=== PATIENT | female | born 1935 | race African-American/Black ===

== ENCOUNTER → 2016-11-18 | Outpatient (CLI) | payer MEDICARE ==
[2016-11-18 13:19] LABS: ABSOLUTE BASOPHILS # (AUTO) 0.1 10^3/uL (0.0-0.2); ABSOLUTE EOSINOPHILS # (AUTO) 0.2 10^3/uL (0.0-0.6); ABSOLUTE LYMPHOCYTES (AUTO) 2.4 10^3/uL (0.5-4.7); ABSOLUTE MONOCYTES (AUTO) 0.8 10^3/uL (0.1-1.4); ABSOLUTE NEUT (AUTO) 6.1 10^3/uL (1.7-8.2); BASOPHILS % (AUTO) 0.7 % (0-2); EOSINOPHILS % (AUTO) 2.2 % (0-6); HEMATOCRIT 31.3 % (36.0-47.0); HEMOGLOBIN 10.1 g/dL (12.0-15.5); MEAN CORPUSCULAR HEMOGLOBIN 21.2 pg (27.0-33.4); MEAN CORPUSCULAR HGB CONC 32.3 g/dL (32.0-36.0); MEAN CORPUSCULAR VOLUME 66 fl (80-97); MONOCYTES % (AUTO) 8.7 % (3-13); RED BLOOD COUNT 4.77 10^6/uL (3.72-5.28); SEGMENTED NEUTROPHILS % (AUTO) 63.4 % (42-78); WHITE BLOOD COUNT 9.7 10^3/uL (4.0-10.5)
[2016-11-18 13:42] LABS: ALANINE AMINOTRANSFERASE 34 U/L (9-52); ALBUMIN 4.1 g/dL (3.5-5.0); ALKALINE PHOSPHATASE 76 U/L (38-126); ANION GAP 15 (5-19); ASPARTATE AMINO TRANSFERASE 30 U/L (14-36); BILIRUBIN,DIRECT 0.3 mg/dL (0.0-0.4); BILIRUBIN,TOTAL 0.5 mg/dL (0.2-1.3); BLOOD UREA NITROGEN 41 mg/dL (7-20); C-REACTIVE PROTEIN 15.6 mg/L (<10.0); CALCIUM 9.8 mg/dL (8.4-10.2); CARBON DIOXIDE 19 mmol/L (22-30); CHLORIDE 109 mmol/L (98-107); CREATININE RESULT 1.51 mg/dL (0.52-1.25); GLUCOSE 146 mg/dL (75-110); POTASSIUM 4.5 mmol/L (3.6-5.0); SODIUM 142.6 mmol/L (137-145); TOTAL PROTEIN 7.5 g/dL (6.3-8.2)
[2016-11-18 13:56] LABS: ERYTHROCYTE SEDIMENTATION RATE 45 mm/hr (0-30)
== END ==
LOC: WC 13:00
PROVIDERS: ATTEND Preventive Medicine Undersea and Hyperbaric Medicine
DX: E11.621 Type 2 diabetes mellitus with foot ulcer (principal); L97.412 Non-pressure chronic ulcer of right heel and midfoot with fat layer exposed
CPT/HCPCS: 36415; 80053; 83036; 85025; 85652; 86140

== ENCOUNTER → 2016-11-18 | Outpatient (CLI) | payer MEDICARE | LOC: RAD 12:32 | PROVIDERS: ATTEND Preventive Medicine Undersea and Hyperbaric Medicine | DX: L97.412 Non-pressure chronic ulcer of right heel and midfoot with fat layer exposed (principal) ==

== ENCOUNTER → 2016-12-30 | Outpatient (CLI) | payer MEDICARE ==
--- NOTE | 2016-12-30 15:56 | RADIOLOGY REPORT (SQ) ---
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 TECHNIQUE: AP, lateral and oblique radiographic images acquired of the right foot. LIMITATIONS: None. FINDINGS: MINERALIZATION: Normal. BONES: The previously described large plantar ulcer with radiopaque ileum and along the surface is ag ain identified. The previously described subtle bony demineralization along the plantar aspect of th e calcaneus at the level of the calcaneal plantar spur is again identified and appears unchanged. Ag ain the possibility of bony involvement by osteomyelitis cannot be excluded. Bony structures are oth erwise stable. JOINTS: No effusions. SOFT TISSUES: The previously described large plantar ulcer is again identified as noted above. OTHER: No other significant finding. IMPRESSION: The overall appearance is unchanged as compared to the previous study. The previously d escribed large plantar ulcer is again identified. The previously described subtle bony demineralizat ion along the plantar aspect of the calcaneus at the level of the calcaneal plantar spur is again bertram ntified and appears unchanged. Again the possibility of bony involvement by osteomyelitis cannot be excluded. Clinical correlation is recommended. Other findings as noted above TECHNICAL DOCUMENTATION: JOB ID: [id number]- All Rights Reserved
== END ==
LOC: RAD 14:21
PROVIDERS: ATTEND Preventive Medicine Undersea and Hyperbaric Medicine
DX: L97.412 Non-pressure chronic ulcer of right heel and midfoot with fat layer exposed (principal)

== ENCOUNTER → 2017-01-09 | Outpatient (CLI) | payer MEDICARE, OTHER ==
--- NOTE | 2017-01-10 08:09 | WOMENS IMAGING REPORT ---
EXAM DESCRIPTION: BILAT SCREENING MAMMO W/CAD COMPLETED DATE/TIME: 01/09/2017 1:29 pm REASON FOR STUDY: Z12.31, ROUTINE SCREENING MAMMO Z12.31 ENCNTR SCREEN MAMMOGRAM FOR MALIGNANT NEOP LASM OF YFN COMPARISON: Multiple since 2009 TECHNIQUE: Standard craniocaudal and mediolateral oblique views of each breast recorded using Opality[employer] l acquisition. LIMITATIONS: None. FINDINGS: Findings present which are benign by mammographic criteria. No suspicious masses, calcifi cations or architectural distortion. Pertinent benign findings: Bilateral benign calcifications Read with the assistance of CAD. .[place] - R2 Cenova Version 1.3 .[facility] - R2 Cenova Version 1.3 .[facility] - R2 Cenova Version 2.4 .[facility] - R2 Cenova Version 2.4 .[facility] - R2 Liquor Runner Version 9.2 Benign mammographic findings may include one or more of the following: Smooth masses, popcorn/rim/co arse calcifications, asymmetries, post-procedure changes, and lesions with long-standing stability. IMPRESSION: BENIGN MAMMOGRAPHIC FINDINGS. BIRADS 2 BREAST DENSITY: b. There are scattered areas of fibroglandular density. BIRAD: 2 BENIGN FINDING(S) RECOMMENDATION: ROUTINE SCREENING COMMENT: The patient has been notified of the results by letter per MQSA requirements. Additional no tification policies are in place for contacting patient with suspicious or incomplete findings. Quality ID #[id number]: The [employer] recommends an annual screening mammogram for women aged 40 years or over. This facility utilizes a reminder system to ensure that all patients receive reminder letters, and/or direct phone calls for appointments. This includes reminders for routine scr eening mammograms, diagnostic mammograms, or other Breast Imaging Interventions when appropriate. Th is patient will be placed in the appropriate reminder system. The [employer] (ACR) has developed recommendations for screening MRI of the breast s in certain patient populations, to be used in conjunction with mammography. Breast MRI surveillanc e may be appropriate for women with more than 20% lifetime risk of developing breast cancer as deter mined by genetic testing, significant family history of the disease, or history of mantle radiation f or Hodgkins Disease. ACR Practice Guidelines 2008. TECHNICAL DOCUMENTATION: FINDING NUMBER: (1) ASSESSMENT: (1) JOB ID: [id number] [email or web address]- All Rights Reserved
== END ==
LOC: WI 11:30
PROVIDERS: ATTEND Physician Assistant
DX: Z12.31 Encounter for screening mammogram for malignant neoplasm of breast (principal)
CPT/HCPCS: 77067; G0202

== ENCOUNTER → 2017-04-25 | Outpatient (CLI) | payer MEDICARE, OTHER ==
[2017-04-25 18:27] LABS: ABSOLUTE BASOPHILS # (AUTO) 0.1 10^3/uL (0.0-0.2); ABSOLUTE EOSINOPHILS # (AUTO) 0.2 10^3/uL (0.0-0.6); ABSOLUTE LYMPHOCYTES (AUTO) 2.4 10^3/uL (0.5-4.7); ABSOLUTE MONOCYTES (AUTO) 0.7 10^3/uL (0.1-1.4); ABSOLUTE NEUT (AUTO) 4.5 10^3/uL (1.7-8.2); BASOPHILS % (AUTO) 0.9 % (0-2); EOSINOPHILS % (AUTO) 2.3 % (0-6); HEMATOCRIT 30.8 % (36.0-47.0); HEMOGLOBIN 10.1 g/dL (12.0-15.5); HGB HCT DIFFERENCE -0.5; LYMPHOCYTES % (AUTO) 30.1 % (13-45); MEAN CORPUSCULAR HEMOGLOBIN 21.6 pg (27.0-33.4); MEAN CORPUSCULAR HGB CONC 32.9 g/dL (32.0-36.0); MEAN CORPUSCULAR VOLUME 66 fl (80-97); MONOCYTES % (AUTO) 9.5 % (3-13); RED BLOOD COUNT 4.68 10^6/uL (3.72-5.28); RED CELL DISTRIBUTION WIDTH 16.5 % (11.5-14.0); SEGMENTED NEUTROPHILS % (AUTO) 57.2 % (42-78); WHITE BLOOD COUNT 7.8 10^3/uL (4.0-10.5)
[2017-04-25 18:47] LABS: ALANINE AMINOTRANSFERASE 32 U/L (9-52); ALBUMIN 3.9 g/dL (3.5-5.0); ALKALINE PHOSPHATASE 69 U/L (38-126); ANION GAP 12 (5-19); ASPARTATE AMINO TRANSFERASE 28 U/L (14-36); BILIRUBIN,DIRECT 0.4 mg/dL (0.0-0.4); BILIRUBIN,TOTAL 0.4 mg/dL (0.2-1.3); BLOOD UREA NITROGEN 37 mg/dL (7-20); C-REACTIVE PROTEIN 9.4 mg/L (<10.0); CARBON DIOXIDE 25 mmol/L (22-30); CHLORIDE 106 mmol/L (98-107); CREATININE RESULT 1.47 mg/dL (0.52-1.25); GLUCOSE 106 mg/dL (75-110); POTASSIUM 4.7 mmol/L (3.6-5.0); SODIUM 142.5 mmol/L (137-145); TOTAL PROTEIN 7.5 g/dL (6.3-8.2)
[2017-04-25 19:13] LABS: ERYTHROCYTE SEDIMENTATION RATE 41 mm/hr (0-30)
== END ==
LOC: RAD 17:32
PROVIDERS: ATTEND Preventive Medicine Undersea and Hyperbaric Medicine
DX: E11.621 Type 2 diabetes mellitus with foot ulcer (principal); L97.512 Non-pressure chronic ulcer of other part of right foot with fat layer exposed
CPT/HCPCS: 36415; 80053; 83036; 85025; 85652; 86140

== ENCOUNTER 2019-03-23 19:55 | Emergency (ER) | payer MEDICARE ==
--- NOTE | 2019-03-23 20:27 | ER Document Report ---
ED Medical Screen (RME) - General Chief Complaint: Fall Stated Complaint: FALL Time Seen by Provider: 03/23/19 20:18 Primary Care Provider: SIN ACEVEDO PA-C [Primary Care Provider] - Follow up as needed Notes: HPI: 83-year-old female with a history of diabetes, chronic debilitation who only transfers minimally with assistance at baseline, history of chronic left- sided weakness, decubitus ulcers on bilat feet, here after she attempted to get up out of her chair without waiting for assistance to go to the restroom and subsequently tripped and lost her balance and fell onto her buttocks and hit her left shoulder on the chair. The patient's daughter who she lives with was in the adjacent room and heard her fall and immediately went to her side. she wasn't laying on the floor long. She states the patient was sitting down with her legs out in front of her and leaning on her left shoulder. she denies hitting her head. no loc. no vomiting. no ams,. no seizure like activity. no incontinence. She complains of neck pain, left shoulder/arm pain. Patient is a poor historian so history is limited. She denies any preceding fall symptoms. She denies any pain anywhere else. She does take aspirin but denies any other blood thinners. She has PT/OT at home which just started secondary to her chronic left-sided weakness which daughter and patient state is unchanged. She is not able to lift her left arm up or much at all without using her other arm to move it. This is her baseline however she usually does not have pain. Patient does not walk either at baseline. No numbness or tingling. No other complaints at this time. ROS neg to include 10 systems, unless mentioned in the hpi. PE:>>>> PHYSICAL_EXAM: GENERAL_APPEARANCE: well_nourished, alert, cooperative, no_acute_distress, no_obvious_discomfort. pleasant, obese chronically debilitated appearing but not toxic elderly black female, smiling, speaking in full sentences, in no sign of pain or resp distress, daughter andn grandson at bedside VITALS: reviewed, see vital signs table. HEAD: no_swelling\tenderness on the head. normocephalic. atraumatic. no christiansen signs. no raccoons eyes. EYES: PERRL, EOMI, conjunctiva_clear. NOSE: no_nasal_discharge. MOUTH: (-)decreased moisture. THROAT: no_tonsilar_inflammation, no_airway_obstruction. no_lymphadenopathy NECK: supple, no midline neck_tenderness, no step offs or deformities. pt sits in position of comfort with neck flexed. she has ttp of bilat paracervical musculature. spasm noted. palpation here reproduces pts pain. no overlying skin changes. slight decreased rom in pts neck which this appears could be her baseline. full strength. no meningeal signs. no sign of central cord syndrome. BACK: no_back_tenderness. CHEST_WALL: no_chest_tenderness other than over left upper anterior chest/clavicle region. no overlying skin changes LUNGS: no_wheezing, ctab (-)accessory muscle use, good air exchange bilateral. HEART: normal_rate, normal_rhythm, ABDOMEN: normal_BS, soft, no_abd_tenderness, (-)guarding, (-)rebound, no distension or peritoneal signs. no cva ttp EXTREMITIES: strength 5/5 in all_extremities except left arm which pt has no active strength or rom in the arm and only is able to do some passive rom in the left shoulder, elbow, and wrist limiting exam as it is hard to discern if this is her baseline or not, good pulses in all_extremities, no other tenderness in the extremities, chronic unchanged bilat lower extremity_edema. full rom. gait not assessed as pt is nonambulatory at baseline and a fall risk. snuff box ttp is questionable in the left wrist. good pulses. brisk cap refill. good hand piercer with the right being slightly stronger than the left which appears to be the pts baseline per pt and daughter also. chronic bilat leg edema in hosing and special orthotic shoes. these weren't removed. NEURO: motor and sensation intact, SKIN: warm, dry, good_color, no_rash. MENTAL_STATUS: speech_clear, oriented_X_3, normal_affect, responds_appropriately to questions. MDM: I have ordered labs and initial work-up and patient will be transferred to the main ER for further work-up. I have greeted and performed a rapid initial assessment of this patient. A comprehensive ED assessment and evaluation of the patient, analysis of test results and completion of medical decision making process will be conducted by an additional ED providers. Documentation achieved through voice recording which my lead to some occasional accidental typographical errors. Extensive efforts have been made to proof read documentation to make sure these are the least as possible Temp Pulse Resp BP Pulse Ox 03/23/19 20:08 98.4 F 90 20 190/77 H 97 Category Date Time Status EKG Documentation STAT Care 03/23/19 20:30 Ordered EKG Documentation STAT Care 03/23/19 20:30 Ordered CHEST 2 VIEWS [RAD] Stat Exams 03/23/19 20:[address] CERVICAL SPINE WITHOUT [CT] Stat Exams 03/23/19 20:28 Ordered Left Elbow [ELBOW LEFT AP/LATERAL] [RAD] Stat Exams 03/23/19 20:28 Ordered Left Shoulder [SHOULDER LEFT 2 OR MORE VIEWS] [RAD] Exams 03/23/19 20:28 Ordered Stat Left Wrist [WRIST LEFT 3 VIEWS] [RAD] Stat Exams 03/23/19 20:29 Ordered URINALYSIS [URIN] Stat Lab 03/23/19 20:12 Received Acetaminophen [Tylenol 325 mg Tablet] Med 03/23/19 20:42 Once 650 mg PO NOW ONE EKG ER ONLY [ER] Stat Oth 03/23/19 Ordered TRAVEL OUTSIDE OF THE [place] IN LAST 30 DAYS: No - Related Data Allergies/Adverse Reactions: No Known Allergies Allergy (Verified 03/23/19 19:59) Past Medical History - Past Medical History Cardiac Medical History: Reports: Hx Hypercholesterolemia, Hx Hypertension, Hx Peripheral Vascular Disease Denies: Hx Coronary Artery Disease, Hx Heart Attack Pulmonary Medical History: Denies: Hx Asthma, Hx Bronchitis, Hx COPD, Hx Pneumonia, Hx Tuberculosis Neurological Medical History: Denies: Hx Cerebrovascular Accident, Hx Seizures Endocrine Medical History: Reports: Hx Diabetes Mellitus Type 2 GI Medical History: Reports: Hx Gastroesophageal Reflux Disease Musculoskeltal Medical History: Reports Hx Arthritis, Reports Hx Musculoskeletal Deformity Skin Medical History: Reports Hx Cellulitis Past Surgical History: Reports: Hx Cardiac Catheterization - Stents, Hx Orthopedic Surgery - R foot surgery. Denies: Hx Pacemaker - Immunizations Hx Diphtheria, Pertussis, Tetanus Vaccination: Yes Physical Exam - Vital signs Vitals: Temp Pulse Resp BP Pulse Ox 98.4 F 90 20 190/77 H 97 03/23/19 20:08 03/23/19 20:08 03/23/19 20:08 03/23/19 20:08 03/23/19 20:08 Course - Vital Signs Vital signs: Temp Pulse Resp BP Pulse Ox 98.4 F 90 20 190/77 H 97 03/23/19 20:08 03/23/19 20:08 03/23/19 20:08 03/23/19 20:08 03/23/19 20:08 Doctor's Discharge - Discharge Referrals: SIN ACEVEDO PA-C [Primary Care Provider] - Follow up as needed
[2019-03-23 20:38] LABS: APPEARANCE,URINE SLIGHTLY-CLOUDY; BILIRUBIN,URINE NEGATIVE (NEGATIVE); COLOR,URINE YELLOW; GLUCOSE, URINE NEGATIVE (NEGATIVE); KETONES,URINE NEGATIVE (NEGATIVE); LEUKOCYTE ESTERASE,URINE SMALL (NEGATIVE); NITRITE,URINE NEGATIVE (NEGATIVE); PROTEIN,URINE NEGATIVE (NEGATIVE); URINE SPECIFIC GRAVITY 1.014; UROBILINOGEN,URINE NEGATIVE mg/dL (<2.0)
[2019-03-23] MEDS ORDERED: ACETAMINOPHEN 325 MG TABLET PO ONE (20:42)
--- NOTE | 2019-03-23 21:27 | RADIOLOGY REPORT (SQ) ---
CT CERVICAL SPINE WITHOUT IV CONTRAST EXAM DATE: 03/23/2019 8:28 PM CDT HISTORY: Neck pain. COMPARISON: None. TECHNIQUE: CT scan of the cervical spine without IV contrast. This exam was performed according to our departmental dose-optimization program, which includes automated exposure control, adjustment of the mA and/or kV according to patient size and/or use of iterative reconstruction technique. FINDINGS: No acute cervical fracture or prevertebral soft tissue swelling is seen. There is straightening of the normal cervical lordosis, which may be due to cervical collar, muscle spasm, or patient positioning. Multilevel degenerative disc disease along with facet arthropathy is present. There are multilevel disc bulges but without advanced canal stenosis identified. IMPRESSION: No acute fracture or subluxation of the cervical spine.
--- NOTE | 2019-03-23 21:30 | RADIOLOGY REPORT (SQ) ---
3 VIEWS OF LEFT SHOULDER AND WRIST 2 VIEWS OF LEFT ELBOW EXAM DATE: 03/23/2019 8:28 PM CDT HISTORY: Fall. COMPARISON: None. FINDINGS: No acute fracture or dislocation is seen. A subacromial spur is noted. Calcific tendinosis of the flexor tendon complex is noted. No elbow joint effusion. Generalized osteopenia is present. Mineralization of the TFCC. IMPRESSION: No acute fracture. Scattered degenerative changes.
--- NOTE | 2019-03-23 21:32 | RADIOLOGY REPORT (SQ) ---
XR CHEST 1 VIEW EXAM DATE: 03/23/2019 8:29 PM CDT HISTORY: Fall. COMPARISON: 03/08/2016 FINDINGS: The heart size is within normal limits. There is a mildly displaced fracture of the right sixth posterior rib with adjacent pulmonary contusion. No pleural effusions or pneumothorax is seen. IMPRESSION: Mildly displaced fracture of the right sixth posterior rib with adjacent pulmonary contusion in the right lung. Consider CT scan for complete evaluation.
[2019-03-24] MEDS ORDERED: CEPHALEXIN 500 MG CAPSULE PO ONE (00:32)
--- NOTE | 2019-03-24 00:40 | ER Document Report ---
ED General - General Chief Complaint: Fall Stated Complaint: FALL Time Seen by Provider: 03/23/19 20:18 Primary Care Provider: SIN ACEVEDO PA-C [Primary Care Provider] - Follow up as needed Mode of Arrival: Wheelchair Information source: Patient, Relative TRAVEL OUTSIDE OF THE [place] IN LAST 30 DAYS: No - HPI Notes: Patient is a 83-year-old female history of chronic weakness, who is minimally able to ambulate short distance with a walker with assistance chronically presents to the emergency department with reports she was trying to get out of her chair and slipped and fell injuring her left shoulder, left lateral chest, left elbow, left hand and neck. The patient denies any head injury or loss of consciousness or headache. No anterior chest pain or difficulty breathing or numbness or paresthesia. Patient states she has chronic weakness and has physical therapy coming to the house once to twice a week to assist her, although she is not doing any other exercises. She denies any constipation, diarrhea, dysuria, nausea, vomiting. - Related Data Allergies/Adverse Reactions: No Known Allergies Allergy (Verified 03/23/19 19:59) Past Medical History - General Information source: Patient, Relative - Social History Smoking Status: Never Smoker Frequency of alcohol use: None Drug Abuse: None Lives with: Family Family History: Reviewed & Not Pertinent, Hypertension Patient has suicidal ideation: No Patient has homicidal ideation: No - Past Medical History Cardiac Medical History: Reports: Hx Hypercholesterolemia, Hx Hypertension, Hx Peripheral Vascular Disease Denies: Hx Coronary Artery Disease, Hx Heart Attack Pulmonary Medical History: Denies: Hx Asthma, Hx Bronchitis, Hx COPD, Hx Pneumonia, Hx Tuberculosis Neurological Medical History: Denies: Hx Cerebrovascular Accident, Hx Seizures Endocrine Medical History: Reports: Hx Diabetes Mellitus Type 2 Renal/ Medical History: Denies: Hx Peritoneal Dialysis GI Medical History: Reports: Hx Gastroesophageal Reflux Disease Musculoskeletal Medical History: Reports Hx Arthritis, Reports Hx Musculoskeletal Deformity Skin Medical History: Reports Hx Cellulitis Past Surgical History: Reports: Hx Cardiac Catheterization - Stents, Hx Orthopedic Surgery - R foot surgery. Denies: Hx Pacemaker - Immunizations Hx Diphtheria, Pertussis, Tetanus Vaccination: Yes Hx Pneumococcal Vaccination: 07/11/12 Review of Systems - Review of Systems -: Yes All other systems reviewed and negative Physical Exam - Vital signs Vitals: Temp Pulse Resp BP Pulse Ox 98.4 F 90 20 190/77 H 97 03/23/19 20:08 03/23/19 20:08 03/23/19 20:08 03/23/19 20:08 03/23/19 20:08 - Notes Notes: PHYSICAL EXAMINATION: GENERAL: Well-appearing, well-nourished and in no acute distress. HEAD: Atraumatic, normocephalic. EYES: Pupils equal round and reactive to light, extraocular movements intact, conjunctiva are normal. ENT: Nares patent, oropharynx clear without exudates. Moist mucous membranes. NECK: Normal range of motion, supple without lymphadenopathy. Mild discomfort left paraspinal region cervical spine. No bony deformity. Trachea is midline. LUNGS: Breath sounds clear to auscultation bilaterally and equal. No wheezes rales or rhonchi. HEART: Regular rate and rhythm without murmurs. Patient does have some pain to the left lateral lower chest wall region. No bony deformity or crepitance. Patient denies any significant pain to the right posterior lateral rib cage corresponding to the sixth rib, but she does acknowledge a fall over a month ago and had pain for several weeks there. ABDOMEN: Soft, nontender, nondistended abdomen. No guarding, no rebound. No masses appreciated. Female : deferred Musculoskeletal: Normal range of motion, no pitting or edema. No cyanosis. Patient has mild pain through the left shoulder and elbow and wrist with a contusion to the dorsum of the hand. No specific hand pain. No crepitance or bony deformity. Distally, the patient has good sensation and capillary refill and pulses. Patient has 2+ edema both lower extremities. She does have chronic valgus deformity through the left lower extremity which is also unchanged. NEUROLOGICAL: Cranial nerves grossly intact. Normal speech. Normal sensory exams. Patient has a gross generalized weakness more pronounced in the lower extremities which is chronic. No acute abnormality noted on exam. Good motor strength both upper extremities. PSYCH: Normal mood, normal affect. SKIN: Warm, Dry, normal turgor, no rashes or lesions noted. Course - Re-evaluation Re-evalutation: 03/24/19 00:36 X-rays were negative on the shoulder elbow and wrist. Patient was able to hold this up against gravity without difficulty. 03/24/19 00:38 Patient shows no specific pain over the right posterior lateral rib cage, and this fracture is subacute by history. There is no evidence for significant pulmonary contusion or effusion or pneumothorax or pneumonia. No obvious left- sided rib fractures. No evidence for cardiac ischemia. Patient has had a recent CT scan of the head within the last 2 to 3 weeks according to family which showed no acute CVA or other abnormality, and her regular practitioner is following up with PT concerning the progressive weakness and difficulty ambulating. I discussed with the patient and family the possibility of assisted living versus a fci placement versus rehab if symptoms do not improve, and they will follow-up with her regular practitioner. - Vital Signs Vital signs: Temp Pulse Resp BP Pulse Ox 98.4 F 90 20 190/77 H 97 03/23/19 20:08 03/23/19 20:08 03/23/19 20:08 03/23/19 20:08 03/23/19 20:08 - Laboratory Laboratory results interpreted by me: 03/23/19 20:12 Ur Leukocyte Esterase SMALL H Urine Ascorbic Acid 40 H Discharge - Discharge Clinical Impression: Accidental fall Qualifiers: Encounter type: initial encounter Qualified Code(s): W19.XXXA - Unspecified fall, initial encounter Rib fracture Qualifiers: Encounter type: initial encounter Rib fracture type: single rib Fracture type: closed Laterality: right Qualified Code(s): S22.31XA - Fracture of one rib, right side, initial encounter for closed fracture Sprain of shoulder and upper arm Qualifiers: Encounter type: initial encounter Laterality: left Qualified Code(s): S43.402A - Unspecified sprain of left shoulder joint, initial encounter Contusion Qualifiers: Encounter type: initial encounter Contusion area: hand Laterality: left Qualified Code(s): S60.222A - Contusion of left hand, initial encounter Urinary tract infection Qualifiers: Urinary tract infection type: acute cystitis Hematuria presence: without hematuria Qualified Code(s): N30.00 - Acute cystitis without hematuria Condition: Stable Disposition: HOME, SELF-CARE Additional Instructions: Talk with your doctor about having physical therapy come by 3-5 times per week to assist with rehab. Exercise daily using weights and exercise bands. Prescriptions: Cephalexin Monohydrate [Keflex 500 mg Capsule] 500 mg PO TID 5 Days capsule Referrals: SIN ACEVEDO PA-C [Primary Care Provider] - Follow up as needed
[2019-03-24 00:58] VITALS: BP 148/74
--- NOTE | 2019-03-24 14:53 | EKG REPORT ---
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
== END 2019-03-24 00:56 | disposition home or self-care (01) ==
LOC: ER 19:55
DX: S43.402A Unspecified sprain of left shoulder joint, initial encounter (principal); S60.222A Contusion of left hand, initial encounter; M25.512 Pain in left shoulder; M25.522 Pain in left elbow; M25.532 Pain in left wrist; W07.XXXA Fall from chair, initial encounter; Y93.89 Activity, other specified; S22.31XA Fracture of one rib, right side, initial encounter for closed fracture; W19.XXXA Unspecified fall, initial encounter; R00.0 Tachycardia, unspecified; N30.00 Acute cystitis without hematuria; I45.2 Bifascicular block; R53.1 Weakness; I10 Essential (primary) hypertension; E11.51 Type 2 diabetes mellitus with diabetic peripheral angiopathy without gangrene; Z95.5 Presence of coronary angioplasty implant and graft; R60.0 Localized edema
CPT/HCPCS: 93005; 99284; 87086; 81001; 71045; 73070; 73030; 73110; 72125; 93010; A9270 ×2

== ENCOUNTER 2019-12-23 18:53 | Inpatient (IN) | payer MEDICARE ==
[2019-12-23] MEDS ORDERED: NORMAL SALINE 1000 ML 1,000 ML IV ONE (19:14)
[2019-12-23] MEDS ORDERED: MIDAZOLAM HCL 50 MG/100 ML RTUINJ IV PRN (19:15)
[2019-12-23] MEDS ORDERED: DEXTROSE 5%-WATER 250 ML with NOREPINEPHRINE BITARTRATE 4 MG IV PRN ×2 (19:15)
--- NOTE | 2019-12-23 19:33 | RADIOLOGY REPORT (SQ) ---
EXAM DESCRIPTION: CHEST SINGLE VIEW IMAGES COMPLETED DATE/TIME: 12/23/2019 7:20 pm REASON FOR STUDY: post arrest COMPARISON: 03/23/2019 EXAM PARAMETERS: NUMBER OF VIEWS: One view. TECHNIQUE: Single frontal radiographic view of the chest acquired. RADIATION DOSE: NA LIMITATIONS: None. FINDINGS: LUNGS AND PLEURA: Small bilateral pleural effusions suggested. No acute pulmonary consol idation. No pneumothorax. MEDIASTINUM AND HILAR STRUCTURES: No masses. Contour normal. HEART AND VASCULAR STRUCTURES: Stable appearance. Heart normal in size. Normal vasculature. BONES: The osseous structures are stable in appearance. Old healed right rib fracture. HARDWARE: Endotracheal tube is approximately 1.2 cm superior to the zora. OTHER: No other significant finding. IMPRESSION: 1. Status post endotracheal tube placement, with the tip approximately 1.2 cm superior to the zora. The tube needs to be repositioned. 2. Small bilateral pleural effusions suggested. COMMENT: 1. The results of this examination were discussed with emergency department provider on at 19:26 hours. TECHNICAL DOCUMENTATION: JOB ID: [id number] [employer]- All Rights Reserved Reading location - IP/workstation name: [email or web address]
--- NOTE | 2019-12-23 19:33 | ER Document Report ---
ED General - General Chief Complaint: Cardiac Arrest Stated Complaint: CARDIAC ARREST Time Seen by Provider: 12/23/19 19:02 TRAVEL OUTSIDE OF THE [place] IN LAST 30 DAYS: No - HPI Notes: Patient is an 84-year-old female brought into the emergency department by EMS for cardiac arrest. Initial history obtained entirely from EMS. Evidently the patient had a witnessed arrest. Family initiated CPR. There was a total of approximately 10 minutes from CPR initiation to ROSC. No epinephrine given, only high-quality CPR. Patient underwent RSI in the field, was started on Levophed when found to be hypotensive. She had responded well to this medicine, and is brought into the emergency department for further evaluation. Per EMS, patient has a history of high blood pressure, high cholesterol, and diabetes. Family also stated that she had a "bone infection" but they could not offer any further details in regards to this. - Related Data Allergies/Adverse Reactions: No Known Allergies Allergy (Verified 03/23/19 19:59) Past Medical History - General Information source: Emergency Med Personnel, [facility] Records - Social History Smoking Status: Never Smoker Family History: Reviewed & Not Pertinent, Hypertension Patient has homicidal ideation: No - Past Medical History Cardiac Medical History: Reports: Hx Hypercholesterolemia, Hx Hypertension, Hx Peripheral Vascular Disease Denies: Hx Coronary Artery Disease, Hx Heart Attack Pulmonary Medical History: Denies: Hx Asthma, Hx Bronchitis, Hx COPD, Hx Pneumonia, Hx Tuberculosis Neurological Medical History: Denies: Hx Cerebrovascular Accident, Hx Seizures Endocrine Medical History: Reports: Hx Diabetes Mellitus Type 2 Renal/ Medical History: Denies: Hx Peritoneal Dialysis GI Medical History: Reports: Hx Gastroesophageal Reflux Disease Musculoskeletal Medical History: Reports Hx Arthritis, Reports Hx Musculoskeletal Deformity Skin Medical History: Reports Hx Cellulitis Past Surgical History: Reports: Hx Cardiac Catheterization - Stents, Hx Orthopedic Surgery - R foot surgery. Denies: Hx Pacemaker - Immunizations Hx Diphtheria, Pertussis, Tetanus Vaccination: Yes Hx Pneumococcal Vaccination: 07/11/12 Review of Systems - Review of Systems -: Yes ROS unobtainable due to patient's medical condition - Patient sedated and intubated at this time Physical Exam - Vital signs Vitals: Temp 98.0 F 12/23/19 18:53 - Notes Notes: This is an 84-year-old female, lying supine in bed 5. She is intubated, sedated. Head is normocephalic and appears atraumatic, pupils are 2 mm and round bilaterally. Oral mucosa is moist. Heart is regular rate and rhythm, lungs show equal chest wall rise, breath sounds bilaterally. No gurgling over the epigastrium. Abdomen is soft, no palpable hernias. Extremities without cyanosis, clubbing. Skin is warm and dry. She does have a puckered callus noted over the left calcaneus, no significant surrounding edema or erythema. Patient is rolled, no clear cellulitis sores or ulcerations are noted. No spontaneous movements at this time, but patient did receive sedation in the field. Course - Re-evaluation Re-evalutation: 12/23/19 19:32 Patient presents to the emergency department for evaluation after cardiac arrest/PEA. The patient had return of circulation. She was maintained on a Levophed drip for hypotension. Laboratory investigations, Castro catheter were ordered. Chest x-ray was ordered, which revealed the ET tube to be low. Order given verbally to notify respiratory therapy to withdraw the ET tube 3 cm. Patient is currently stable. Awaiting laboratory investigations, we will continue to monitor. 12/23/19 20:23 Nursing was unable to obtain labs. Decision was made to perform a femoral stick. The area was thoroughly cleansed using chlorhexidine prep. Ultrasound was used to identify the left femoral artery and femoral vein. Using an 18- gauge, I did advance the needle into the femoral vein under direct visualization. Dark venous blood, without pulsation, was obtained. Lab work and cultures were obtained. The needle was withdrawn. Hemostasis was achieved within 30 seconds with direct pressure. No complications noted. 12/23/19 22:09 I was able to further clarify history with daughter. She was not present, but was the primary roving sizer for her mother for some time. Evidently she recently moved from [place]. She has right-sided weakness, does not walk, nevertheless several months has not been talking. She has had progressive dysphagia. According to family she "was not well." They thought it was because she had not had a bowel movement in several days. She was treated for that on Friday, had bowel movements, and they thought there was an improvement. He it was then reported that the patient was hallucinating, acting more strangely, then suffered cardiac arrest. It is unclear at this time as to whether or not this was witnessed. 12/23/19 22:[address] scan failed to reveal any signs of fracture or acute bleeding. I did go in to reevaluate the patient. She is opening her eyes, is able to follow some commands. Versed therapy was initiated, had been previously being held to evaluate neurological status. I spoke with RUBIO Burton and construction checker overnight. He will accept the patient for further care. 12/23/19 23:36 Patient is still in the department. Decision was made to perform rapid COVID-19 testing. This is pending at this time. Patient's urinalysis revealed signs consistent with a UTI. Urine culture ordered. Blood cultures are already pending. The patient was given IV Rocephin. - Vital Signs Vital signs: Temp Pulse Resp BP Pulse Ox 98.0 F 16 159/79 H 100 12/23/19 18:53 12/23/19 22:10 12/23/19 22:10 12/23/19 22:10 - Laboratory Result Diagrams: 12/23/19 20:20 12/23/19 20:20 Laboratory results interpreted by me: 12/23/19 12/23/19 12/23/19 19:45 20:20 20:20 RBC 5.54 H MCV 72 L MCH 22.3 L MCHC 31.0 L RDW 16.1 H Lymph % (Auto) 11.1 L Borden % (Auto) 2.7 L Absolute Neuts (auto) 8.5 H Seg Neutrophils % 86.2 H PT 20.4 H ABG pO2 273.4 H ABG HCO3 28.9 H ABG Total CO2 30.2 H ABG O2 Saturation 99.7 H Carbon Dioxide BUN Glucose Albumin Urine Protein Urine Glucose (UA) Urine Ketones Urine Blood Leukocyte Esterase Rfl 12/23/19 12/23/19 20:20 22:02 RBC MCV MCH MCHC RDW Lymph % (Auto) Borden % (Auto) Absolute Neuts (auto) Seg Neutrophils % PT ABG pO2 ABG HCO3 ABG Total CO2 ABG O2 Saturation Carbon Dioxide 32 H BUN 33 H Glucose 265 H Albumin 3.4 L Urine Protein 30 H Urine Glucose (UA) 150 H Urine Ketones TRACE H Urine Blood SMALL H Leukocyte Esterase Rfl LARGE H - Diagnostic Test Radiology reviewed: Image reviewed, Reports reviewed Radiology results interpreted by me: 12/23/19 22:33 Chest X-Ray 12/23/19 19:14 IMPRESSION: 1. Status post endotracheal tube placement, with the tip approximately 1.2 cm superior to the zora. The tube needs to be repositioned. 2. Small bilateral pleural effusions suggested. Head CT 12/23/19 20:22 IMPRESSION: No acute intracranial abnormality. Age-appropriate atrophy with minor small vessel ischemic change TECHNICAL DOCUMENTATION: Quality ID # 436: Final reports with documentation of one or more dose reduction techniques (e.g., Automated exposure control, adjustment of the mA and/or kV according to patient size, use of iterative reconstruction technique) copyright 2011 [employer]- All Rights Reserved Critical Care Note - Critical Care Note Total time excluding time spent on procedures (mins): 45 Discharge - Discharge Clinical Impression: Cardiac arrest Urinary tract infection Qualifiers: Urinary tract infection type: site unspecified Hematuria presence: without hematuria Qualified Code(s): N39.0 - Urinary tract infection, site not specified Condition: Stable Disposition: ADMITTED INPATIENT Admitting Provider: Lawanda (Road Roller Engineer) Unit Admitted: ICU
[2019-12-23 20:08] LABS: ARTERIAL BLOOD BASE EXCESS 4.4 mmol/L; ARTERIAL BLOOD FIO2 70%; ARTERIAL BLOOD H2CO3 1.28 mmol/L (1.05-1.35); ARTERIAL BLOOD HCO3 28.9 mmol/L (20-24); ARTERIAL BLOOD O2 SATURATION 99.7 % (94-98); ARTERIAL BLOOD PCO2 42.5 mmHg (35-45); ARTERIAL BLOOD PH 7.45 (7.35-7.45); ARTERIAL BLOOD PO2 273.4 mmHg (80-100); ARTERIAL BLOOD TOTAL CO2 30.2 mmol/L (21-25)
[2019-12-23 20:35] LABS: ABSOLUTE LYMPHOCYTES (AUTO) 1.1 10^3/uL (0.5-4.7); ABSOLUTE MONOCYTES (AUTO) 0.3 10^3/uL (0.1-1.4); ABSOLUTE NEUT (AUTO) 8.5 10^3/uL (1.7-8.2); HEMATOCRIT 39.9 % (36.0-47.0); HEMOGLOBIN 12.4 g/dL (12.0-15.5); LYMPHOCYTES % (AUTO) 11.1 % (13-45); MEAN CORPUSCULAR HEMOGLOBIN 22.3 pg (27.0-33.4); MEAN CORPUSCULAR VOLUME 72 fl (80-97); MONOCYTES % (AUTO) 2.7 % (3-13); PLATELET COUNT 226 10^3/uL (150-450); RED BLOOD COUNT 5.54 10^6/uL (3.72-5.28); RED CELL DISTRIBUTION WIDTH 16.1 % (11.5-14.0); SEGMENTED NEUTROPHILS % (AUTO) 86.2 % (42-78); TOTAL CELLS COUNTED % (AUTO) 100 %; WHITE BLOOD COUNT 9.9 10^3/uL (4.0-10.5)
[2019-12-23 20:45] LABS: INTERNATIONAL RATION (INR) 1.72; PROTHROMBIN TIME 20.4 SEC (11.4-15.4)
[2019-12-23 20:54] LABS: ALBUMIN 3.4 g/dL (3.5-5.0); ALKALINE PHOSPHATASE 57 U/L (38-126); ANION GAP 6 (5-19); ASPARTATE AMINO TRANSFERASE 23 U/L (14-36); BILIRUBIN,TOTAL 0.7 mg/dL (0.2-1.3); BLOOD UREA NITROGEN 33 mg/dL (7-20); CALCIUM 9.6 mg/dL (8.4-10.2); CARBON DIOXIDE 32 mmol/L (22-30); CHLORIDE 103 mmol/L (98-107); GLUCOSE 265 mg/dL (75-110); POTASSIUM 4.5 mmol/L (3.6-5.0); TOTAL PROTEIN 6.5 g/dL (6.3-8.2)
--- NOTE | 2019-12-23 22:21 | RADIOLOGY REPORT (SQ) ---
EXAM DESCRIPTION: CT HEAD WITHOUT IV CONTRAST COMPLETED DATE/TME: 12/23/2019 20:22 CLINICAL HISTORY: 84 years, Female, cardiac arrest, unresponsive COMPARISON: None. TECHNIQUE: 205 Images stored on PACS. All CT scanners at this facility use dose modulation, iterative reconstruction, and/or weight based dosing when appropriate to reduce radiation dose to as low as reasonably achievable (ALARA). [facility]: Dose Right [facility]: CareDose [facility]: Dose Right [facility]: Teradose 4D [facility]: Quill LIMITATIONS: None. FINDINGS: The globes are intact. Paranasal sinuses are well aerated. Endotracheal tube partially visualized. No displaced or depressed skull fracture. Increased secretions in the nasal cavities. No acute intracranial hemorrhage. CT is limited for evaluation of acute infarct. No CT evidence for large or territorial acute infarct. Diffuse age-appropriate atrophy. No mass or midline shift. Hypodensities in the periventricular and subcortical white matter, consistent with sequelae of small vessel ischemic change. IMPRESSION: No acute intracranial abnormality. Age-appropriate atrophy with minor small vessel ischemic change TECHNICAL DOCUMENTATION: Quality ID # 436: Final reports with documentation of one or more dose reduction techniques (e.g., Automated exposure control, adjustment of the mA and/or kV according to patient size, use of iterative reconstruction technique) copyright 2011 [employer]- All Rights Reserved
[2019-12-23 23:09] LABS: APPEARANCE,URINE TURBID; BILIRUBIN,URINE NEGATIVE (NEGATIVE); COLOR,URINE YELLOW; GLUCOSE, URINE 150 mg/dL (NEGATIVE); KETONES,URINE TRACE mg/dL (NEGATIVE); PROTEIN,URINE 30 mg/dL (NEGATIVE); UROBILINOGEN,URINE NEGATIVE mg/dL (<2.0)
[2019-12-23] MEDS ORDERED: CEFTRIAXONE 1 GM/D5W RTU 1 GM/50 ML RTUPB IV ONE (23:59)
[2019-12-24] MEDS ORDERED: RINGERS SOLUTION,LACTATED 1,000 ML IV PRN (03:43)
[2019-12-24] MEDS ORDERED: RINGERS SOLUTION,LACTATED 1,000 ML IV ONE ×2 (04:00→06:45)
[2019-12-24 04:09] LABS: HEMATOCRIT 41.5 % (36.0-47.0); HEMOGLOBIN 12.9 g/dL (12.0-15.5); MEAN CORPUSCULAR HEMOGLOBIN 22.7 pg (27.0-33.4); MEAN CORPUSCULAR VOLUME 73 fl (80-97); PLATELET COUNT 166 10^3/uL (150-450); RED BLOOD COUNT 5.68 10^6/uL (3.72-5.28); RED CELL DISTRIBUTION WIDTH 16.4 % (11.5-14.0); WHITE BLOOD COUNT 18.7 10^3/uL (4.0-10.5)
[2019-12-24 04:31] LABS: ALBUMIN 2.9 g/dL (3.5-5.0); ALKALINE PHOSPHATASE 45 U/L (38-126); AMYLASE 115 U/L (30-110); ANION GAP 8 (5-19); ASPARTATE AMINO TRANSFERASE 26 U/L (14-36); BILIRUBIN,DIRECT 0.1 mg/dL (0.0-0.4); BILIRUBIN,TOTAL 0.7 mg/dL (0.2-1.3); BLOOD UREA NITROGEN 35 mg/dL (7-20); CALCIUM 9.3 mg/dL (8.4-10.2); CARBON DIOXIDE 26 mmol/L (22-30); CHLORIDE 107 mmol/L (98-107); CHOLESTEROL 109.28 mg/dL (0-200); GLUCOSE 221 mg/dL (75-110); POTASSIUM 4.4 mmol/L (3.6-5.0); TOTAL PROTEIN 5.9 g/dL (6.3-8.2); TRIGLYCERIDES 78 mg/dL (<150)
[2019-12-24 04:42] LABS: DIRECT LDL 74 mg/dL (<100)
--- NOTE | 2019-12-24 05:42 | RADIOLOGY REPORT (SQ) ---
EXAM DESCRIPTION: XR CHEST 1 VIEW COMPLETED DATE/TME: 12/24/2019 00:00 CLINICAL HISTORY: 84 years, Female, ETT adjustment, OG tube placement COMPARISON: 12/23/2019 chest NUMBER OF VIEWS: 1 TECHNIQUE: Portable chest LIMITATIONS: None. FINDINGS: Heart size is stable. Interval placement of an enteric tube with the tip in the left upper quadrant/stomach. The tip of the endotracheal tube appears minimally retracted, with the tip 1.5 cm above the zora. Airspace opacities bilaterally with diffuse interstitial prominence, worsened from the prior. No pneumothorax. Atheromatous change thoracic aorta. IMPRESSION: Worsening interstitial and airspace opacities bilaterally. Enteric tube tip extends into the stomach. Slight retraction of the endotracheal tube as above copyright 2010 [employer]- All Rights Reserved
[2019-12-24] MEDS: HEPARIN SOD (PORCINE) 5,000 UNIT/ML 1 ML VIAL SUBCUT SCH ×3 (06:47→22:33)
[2019-12-24] MEDS ORDERED: DEXMEDETOMIDINE IN 0.9 % NACL 400 MCG/100 ML RTUPB IV PRN (06:53)
--- NOTE | 2019-12-24 09:28 | PDOC CRITICAL CARE PROG REPORT ---
General Date:: 12/24/19 ICU Day:: 1 Ventilator Day:: 1 Hospital Day:: 1 Resuscitation Status: Full Code Events in the past 12 to 24 Hours:: Recovered hemodynamically. Review of systems relevant to events:: CV, Pulmonary, neurological. Reason for ICU Addmission:: Status post cardiac arrest, respiratory failure. Intubated - Medications: Medications reviewed and adjusted accordingly: Yes Vasopressors:: None Sedation:: Precedex Physical Exam Vital Signs: Temp Pulse Resp BP Pulse Ox 98.6 F 88 16 106/57 L 99 12/24/19 08:00 12/24/19 08:00 12/24/19 08:00 12/24/19 08:00 12/24/19 08:00 Intake & Output 12/23/19 12/24/19 12/25/19 06:59 06:59 06:59 Intake Total 1072 25 Output Total 77 50 Balance 995 -25 Weight 70.4 kg Weight/Height Weight 70.4 kg Height 5 ft 6 in General appearance: PRESENT: no acute distress Head exam: PRESENT: atraumatic, normocephalic Eye exam: PRESENT: conjunctiva pink, EOMI, PERRLA. ABSENT: scleral icterus Ear exam: PRESENT: normal external ear exam Mouth exam: PRESENT: moist, tongue midline Respiratory exam: PRESENT: clear to auscultation pato. ABSENT: rales, rhonchi, wheezes Cardiovascular exam: PRESENT: RRR. ABSENT: diastolic murmur, rubs, systolic murmur GI/Abdominal exam: PRESENT: normal bowel sounds, soft. ABSENT: distended, guarding, mass, organolmegaly, rebound, tenderness Rectal exam: PRESENT: deferred Gentrourinary exam: PRESENT: indwelling catheter Extremities exam: PRESENT: full ROM. ABSENT: calf tenderness, clubbing, pedal edema Musculoskeletal exam: PRESENT: normal inspection Neurological exam: PRESENT: altered Skin exam: PRESENT: dry, intact, warm. ABSENT: cyanosis, rash Tubes/Lines: PRESENT: Endotracheal Tube, Nasogastic Tube Laboratory/Radiographs Laboratory Results: 12/24/19 03:55 12/24/19 03:55 12/23/19 12/23/19 12/23/19 19:45 19:45 20:20 WBC 9.9 RBC 5.54 H Hgb 12.4 Hct 39.9 MCV 72 L MCH 22.3 L MCHC 31.0 L RDW 16.1 H Plt Count 226 Seg Neutrophils % 86.2 H Carbonic Acid 1.28 HCO3/H2CO3 Ratio 22:1 ABG pH 7.45 ABG pCO2 42.5 ABG pO2 273.4 H ABG HCO3 28.9 H ABG O2 Saturation 99.7 H ABG Base Excess 4.4 VBG pH Cancelled VBG pCO2 Cancelled VBG HCO3 Cancelled VBG Base Excess Cancelled FiO2 70% Sodium Potassium Chloride Carbon Dioxide Anion Gap BUN Creatinine Est GFR ( Amer) Glucose Lactic Acid Calcium Total Bilirubin AST Alkaline Phosphatase Total Protein Albumin Triglycerides Cholesterol LDL Cholesterol Direct VLDL Cholesterol HDL Cholesterol Amylase Lipase Urine Color Urine Appearance Urine pH Ur Specific [place] Urine Protein Urine Glucose (UA) Urine Ketones Urine Blood Urine RBC (Auto) 12/23/19 12/23/19 12/23/19 20:20 20:20 22:02 WBC RBC Hgb Hct MCV MCH MCHC RDW Plt Count Seg Neutrophils % Carbonic Acid HCO3/H2CO3 Ratio ABG pH ABG pCO2 ABG pO2 ABG HCO3 ABG O2 Saturation ABG Base Excess VBG pH VBG pCO2 VBG HCO3 VBG Base Excess FiO2 Sodium 141.2 Potassium 4.5 Chloride 103 Carbon Dioxide 32 H Anion Gap 6 BUN 33 H Creatinine 0.78 Est GFR ( Amer) > 60 Glucose 265 H Lactic Acid 1.5 Calcium 9.6 Total Bilirubin 0.7 AST 23 Alkaline Phosphatase 57 Total Protein 6.5 Albumin 3.4 L Triglycerides Cholesterol LDL Cholesterol Direct VLDL Cholesterol HDL Cholesterol Amylase Lipase Urine Color YELLOW Urine Appearance TURBID Urine pH 5.0 Ur Specific [place] 1.020 Urine Protein 30 H Urine Glucose (UA) 150 H Urine Ketones TRACE H Urine Blood SMALL H Urine RBC (Auto) 86 12/23/19 12/24/19 12/24/19 22:58 03:55 03:55 WBC 18.7 H RBC 5.68 H Hgb 12.9 Hct 41.5 MCV 73 L MCH 22.7 L MCHC 31.0 L RDW 16.4 H Plt Count 166 Seg Neutrophils % Carbonic Acid HCO3/H2CO3 Ratio ABG pH ABG pCO2 ABG pO2 ABG HCO3 ABG O2 Saturation ABG Base Excess VBG pH VBG pCO2 VBG HCO3 VBG Base Excess FiO2 Sodium Potassium Chloride Carbon Dioxide Anion Gap BUN Creatinine Est GFR ( Amer) Glucose Lactic Acid 2.1 2.7 H Calcium Total Bilirubin AST Alkaline Phosphatase Total Protein Albumin Triglycerides Cholesterol LDL Cholesterol Direct VLDL Cholesterol HDL Cholesterol Amylase Lipase Urine Color Urine Appearance Urine pH Ur Specific [place] Urine Protein Urine Glucose (UA) Urine Ketones Urine Blood Urine RBC (Auto) 12/24/19 03:55 WBC RBC Hgb Hct MCV MCH MCHC RDW Plt Count Seg Neutrophils % Carbonic Acid HCO3/H2CO3 Ratio ABG pH ABG pCO2 ABG pO2 ABG HCO3 ABG O2 Saturation ABG Base Excess VBG pH VBG pCO2 VBG HCO3 VBG Base Excess FiO2 Sodium 140.9 Potassium 4.4 Chloride 107 Carbon Dioxide 26 Anion Gap 8 BUN 35 H Creatinine 0.68 Est GFR ( Amer) > 60 Glucose 221 H Lactic Acid Calcium 9.3 Total Bilirubin 0.7 AST 26 Alkaline Phosphatase 45 Total Protein 5.9 L Albumin 2.9 L Triglycerides 78 Cholesterol 109.28 LDL Cholesterol Direct 74 VLDL Cholesterol 16.0 HDL Cholesterol 27 L Amylase 115 H Lipase 32.2 Urine Color Urine Appearance Urine pH Ur Specific [place] Urine Protein Urine Glucose (UA) Urine Ketones Urine Blood Urine RBC (Auto) 12/23/19 12/24/19 20:20 03:55 Troponin I 0.087 NT-Pro-B Natriuret Pep 976 H Impressions: Head CT 12/23/19 20:22 IMPRESSION: No acute intracranial abnormality. Age-appropriate atrophy with minor small vessel ischemic change TECHNICAL DOCUMENTATION: Quality ID # 436: Final reports with documentation of one or more dose reduction techniques (e.g., Automated exposure control, adjustment of the mA and/or kV according to patient size, use of iterative reconstruction technique) copyright 2010 [employer]- All Rights Reserved Chest X-Ray 12/24/19 00:00 IMPRESSION: Worsening interstitial and airspace opacities bilaterally. Enteric tube tip extends into the stomach. Slight retraction of the endotracheal tube as above copyright 2010 [employer]- All Rights Reserved EKG: NSR R axis All labs, radiographs, diagnostic studies and EKGs were personally reviewed: Yes In addition, reports of radiographic and diagnostic studies were read: Yes Assessment and Plan - Diagnosis (1) Cardiac arrest Is this a current diagnosis for this admission?: Yes Plan: It is doubtful she actually had an arrest. She has recovered too soon. POCUS showed a very collapsed internal jugular. She needs volume. (2) Encephalopathy acute Is this a current diagnosis for this admission?: Yes Plan: She has been on versed which may last some time. Now on precedex and hope to wean when more awake. (3) Dehydration Is this a current diagnosis for this admission?: Yes Plan: Continue volume (4) Aspiration into lower respiratory tract Qualifiers: Encounter type: initial encounter Qualified Code(s): T17.800A - Unspecified foreign body in other parts of respiratory tract causing asphyxiation, initial encounter Is this a current diagnosis for this admission?: Yes Plan: This is presumed depending on her presentation. No antibiotics unless there is a positive culture. Plan Summary: Allow to wake up and work towards extubation. Critical Time Critical Time (minutes): 35 Level of Care: ICU Anticipated discharge: Home Within: Other -: 1. The care of a critical patient is a dynamic process. This note is a chemical sales representative synopsis but static in nature. The timeframe for treatments given in order is not necessarily the actual time these treatments may have been done. 2. This patient requires critical care secondary to ongoing requirements for therapy not offered or safe outside the critical care environment. Transfer to a lower level of care will result in altered life or limb morbidity and mortality. 3. Multidisciplinary rounds completed. 4. ABCDE bundle addressed.
[2019-12-24] MEDS ORDERED: NORMAL SALINE 1000 ML 1,000 ML IV PRN ×2 (11:44→11:45)
[2019-12-24] MEDS: RINGERS SOLUTION,LACTATED 1,000 ML IV PRN ×3 (11:55→22:33)
--- NOTE | 2019-12-24 12:56 | CDI QUERY ---
CDI Query CDI Review: Dear Provider Please specify and document in progress notes and D/C summary if you agree with the following clinical findings: ACUTE RESPIRATORY FAILURE? POSSIBLE ASPIRATION PNEUMONITIS? OTHER? vent, respiratory failure noted in headline, aspiration / asphyxiation
--- NOTE | 2019-12-24 14:26 | Progress Note ---
Provider Note Provider Note: CDI query: While this can only be assumed, her CXR has the appearance of aspiration due to the CPR and unresponsivenes on presentation. She has not had any documented hypoxia or hypercarbia.
[2019-12-24 16:29] LABS: ANION GAP 7 (5-19); BLOOD UREA NITROGEN 35 mg/dL (7-20); CALCIUM 8.6 mg/dL (8.4-10.2); CARBON DIOXIDE 22 mmol/L (22-30); CHLORIDE 111 mmol/L (98-107); GLUCOSE 153 mg/dL (75-110); POTASSIUM 3.9 mmol/L (3.6-5.0)
[2019-12-24] MEDS ORDERED: DEXTROSE 50%-WATER 25 GM/50 ML DISP.SYRIN IV PRN (18:28)
[2019-12-24] MEDS ORDERED: GLUCAGON,HUMAN RECOMB 1 MG INJ IM PRN (18:28)
[2019-12-24] MEDS ORDERED: DEXTROSE 40% GEL 15 GM TUBE PO PRN ×2 (18:28)
[2019-12-24] MEDS: INSULIN REG, HUMAN 100 UNIT/ML 3 ML VIAL (PYX) SUBCUT SCH (18:56)
[2019-12-24] MEDS ORDERED: PIPERACILLIN/TAZOBACTAM 3.375 GM VIAL IV ONE (21:04)
[2019-12-24] MEDS ORDERED: VANCOMYCIN HCL 0 MG in DEXTROSE 5%-WATER 250 ML IV NR (21:15)
[2019-12-24] MEDS ORDERED: VANCOMYCIN HCL 1,250 MG in DEXTROSE 5%-WATER 250 ML IV ONE (22:30)
[2019-12-24] MEDS: PIPERACILLIN SODIUM/TAZOBACTAM 3.375 GM in NORMAL SALINE 100 ML IV SCH (22:34)
--- NOTE | 2019-12-24 23:58 | RADIOLOGY REPORT (SQ) ---
AP Portable chest: 12/24/2019 10:56 PM CDT History: 84-year old patient with respiratory failure. Comparison: Chest radiograph performed 12/24/2019. Findings: The cardiomediastinal silhouette is normal in size. No pneumothorax is seen. There are increasing bibasilar airspace opacities with small bilateral effusions, right greater than left. There is evidence of remote left-sided rib fractures. The nasogastric tube traverses below the left hemidiaphragm. The side port projects at the stomach. The tip is not seen. An endotracheal tube tip projects approximately 2.0 cm above the zora. Atherosclerotic calcifications are seen at the aortic arch. Impression: There are increasing bibasilar space opacities with small bilateral effusions, right greater than left.
[2019-12-25] MEDS: INSULIN REG, HUMAN 100 UNIT/ML 3 ML VIAL (PYX) SUBCUT SCH ×4 (00:24→17:29)
[2019-12-25] MEDS: PIPERACILLIN SODIUM/TAZOBACTAM 3.375 GM in NORMAL SALINE 100 ML IV SCH ×4 (03:25→21:40)
[2019-12-25] MEDS: RINGERS SOLUTION,LACTATED 1,000 ML IV PRN ×3 (03:25→13:30)
[2019-12-25 04:59] LABS: ABSOLUTE EOSINOPHILS # (AUTO) 0.1 10^3/uL (0.0-0.6); ABSOLUTE LYMPHOCYTES (AUTO) 0.9 10^3/uL (0.5-4.7); ABSOLUTE MONOCYTES (AUTO) 0.8 10^3/uL (0.1-1.4); ABSOLUTE NEUT (AUTO) 12.5 10^3/uL (1.7-8.2); BASOPHILS % (AUTO) 0.2 % (0-2); EOSINOPHILS % (AUTO) 0.8 % (0-6); HEMATOCRIT 36.3 % (36.0-47.0); HEMOGLOBIN 11.5 g/dL (12.0-15.5); LYMPHOCYTES % (AUTO) 6.1 % (13-45); MEAN CORPUSCULAR HEMOGLOBIN 22.5 pg (27.0-33.4); MEAN CORPUSCULAR HGB CONC 31.6 g/dL (32.0-36.0); MEAN CORPUSCULAR VOLUME 71 fl (80-97); MONOCYTES % (AUTO) 5.5 % (3-13); PLATELET COUNT 162 10^3/uL (150-450); SEGMENTED NEUTROPHILS % (AUTO) 87.4 % (42-78); TOTAL CELLS COUNTED % (AUTO) 100 %; WHITE BLOOD COUNT 14.3 10^3/uL (4.0-10.5)
[2019-12-25 05:15] LABS: ANION GAP 7 (5-19); BLOOD UREA NITROGEN 37 mg/dL (7-20); CALCIUM 8.4 mg/dL (8.4-10.2); CARBON DIOXIDE 22 mmol/L (22-30); CHLORIDE 109 mmol/L (98-107); GLUCOSE 135 mg/dL (75-110); POTASSIUM 3.7 mmol/L (3.6-5.0)
[2019-12-25] MEDS: HEPARIN SOD (PORCINE) 5,000 UNIT/ML 1 ML VIAL SUBCUT SCH ×3 (05:40→21:55)
[2019-12-25] MEDS ORDERED: MORPHINE SULFATE 10 MG/ML INJ IV PRN (08:12)
[2019-12-25] MEDS ORDERED: MORPHINE SULFATE 10 MG/ML INJ ONE (08:15)
--- NOTE | 2019-12-25 08:20 | PDOC CRITICAL CARE PROG REPORT ---
General Date:: 12/25/19 ICU Day:: 2 Ventilator Day:: 2 Hospital Day:: 2 Resuscitation Status: Full Code Events in the past 12 to 24 Hours:: Awakened, beginning to make urine. Review of systems relevant to events:: Neurological. Renal. Reason for ICU Addmission:: Status post cardiac arrest, respiratory failure. Intubated - Medications: Medications reviewed and adjusted accordingly: Yes Vasopressors:: None Sedation:: Precedex. Physical Exam Vital Signs: Temp Pulse Resp BP Pulse Ox 98.4 F 95 16 111/68 99 12/24/19 16:00 12/24/19 20:00 12/25/19 06:00 12/25/19 05:42 12/25/19 06:00 Intake & Output 12/24/19 12/25/19 12/26/19 06:59 06:59 06:59 Intake Total 1072 5174 Output Total 77 184 20 Balance 995 4990 -20 Weight 70.4 kg 75.1 kg Weight/Height Weight 75.1 kg Height 5 ft 6 in General appearance: PRESENT: no acute distress, cooperative, thin Head exam: PRESENT: atraumatic, normocephalic Eye exam: PRESENT: conjunctiva pink, EOMI, PERRLA. ABSENT: scleral icterus Ear exam: PRESENT: normal external ear exam Mouth exam: PRESENT: moist, tongue midline Respiratory exam: PRESENT: clear to auscultation pato. ABSENT: rales, rhonchi, wheezes Cardiovascular exam: PRESENT: RRR. ABSENT: diastolic murmur, rubs, systolic murmur GI/Abdominal exam: PRESENT: normal bowel sounds, soft. ABSENT: distended, guarding, mass, organolmegaly, rebound, tenderness Rectal exam: PRESENT: deferred Gentrourinary exam: PRESENT: indwelling catheter Extremities exam: PRESENT: full ROM. ABSENT: calf tenderness, clubbing, pedal edema Musculoskeletal exam: PRESENT: normal inspection Neurological exam: PRESENT: awake, CN II-XII grossly intact Skin exam: PRESENT: dry, intact, warm. ABSENT: cyanosis, rash Tubes/Lines: PRESENT: Endotracheal Tube, Nasogastic Tube Laboratory/Radiographs Laboratory Results: 12/25/19 04:07 12/25/19 04:07 12/24/19 12/24/19 12/25/19 15:59 19:14 04:07 WBC 14.3 H RBC 5.10 Hgb 11.5 L Hct 36.3 MCV 71 L MCH 22.5 L MCHC 31.6 L RDW 16.0 H Plt Count 162 Seg Neutrophils % 87.4 H Sodium 140.3 Potassium 3.9 Chloride 111 H Carbon Dioxide 22 Anion Gap 7 BUN 35 H Creatinine 0.77 Est GFR ( Amer) > 60 Glucose 153 H Lactic Acid 2.2 H Calcium 8.6 Albumin 12/25/19 12/25/19 04:07 04:07 WBC RBC Hgb Hct MCV MCH MCHC RDW Plt Count Seg Neutrophils % Sodium 138.4 Potassium 3.7 Chloride 109 H Carbon Dioxide 22 Anion Gap 7 BUN 37 H Creatinine 0.85 Est GFR ( Amer) > 60 Glucose 135 H Lactic Acid Calcium 8.4 Albumin 2.3 L 12/23/19 12/24/19 20:20 03:55 Troponin I 0.087 NT-Pro-B Natriuret Pep 976 H Impressions: Head CT 12/23/19 20:22 IMPRESSION: No acute intracranial abnormality. Age-appropriate atrophy with minor small vessel ischemic change TECHNICAL DOCUMENTATION: Quality ID # [id number]: Final reports with documentation of one or more dose reduction techniques (e.g., Automated exposure control, adjustment of the mA and/or kV according to patient size, use of iterative reconstruction technique) copyright 2011 [employer]- All Rights Reserved All labs, radiographs, diagnostic studies and EKGs were personally reviewed: Yes In addition, reports of radiographic and diagnostic studies were read: Yes Assessment and Plan - Diagnosis (1) Cardiac arrest Is this a current diagnosis for this admission?: Yes Plan: Again I do not believe this was a full arrest. Likely low BP and weak pulse secondary to dehydration given her fast recovery at her age. (2) Encephalopathy acute Is this a current diagnosis for this admission?: Yes Plan: Seems to benearly resolved. (3) Dehydration Is this a current diagnosis for this admission?: Yes Plan: Improving. Continue IVF. Kidney function preserved. (4) Aspiration into lower respiratory tract Qualifiers: Encounter type: initial encounter Qualified Code(s): T17.800A - Unspecified foreign body in other parts of respiratory tract causing asphyxiation, initial encounter Is this a current diagnosis for this admission?: Yes Plan: There does not seem to be much sequelae. Calista like to get her extubated today. Plan Summary: Proceed towrd extubation today. If not able, start tube feeds. Critical Time Critical Time (minutes): 35 Level of Care: ICU Anticipated discharge: Home with Homehealth Within: Other -: 1. The care of a critical patient is a dynamic process. This note is a payable representative synopsis but static in nature. The timeframe for treatments given in order is not necessarily the actual time these treatments may have been done. 2. This patient requires critical care secondary to ongoing requirements for therapy not offered or safe outside the critical care environment. Transfer to a lower level of care will result in altered life or limb morbidity and mortality. 3. Multidisciplinary rounds completed. 4. ABCDE bundle addressed.
[2019-12-25] MEDS ORDERED: VANCOMYCIN HCL 750 MG in DEXTROSE 5%-WATER 250 ML IV SCH (10:00)
[2019-12-25] MEDS: LINEZOLID 600 MG/300 ML RTUPB IV SCH ×2 (10:13→22:47)
[2019-12-25] MEDS: FAMOTIDINE INJ/PF 20 MG/2 ML SDV IV SCH ×2 (10:17→21:55)
[2019-12-25] MEDS ORDERED: FUROSEMIDE INJ/PF 40 MG/4 ML SDV IV ONE (14:30)
[2019-12-25] MEDS ORDERED: ALBUMIN HUMAN 500 ML IV ONE ×2 (21:30→21:38)
[2019-12-26] MEDS: INSULIN REG, HUMAN 100 UNIT/ML 3 ML VIAL (PYX) SUBCUT SCH ×4 (00:33→19:01)
[2019-12-26] MEDS: PIPERACILLIN SODIUM/TAZOBACTAM 3.375 GM in NORMAL SALINE 100 ML IV SCH ×4 (02:45→21:28)
[2019-12-26] MEDS ORDERED: RINGERS SOLUTION,LACTATED 1,000 ML IV ONE (03:00)
[2019-12-26] MEDS ORDERED: NOREPINEPHRINE BITARTRATE INJ/PF 4 MG/4 ML SDV IV ONE (03:49)
[2019-12-26 05:58] LABS: HEMATOCRIT 33.4 % (36.0-47.0); HEMOGLOBIN 10.5 g/dL (12.0-15.5); MEAN CORPUSCULAR HEMOGLOBIN 22.9 pg (27.0-33.4); MEAN CORPUSCULAR HGB CONC 31.5 g/dL (32.0-36.0); MEAN CORPUSCULAR VOLUME 73 fl (80-97); PLATELET COUNT 157 10^3/uL (150-450); RED BLOOD COUNT 4.59 10^6/uL (3.72-5.28); RED CELL DISTRIBUTION WIDTH 16.7 % (11.5-14.0); WHITE BLOOD COUNT 15.4 10^3/uL (4.0-10.5)
[2019-12-26 06:07] LABS: INTERNATIONAL RATION (INR) 1.54; PROTHROMBIN TIME 18.6 SEC (11.4-15.4)
[2019-12-26 06:08] LABS: PARTIAL THROMBOPLASTIN TIME 44.5 SEC (23.5-35.8)
[2019-12-26 06:10] LABS: D-DIMER 2.71 ug/mL (0.00-0.50)
--- NOTE | 2019-12-26 06:10 | RADIOLOGY REPORT (SQ) ---
EXAM DESCRIPTION: XR CHEST 1 VIEW COMPLETED DATE/TME: 12/26/2019 00:00 CLINICAL HISTORY: 84 years, Female, line placement and ETT placement COMPARISON: 12/24/2019 chest NUMBER OF VIEWS: 1 TECHNIQUE: Portable chest LIMITATIONS: None. FINDINGS: Heart size is normal. Endotracheal and enteric tubes are in place. Central venous catheter with the tip in the SVC. No pneumothorax. Bibasilar airspace opacities. IMPRESSION: Tip of the central line in the SVC. No pneumothorax. Other findings stable copyright 2010 [employer]- All Rights Reserved
--- NOTE | 2019-12-26 06:23 | Progress Note ---
Provider Note Provider Note: Patient had become increasingly hypotensive requiring vasoactive medications. After obtaining consent, a right IJ triple-lumen catheter was inserted. (Please see procedure note). During procedure, patient seems to have aspirated and became acutely hypoxemic. This event was immediately followed by a cardiac arrest. Chest compressions were started immediately and patient received 3 rounds of CPR including epinephrine. She had return of spontaneous circulation and has had a strong pulse and rhythm since. Her blood pressure continues to be supported by Levophed. During cardiac arrest, ET tube was placed (please see procedure note). Family was notified and an extensive discussion was held regarding her condition and the events that led up to her cardiac arrest.
[2019-12-26 06:31] LABS: CREATINE KINASE MB 5.98 ng/mL (<4.55); TROPONIN I 0.065 ng/mL
[2019-12-26 06:34] LABS: ABSOLUTE LYMPHOCYTES# (MANUAL) 1.2 10^3/uL (0.5-4.7); ABSOLUTE MONOCYTES # (MANUAL) 0.2 10^3/uL (0.1-1.4); BAND NEUTROPHILS % (MANUAL) 5 % (3-5); BASOPHILS % (MANUAL) 0 % (0-2); EOSINOPHILS % (MANUAL) 1 % (0-6); LYMPHOCYTES % (MANUAL) 8 % (13-45); MONOCYTES % (MANUAL) 1 % (3-13); SEGMENTED NEUTROPHILS % (MAN) 85 % (42-78); TOTAL CELLS COUNTED 100
--- NOTE | 2019-12-26 06:34 | Operative Report ---
Bedside Procedure - History of Present Illness History of Present Illness: Procedure: Central line placement Indication: Vasoactive medications, IV fluids, blood draws. Procedure suction drum drier operator: RUBIO Burton Attending physician: Dr. Webber Consent: Consent was obtained from patient's daughter prior to the procedure. Indications, risks, and benefits were explained and all questions were addressed. Procedure summary: The [facility] central line insertion practice form was completed by RN. A timeout was performed. My hands were washed immediately prior to the procedure. I wore surgical cap, mask with protective eyewear, full gown and sterile gloves throughout the procedure. The patient was placed in supine, flat position. Right chest region and neck were prepped using chlorhexidine scrub and draped in sterile fashion using a full drape. Sterile probe cover was placed on ultrasound probe. The medial and lateral heads of the sternocleidomastoid muscle were identified as was the carotid pulse. The internal jugular vein was identified using ultrasound. Anesthesia was achieved over the vein using 5 cc of 1% lidocaine. Using real-time out of plane guidance, the introducer needle was inserted into the internal jugular vein under direct ultrasound visualization. Venous blood was withdrawn. The syringe was removed and a guidewire was advanced into the introducer needle. The guidewire was visualized in the internal jugular vein by ultrasound. A small incision was made at the skin surface with a scalpel and the introducer needle was exchanged for a dilator over the guidewire. After appropriate dilation was obtained, the dilator was exchanged over a wire for a 7 Mongolian, 20 cm central venous catheter. The wire was removed and the catheter was sutured in place at 15 cm. All ports flushed easily. Immediately following placement, prior to suturing, patient seemed to have aspirated which immediately preceded a cardiac arrest. Patient received 3 rounds of CPR before returning to spontaneous circulation. Total time of cardiac arrest was 30 minutes. Following cardiac arrest, patient was placed on a Levophed drip. Line placement was confirmed by chest x-ray. Indication for Procedure: Severe hypotension Provider: MARIAJOSE LAM - Central Line Right Internal jugular Consent obtained: Yes Central line pre-insertion: Sterile PPE donned, Chloraprep applied, Sterile drapes applied Central line lumen type: Triple Anesthetic type: 1% Lidocaine mL's of anesthesia: 4 Ultrasound guided: Yes CM at insertion site: 15 Line secured with sutures: Yes Central line post-insertion: Blood return from lumens, Biopatch applied, Sutured, Sterile dressing applied, Position confirmed w/ CXR Number of attempts: 1 Complications: Yes - Please see note section Notes: 12/26/19 06:25 Directly following placement of central line, patient seems to have aspirated which immediately preceded a cardiac arrest. Immediate CPR was performed and after 3 rounds of chest compressions and intubation, there was return of spontaneous circulation. Central line was sutured in place post code
[2019-12-26 06:35] LABS: ANISOCYTOSIS 1+; HYPOCHROMASIA SLIGHT; POIKILOCYTOSIS SLIGHT; TOXIC GRANULATION SLIGHT
[2019-12-26 06:36] LABS: BURR CELLS 3+; OVALOCYTES SLIGHT; PLATELET COMMENT ADEQUATE; SCHISTOCYTES SLIGHT; TEAR DROP CELLS SLIGHT
--- NOTE | 2019-12-26 06:37 | Operative Report ---
Bedside Procedure - History of Present Illness History of Present Illness: Indication: Respiratory Failure Procedure shirt folding machine operator: RUBIO Burton Attending physician: Dr. Webber Consent: The procedure was performed emergently and the permission was implied because of the emergent nature. Procedure summary: A timeout was performed. My hands were washed immediately prior to the procedure. I were surgical cap, mask with protective eyewear, gown and gloves throughout the procedure. The patient was placed on a equipment monitor phototypesetting including continuous pulse oximetry. Rapid sequence intubation was conducted. Using a MAC 4 glide scope blade and a size 7.5 endotracheal tube with stylette, the patient was intubated on the third attempt. The stylette was removed and the cuff balloon was inflated. Appropriate endotracheal tube position was confirmed by direct visualization of vocal cord passage, CO2 colorimetric indicator and symmetric breath sounds. The tube was secured at 25 centimeters at the lips. Post intubation chest x-ray showed ET tube at 1 centimeter above the zora. ET tube was then withdrawn 2 cm and is now at 23 cm at the lip. Indication for Procedure: Respiratory arrest Provider: MARIAJOSE LAM
[2019-12-26] MEDS: HEPARIN SOD (PORCINE) 5,000 UNIT/ML 1 ML VIAL SUBCUT SCH ×3 (07:03→21:30)
--- NOTE | 2019-12-26 07:03 | Operative Report ---
Bedside Procedure - History of Present Illness History of Present Illness: Indication: Blood pressure monitoring Procedure dress operator: Amor Allen Attending physician: Dr. Webber Consent: Sent was obtained from patient's daughter prior to the procedure. Indications, risks, and benefits were explained at length. Procedure summary: A timeout was performed. My hands were washed immediately prior to the procedure. I were surgical cap, mask with protective eyewear, sterile gown and sterile gloves throughout the procedure. After an Justin test was performed to ensure adequate perfusion and collateral circulation, the left wrist was prepped using chlorhexidine scrub and draped in sterile fashion. A radial pulse was identified and the wrist was positioned in the optimal position for radial cannulation. Anesthesia was achieved using 1% lidocaine. Using the radial arterial line kit, a needle was inserted into the radial artery. Arterial blood was seen to pulsate in the flash chamber. The internal guidewire was advanced easily into the radial artery. The catheter was then advanced over the wire and the needle and wire were withdrawn. The catheter was sutured in place. A sterile OpSite was placed over the catheter at the insertion site. The patient tolerated the procedure without any hemodynamic compromise. At the time of procedure completion, the catheter was connected to the equipment monitor phototypesetting and calibrated. Appropriate waveform and blood pressure tracing was observed. Estimated blood loss is 5 cc. Indication for Procedure: Pressure monitoring, blood draws Date: 12/26/19 Provider: AMOR ALLEN
[2019-12-26 07:18] LABS: ANION GAP 14 (5-19); BLOOD UREA NITROGEN 37 mg/dL (7-20); CALCIUM 8.4 mg/dL (8.4-10.2); CARBON DIOXIDE 18 mmol/L (22-30); CHLORIDE 106 mmol/L (98-107); GLUCOSE 203 mg/dL (75-110); POTASSIUM 3.7 mmol/L (3.6-5.0)
[2019-12-26] MEDS ORDERED: CALCIUM GLUCONATE 1000 MG/10 ML INJ IV ONE ×3 (07:19→09:54)
[2019-12-26] MEDS ORDERED: DEXTROSE 5%-WATER 250 ML with NOREPINEPHRINE BITARTRATE 4 MG IV PRN ×2 (07:31)
[2019-12-26 07:44] LABS: ARTERIAL BLOOD BASE EXCESS -6.8 mmol/L; ARTERIAL BLOOD H2CO3 1.05 mmol/L (1.05-1.35); ARTERIAL BLOOD HCO3 18.3 mmol/L (20-24); ARTERIAL BLOOD O2 SATURATION 99.6 % (94-98); ARTERIAL BLOOD PH 7.34 (7.35-7.45); ARTERIAL BLOOD TOTAL CO2 19.4 mmol/L (21-25)
[2019-12-26 07:45] LABS: ARTERIAL BLOOD FIO2 70%
--- NOTE | 2019-12-26 08:04 | PDOC CRITICAL CARE PROG REPORT ---
General Date:: 12/26/19 ICU Day:: 2 Ventilator Day:: 2 Hospital Day:: 2 Resuscitation Status: Full Code Events in the past 12 to 24 Hours:: Aspiration and cardiac arrest last night. Review of systems relevant to events:: CV and neurological. Reason for ICU Addmission:: Status post cardiac arrest, respiratory failure. Intubated - Medications: Medications reviewed and adjusted accordingly: Yes Vasopressors:: Levophed. Sedation:: None. Physical Exam Vital Signs: Temp Pulse Resp BP Pulse Ox 95.2 F L 95 16 141/68 H 100 12/26/19 00:00 12/25/19 20:00 12/26/19 07:00 12/26/19 05:37 12/26/19 07:00 Intake & Output 12/25/19 12/26/19 12/27/19 06:59 06:59 06:59 Intake Total 5174 4030 Output Total 184 366 Balance 4990 3664 Weight 75.1 kg 79.9 kg Weight/Height Weight 79.9 kg Height 5 ft 6 in General appearance: PRESENT: no acute distress, thin Head exam: PRESENT: atraumatic, normocephalic Eye exam: PRESENT: conjunctiva pink, EOMI, PERRLA. ABSENT: scleral icterus Ear exam: PRESENT: normal external ear exam Mouth exam: PRESENT: moist, tongue midline Respiratory exam: PRESENT: chest wall tenderness, clear to auscultation pato, decreased breath sounds, symmetrical, unlabored Cardiovascular exam: PRESENT: RRR. ABSENT: diastolic murmur, rubs, systolic murmur GI/Abdominal exam: PRESENT: normal bowel sounds, soft. ABSENT: distended, guarding, mass, organolmegaly, rebound, tenderness Rectal exam: PRESENT: deferred Gentrourinary exam: PRESENT: indwelling catheter Extremities exam: PRESENT: full ROM. ABSENT: calf tenderness, clubbing, pedal edema Psychiatric exam: PRESENT: other - She is able to respond to pain especially chest wall palpation from CPR. She is not awake enough to exhibit purposeful movements. Skin exam: PRESENT: dry, intact, warm. ABSENT: cyanosis, rash Tubes/Lines: PRESENT: Endotracheal Tube, Central Line, Arterial Catheter, Nasogastic Tube Laboratory/Radiographs Laboratory Results: 12/26/19 05:00 12/26/19 05:00 12/26/19 12/26/1912/25/20 05:00 05:00 05:00 WBC 15.4 H RBC 4.59 Hgb 10.5 L Hct 33.4 L MCV 73 L MCH 22.9 L MCHC 31.5 L RDW 16.7 H Plt Count 157 Seg Neutrophils % Not Reportable Carbonic Acid HCO3/H2CO3 Ratio ABG pH ABG pCO2 ABG pO2 ABG HCO3 ABG O2 Saturation ABG Base Excess FiO2 Sodium 137.8 Potassium 3.7 Chloride 106 Carbon Dioxide 18 L Anion Gap 14 BUN 37 H Creatinine 1.04 Est GFR ( Amer) > 60 Glucose 203 H Calcium 8.4 Ionized Calcium Rizwan 1.13 L 12/26/19 07:30 WBC RBC Hgb Hct MCV MCH MCHC RDW Plt Count Seg Neutrophils % Carbonic Acid 1.05 HCO3/H2CO3 Ratio 17:1 ABG pH 7.34 L ABG pCO2 35.0 ABG pO2 273.0 H ABG HCO3 18.3 L ABG O2 Saturation 99.6 H ABG Base Excess -6.8 FiO2 70% Sodium Potassium Chloride Carbon Dioxide Anion Gap BUN Creatinine Est GFR ( Amer) Glucose Calcium Ionized Calcium Rizwan 12/23/19 12/24/19 12/26/19 20:20 03:55 05:00 Creatine Kinase 97 CK-MB (CK-2) Troponin I 0.087 NT-Pro-B Natriuret Pep 976 H 12/26/19 05:00 Creatine Kinase CK-MB (CK-2) 5.98 H Troponin I 0.065 NT-Pro-B Natriuret Pep 734 H Impressions: Head CT 12/23/19 20:22 IMPRESSION: No acute intracranial abnormality. Age-appropriate atrophy with minor small vessel ischemic change TECHNICAL DOCUMENTATION: Quality ID # 436: Final reports with documentation of one or more dose reduction techniques (e.g., Automated exposure control, adjustment of the mA and/or kV according to patient size, use of iterative reconstruction technique) copyright 2010 [employer]- All Rights Reserved Chest X-Ray 12/26/19 00:00 IMPRESSION: Tip of the central line in the SVC. No pneumothorax. Other findings stable copyright 2010 [employer]- All Rights Reserved EKG: NSR All labs, radiographs, diagnostic studies and EKGs were personally reviewed: Yes In addition, reports of radiographic and diagnostic studies were read: Yes Assessment and Plan - Diagnosis (1) Cardiac arrest Is this a current diagnosis for this admission?: Yes Plan: She has had a full cardiac arrest after an episode of aspiration. She is on levophed which we will try to wean. (2) Encephalopathy acute Is this a current diagnosis for this admission?: Yes Plan: This seems to be pronounced after her 2nd arrest. No sedation. (3) Dehydration Is this a current diagnosis for this admission?: Yes Plan: We have begun IVF after her arrest. (4) Aspiration into lower respiratory tract Qualifiers: Encounter type: initial encounter Qualified Code(s): T17.800A - Unspecified foreign body in other parts of respiratory tract causing asphyxiation, initial encounter Is this a current diagnosis for this admission?: Yes Plan: This was witnessed and apparently has happened at home on occasion. Keep on pepcid. (5) Nutrition deficiency due to insufficient food Is this a current diagnosis for this admission?: Yes Plan: We should initiate tube feeds but not on 8mcg of levophed. When we have weaned this we can begin. Plan Summary: Support CV and respiratory status and allow her to wake up. Critical Time Critical Time (minutes): 35 Level of Care: ICU Anticipated discharge: Acute Rehab Within: Other -: 1. The care of a critical patient is a dynamic process. This note is a public health representative synopsis but static in nature. The timeframe for treatments given in order is not necessarily the actual time these treatments may have been done. 2. This patient requires critical care secondary to ongoing requirements for therapy not offered or safe outside the critical care environment. Transfer to a lower level of care will result in altered life or limb morbidity and mortality. 3. Multidisciplinary rounds completed. 4. ABCDE bundle addressed.
[2019-12-26] MEDS ORDERED: HYDROMORPHONE HCL INJ/PF 2 MG/ML AMPULE ONE (09:28)
[2019-12-26] MEDS: HYDROMORPHONE HCL INJ/PF 2 MG/ML AMPULE IV PRN ×2 (09:30→12:53)
[2019-12-26] MEDS: FAMOTIDINE INJ/PF 20 MG/2 ML SDV IV SCH ×2 (09:34→21:30)
[2019-12-26] MEDS ORDERED: EPINEPHRINE INJ 1 MG/10 ML DISP.SYRIN ONE (09:37)
[2019-12-26] MEDS: LINEZOLID 600 MG/300 ML RTUPB IV SCH ×2 (09:39→21:30)
[2019-12-26] MEDS: ALBUMIN HUMAN 12.5 GM/50 ML RTUINJ IV SCH ×4 (09:57→12:53)
--- NOTE | 2019-12-26 10:51 | EKG REPORT ---
SEVERITY:- ABNORMAL ECG - SINUS RHYTHM RIGHT BUNDLE BRANCH BLOCK : Confirmed by: Jaleesa Dowell 26-Dec-2019 10:50:52
[2019-12-26] MEDS: RINGERS SOLUTION,LACTATED 1,000 ML IV PRN ×2 (13:45→21:26)
[2019-12-27] MEDS: INSULIN REG, HUMAN 100 UNIT/ML 3 ML VIAL (PYX) SUBCUT SCH ×5 (00:15→23:31)
[2019-12-27] MEDS: PIPERACILLIN SODIUM/TAZOBACTAM 3.375 GM in NORMAL SALINE 100 ML IV SCH ×4 (03:35→20:33)
[2019-12-27] MEDS: HEPARIN SOD (PORCINE) 5,000 UNIT/ML 1 ML VIAL SUBCUT SCH ×2 (05:39→20:10)
[2019-12-27 06:06] LABS: HEMATOCRIT 26.1 % (36.0-47.0); HEMOGLOBIN 8.6 g/dL (12.0-15.5); MEAN CORPUSCULAR VOLUME 70 fl (80-97); PLATELET COUNT 133 10^3/uL (150-450); RED BLOOD COUNT 3.74 10^6/uL (3.72-5.28); RED CELL DISTRIBUTION WIDTH 15.8 % (11.5-14.0); WHITE BLOOD COUNT 10.2 10^3/uL (4.0-10.5)
[2019-12-27 06:35] LABS: ANION GAP 13 (5-19); BLOOD UREA NITROGEN 38 mg/dL (7-20); CALCIUM 8.5 mg/dL (8.4-10.2); CARBON DIOXIDE 17 mmol/L (22-30); CHLORIDE 106 mmol/L (98-107); GLUCOSE 128 mg/dL (75-110); POTASSIUM 3.4 mmol/L (3.6-5.0)
[2019-12-27] MEDS: RINGERS SOLUTION,LACTATED 1,000 ML IV PRN ×2 (08:47→10:17)
[2019-12-27] MEDS: LINEZOLID 600 MG/300 ML RTUPB IV SCH ×2 (10:08→21:23)
[2019-12-27] MEDS: FAMOTIDINE INJ/PF 20 MG/2 ML SDV IV SCH ×2 (10:09→21:23)
[2019-12-27] MEDS ORDERED: POTASSIUM CHLORIDE 20 MEQ PACKET NG ONE (10:15)
[2019-12-27 10:22] LABS: ABSOLUTE RETICS # 0.039 10^6/uL (0.028-0.122); RETICULOCYTE COUNT (AUTO) 1.04 % (0.66-2.85)
[2019-12-27 10:29] LABS: IRON(TIBC) 15.2 ug/dL (37-170)
[2019-12-27] MEDS: LABETALOL HCL INJ 20 MG/4 ML DISP.SYRIN IV PRN ×2 (13:03→18:17)
--- NOTE | 2019-12-27 14:06 | PDOC CRITICAL CARE PROG REPORT ---
General Date:: 12/27/19 ICU Day:: 4 Ventilator Day:: 4 Hospital Day:: 4 Resuscitation Status: Full Code Events in the past 12 to 24 Hours:: Aspiration and cardiac arrest (12/23). Based on review of ER documentation, this 84 year old female nonsmoker was admitted after a witnessed cardiac arrest in the field. Family initiated CPR. ROSC estimated to have occurred after 10 min of CPR. Intubated in the field. Family reported HTN, DM, hypercholesterolemia and "bone infection". "R sided" weakness and "does not speak" at baseline, per family report. Progressive dysphagia. 12/26: remains intubated. edger tailer shows atrial fibrillation, rate controlled. Takes Xarelto at home for stroke prophylaxis. Currently on heparin for DVT prophylaxis. Trach aspirate (12/23) isolated C albicans and respiratory vivian, despite 4+ PMNs and GPC in chains on smear. Urine (12/22) isolated viridans strep and P mirabilis. Blood (12/22) isolated CONS. Currently on Zosyn/Zyvox. DVT PROPHYLAXIS: Heparin. GI PROPHYLAXIS: Famotidine. Review of systems relevant to events:: CVardiovascular, neurologic Reason for ICU Addmission:: Status post cardiac arrest, respiratory failure. Intubated - Medications: Medications reviewed and adjusted accordingly: Yes Vasopressors:: None. Sedation:: None. Physical Exam Vital Signs: Temp Pulse Resp BP Pulse Ox 99.5 F 84 16 156/55 H 100 12/27/19 08:00 12/27/19 08:00 12/27/19 08:00 12/27/19 08:00 12/27/19 08:00 Intake & Output 12/26/19 12/27/19 12/28/19 06:59 06:59 06:59 Intake Total 4034 2267 1000 Output Total 366 599 100 Balance 3668 1668 900 Weight 79.9 kg 84 kg Weight/Height Weight 84 kg Height 1.68 m General appearance: PRESENT: no acute distress, other Head exam: PRESENT: atraumatic, normocephalic Eye exam: PRESENT: conjunctiva pink, EOMI, PERRLA. ABSENT: scleral icterus Mouth exam: PRESENT: moist, tongue midline Neck exam: ABSENT: carotid bruit, JVD, lymphadenopathy, thyromegaly Respiratory exam: PRESENT: decreased breath sounds - Right base, rales - Right base, rhonchi - Right base. ABSENT: wheezes Cardiovascular exam: PRESENT: RRR - With frequent extrasystoles, +S2 - Fixed split S2. ABSENT: diastolic murmur, rubs, systolic murmur GI/Abdominal exam: PRESENT: normal bowel sounds, soft. ABSENT: distended, guarding, mass, organolmegaly, rebound, tenderness Extremities exam: PRESENT: pedal edema, +1 edema. ABSENT: calf tenderness, clubbing Musculoskeletal exam: PRESENT: normal inspection. ABSENT: deformity Neurological exam: PRESENT: altered, CN II-XII grossly intact, other - DTRs: 2+ right biceps; 1+ left biceps; 1+ right patellar; 1+ left patellar. Left Marlen nski. No response to noxious stimuli on the left. Winces/withdraws to noxious stimuli on the right. Skin exam: PRESENT: dry, intact, warm. ABSENT: cyanosis, rash Tubes/Lines: PRESENT: Endotracheal Tube, Central Line - Right IJ, Arterial Catheter, Other - Orogastric Laboratory/Radiographs Laboratory Results: 12/27/19 05:35 12/27/19 05:35 12/27/19 12/27/19 05:35 05:35 WBC 10.2 RBC 3.74 Hgb 8.6 L Hct 26.1 L MCV 70 L MCH 23.0 L MCHC 33.0 RDW 15.8 H Plt Count 133 L Sodium 136.3 L Potassium 3.4 L Chloride 106 Carbon Dioxide 17 L Anion Gap 13 BUN 38 H Creatinine 1.18 Est GFR ( Amer) 53 L Glucose 128 H Calcium 8.5 12/23/19 22:02 Castro Catheter Urine Culture - Final Viridans Streptococcus Proteus Mirabilis 12/24/19 09:25 Tracheal Aspirate Gram Stain - Final 12/24/19 09:25 Tracheal Aspirate Sputum Culture - Final C.albicans/C.dubliniensis Normal Vivian 12/23/19 20:35 Blood Blood Culture - Final Staphylococcus Epidermidis 12/23/19 12/24/19 12/26/19 20:20 03:55 05:00 Creatine Kinase 97 CK-MB (CK-2) Troponin I 0.087 NT-Pro-B Natriuret Pep 976 H 12/26/19 05:00 Creatine Kinase CK-MB (CK-2) 5.98 H Troponin I 0.065 NT-Pro-B Natriuret Pep 734 H Impressions: Head CT 12/23/19 20:22 IMPRESSION: No acute intracranial abnormality. Age-appropriate atrophy with minor small vessel ischemic change TECHNICAL DOCUMENTATION: Quality ID # 436: Final reports with documentation of one or more dose reduction techniques (e.g., Automated exposure control, adjustment of the mA and/or kV according to patient size, use of iterative reconstruction technique) copyright 2010 [employer]- All Rights Reserved Chest X-Ray 12/26/19 00:00 IMPRESSION: Tip of the central line in the SVC. No pneumothorax. Other findings stable copyright 2010 [employer]- All Rights Reserved All labs, radiographs, diagnostic studies and EKGs were personally reviewed: Yes In addition, reports of radiographic and diagnostic studies were read: Yes Assessment and Plan - Diagnosis (1) Aspiration pneumonia Qualifiers: Laterality: right Lung location: lower lobe of lung Is this a current diagnosis for this admission?: Yes Plan: On Zosyn/Zyvox. WBC 10.2. (2) Aspiration into lower respiratory tract Qualifiers: Encounter type: subsequent encounter Qualified Code(s): T17.800D - Unspecified foreign body in other parts of respiratory tract causing asphyxiation, subsequent encounter Is this a current diagnosis for this admission?: Yes Plan: This was witnessed and apparently has happened at home on occasion. Continue Zosyn/Zyvox. Continue Pepcid for GI prophylaxis. (3) Cardiac arrest Is this a current diagnosis for this admission?: Yes Plan: Hemodynamically stable. Off Levophed. She has had a full cardiac arrest after an episode of aspiration. (4) Anoxic-ischemic encephalopathy Is this a current diagnosis for this admission?: Yes Plan: No sedation. Frequent neuro checks. (5) Urinary tract infection Qualifiers: Urinary tract infection type: site unspecified Hematuria presence: without hematuria Qualified Code(s): N39.0 - Urinary tract infection, site not specified Is this a current diagnosis for this admission?: Yes Plan: Continue Zosyn/Zyvox. (6) Hypokalemia Is this a current diagnosis for this admission?: Yes Plan: Replete (7) Nutrition deficiency due to insufficient food Is this a current diagnosis for this admission?: Yes Plan: Start TF. (8) Microcytic anemia Is this a current diagnosis for this admission?: Yes Plan: Iron studies (9) Hypertension Is this a current diagnosis for this admission?: Yes Plan: Home antihypertensive regimen: Carvedilol 12.5 mg p.o. twice daily; hydralazine 25 mg p.o. every 8 hours; benazepril 40 mg p.o. daily. Start labetalol 20 mg IV every 4 hours PRN for SBP greater than 160. (10) Atrial fibrillation Qualifiers: Atrial fibrillation type: permanent Qualified Code(s): I48.21 - Permanent atrial fibrillation Is this a current diagnosis for this admission?: Yes Plan: Restart Xarelto. She will no longer need heparin for DVT prophylaxis. Critical Time Critical Time (minutes): 60 Level of Care: ICU -: 1. The care of a critical patient is a dynamic process. This note is a printing supplies sales representative synopsis but static in nature. The timeframe for treatments given in order is not necessarily the actual time these treatments may have been done. 2. This patient requires critical care secondary to ongoing requirements for therapy not offered or safe outside the critical care environment. Transfer to a lower level of care will result in altered life or limb morbidity and mortality. 3. Multidisciplinary rounds completed. 4. ABCDE bundle addressed.
--- NOTE | 2019-12-27 15:19 | RADIOLOGY REPORT (SQ) ---
EXAM DESCRIPTION: CT HEAD WITHOUT IMAGES COMPLETED DATE/TIME: 12/27/2019 3:02 pm REASON FOR STUDY: L sided weakness, new COMPARISON: 12/23/2019 TECHNIQUE: Axial images acquired through the brain without intravenous contrast. Images reviewed wi th bone, brain and subdural windows. Additional sagittal and coronal reconstructions were generated. Images stored on PACS. All CT scanners at this facility use dose modulation, iterative reconstruction, and/or weight based d osing when appropriate to reduce radiation dose to as low as reasonably achievable (ALARA). [facility]: Dose Right [facility]: CareDose [facility]: Dose Right [facility]: Teradose 4D [facility]: Smart CloudVelocity RADIATION DOSE: CT Rad equipment meets quality standard of care and radiation dose reduction techniq ues were employed. CTDIvol: 21.5 mGy. DLP: 433 mGy-cm. mGy. LIMITATIONS: None. FINDINGS: VENTRICLES: Slightly prominent. CEREBRUM: No masses. No hemorrhage. No midline shift. No evidence for acute infarction. Few scatte red areas of low density in the white matter most likely chronic small vessel ischemic changes. CEREBELLUM: No masses. No hemorrhage. No alteration of density. No evidence for acute infarction. EXTRAAXIAL SPACES: No fluid collections. No masses. ORBITS AND GLOBE: No intra- or extraconal masses. Normal contour of globe without masses. CALVARIUM: No fracture. PARANASAL SINUSES: No fluid or mucosal thickening. SOFT TISSUES: No mass or hematoma. OTHER: No other significant finding. IMPRESSION: Mild involutional changes with mild chronic microvascular ischemia. No acute intracrani al imaging findings. EVIDENCE OF ACUTE STROKE: NO. COMMENT: Quality ID # 436: Final reports with documentation of one or more dose reduction techniques (e.g., Automated exposure control, adjustment of the mA and/or kV according to patient size, use of iterative reconstruction technique) TECHNICAL DOCUMENTATION: JOB ID: [id number] 2010 [employer]- All Rights Reserved Reading location - IP/workstation name: [email or web address]
[2019-12-27] MEDS: RIVAROXABAN 10 MG TABLET NG SCH (17:20)
[2019-12-27] MEDS: BENAZEPRIL HCL 20 MG TABLET NG SCH (20:33)
[2019-12-27] MEDS ORDERED: BENAZEPRIL HCL 20 MG TABLET PO SCH (21:00)
[2019-12-27] MEDS: HYDRALAZINE HCL 25 MG TABLET NG SCH (21:23)
[2019-12-28] MEDS: LABETALOL HCL INJ 20 MG/4 ML DISP.SYRIN IV PRN (01:58)
[2019-12-28] MEDS: RINGERS SOLUTION,LACTATED 1,000 ML IV PRN ×2 (01:59→20:44)
[2019-12-28] MEDS: PIPERACILLIN SODIUM/TAZOBACTAM 3.375 GM in NORMAL SALINE 100 ML IV SCH ×4 (02:00→20:45)
[2019-12-28 04:28] LABS: ARTERIAL BLOOD BASE EXCESS -2.3 mmol/L; ARTERIAL BLOOD FIO2 21%; ARTERIAL BLOOD H2CO3 0.89 mmol/L (1.05-1.35); ARTERIAL BLOOD HCO3 20.7 mmol/L (20-24); ARTERIAL BLOOD O2 SATURATION 93.2 % (94-98); ARTERIAL BLOOD PCO2 29.5 mmHg (35-45); ARTERIAL BLOOD PH 7.47 (7.35-7.45); ARTERIAL BLOOD PO2 61.4 mmHg (80-100); ARTERIAL BLOOD TOTAL CO2 21.7 mmol/L (21-25)
[2019-12-28 04:41] LABS: ALBUMIN 2.4 g/dL (3.5-5.0); ALKALINE PHOSPHATASE 34 U/L (38-126); ANION GAP 8 (5-19); ASPARTATE AMINO TRANSFERASE 24 U/L (14-36); BILIRUBIN,DIRECT 0.2 mg/dL (0.0-0.4); BLOOD UREA NITROGEN 33 mg/dL (7-20); CALCIUM 8.3 mg/dL (8.4-10.2); CARBON DIOXIDE 22 mmol/L (22-30); CHLORIDE 106 mmol/L (98-107); GLUCOSE 135 mg/dL (75-110); PHOSPHORUS 2.6 mg/dL (2.5-4.5); POTASSIUM 3.4 mmol/L (3.6-5.0); TOTAL PROTEIN 4.8 g/dL (6.3-8.2)
[2019-12-28 04:48] LABS: PREALBUMIN 6.6 mg/dL (17.6-36.0)
[2019-12-28] MEDS: MAGNESIUM SULFATE/D5W 1 GM/100 ML RTUPB IV SCH ×4 (05:19→14:40)
[2019-12-28] MEDS: POTASSI CL 20 MEQ/50 ML RIDER 20 MEQ/50 ML RTUPB IV SCH ×2 (05:25→06:42)
[2019-12-28] MEDS: HYDRALAZINE HCL 25 MG TABLET NG SCH ×3 (05:28→21:31)
[2019-12-28] MEDS: INSULIN REG, HUMAN 100 UNIT/ML 3 ML VIAL (PYX) SUBCUT SCH ×3 (05:36→17:19)
--- NOTE | 2019-12-28 07:12 | RADIOLOGY REPORT (SQ) ---
CHEST 1 VIEW on 12/28/2019 at 6:33 AM CLINICAL INDICATION: Pneumonia COMPARISON: 12/26/2019 FINDINGS: ET tube tip is in the mid to lower thoracic trachea. Right IJ catheter tip is in the SVC. NG tube extends into the stomach and below the level of this film. Patient is slightly rotated on this exam. There is worsening left lower lung opacity consistent with worsening left pleural effusion and adjacent basilar atelectasis and/or pneumonia. There is a stable right pleural effusion and right basilar atelectasis and/or pneumonia. Vascular calcification is noted in the aorta. IMPRESSION: Worsening left pleural effusion and adjacent left basilar atelectasis and/or pneumonia. Otherwise no significant change.
[2019-12-28] MEDS ORDERED: SUCCINYLCHOLINE CHLORIDE INJ 200 MG/10 ML VIAL ONE (09:01)
[2019-12-28 09:07] LABS: ABSOLUTE EOSINOPHILS # (AUTO) 0.2 10^3/uL (0.0-0.6); ABSOLUTE MONOCYTES (AUTO) 0.8 10^3/uL (0.1-1.4); ABSOLUTE NEUT (AUTO) 7.3 10^3/uL (1.7-8.2); BASOPHILS % (AUTO) 0.1 % (0-2); EOSINOPHILS % (AUTO) 1.9 % (0-6); HEMATOCRIT 27.6 % (36.0-47.0); HEMOGLOBIN 9.1 g/dL (12.0-15.5); LYMPHOCYTES % (AUTO) 10.9 % (13-45); MEAN CORPUSCULAR HEMOGLOBIN 22.9 pg (27.0-33.4); MEAN CORPUSCULAR VOLUME 69 fl (80-97); MONOCYTES % (AUTO) 8.4 % (3-13); PLATELET COUNT 149 10^3/uL (150-450); RED BLOOD COUNT 3.98 10^6/uL (3.72-5.28); RED CELL DISTRIBUTION WIDTH 15.6 % (11.5-14.0); SEGMENTED NEUTROPHILS % (AUTO) 78.7 % (42-78); TOTAL CELLS COUNTED % (AUTO) 100 %; WHITE BLOOD COUNT 9.3 10^3/uL (4.0-10.5)
[2019-12-28] MEDS ORDERED: FUROSEMIDE INJ/PF 40 MG/4 ML SDV ONE (10:17)
[2019-12-28] MEDS: LINEZOLID 600 MG/300 ML RTUPB IV SCH ×2 (10:27→21:24)
[2019-12-28] MEDS: CARVEDILOL 6.25 MG TABLET NG SCH ×2 (10:28→21:31)
[2019-12-28] MEDS: FAMOTIDINE INJ/PF 20 MG/2 ML SDV IV SCH ×2 (10:28→21:31)
[2019-12-28] MEDS: BENAZEPRIL HCL 20 MG TABLET NG SCH (10:28)
[2019-12-28] MEDS ORDERED: FUROSEMIDE INJ/PF 40 MG/4 ML SDV IV ONE (11:00)
[2019-12-28 11:14] LABS: ANION GAP 11 (5-19); BLOOD UREA NITROGEN 31 mg/dL (7-20); CALCIUM 8.3 mg/dL (8.4-10.2); CARBON DIOXIDE 18 mmol/L (22-30); CHLORIDE 106 mmol/L (98-107); GLUCOSE 159 mg/dL (75-110); POTASSIUM 3.7 mmol/L (3.6-5.0)
[2019-12-28 12:38] LABS: ARTERIAL BLOOD BASE EXCESS -4.4 mmol/L; ARTERIAL BLOOD H2CO3 0.78 mmol/L (1.05-1.35); ARTERIAL BLOOD HCO3 18.2 mmol/L (20-24); ARTERIAL BLOOD O2 SATURATION 95.6 % (94-98); ARTERIAL BLOOD PH 7.46 (7.35-7.45); ARTERIAL BLOOD PO2 72.2 mmHg (80-100)
[2019-12-28 12:40] LABS: ARTERIAL BLOOD FIO2 21%
--- NOTE | 2019-12-28 12:41 | RADIOLOGY REPORT (SQ) ---
EXAM DESCRIPTION: VENOUS UNILATERAL UPPER IMAGES COMPLETED DATE/TIME: 12/28/2019 12:21 pm REASON FOR STUDY: Left upper extremity swelling COMPARISON: None. TECHNIQUE: Dynamic and static duke scale and color images acquired of the left arm venous system. Se lected spectral images acquired with additional compression and augmentation maneuvers. The contralat eral subclavian vein and internal jugular vein were also imaged. Images stored on PACS. LIMITATIONS: Limited exam secondary to patient inability to move arm FINDINGS: INTERNAL JUGULAR VEIN: Normal phasicity, compression, augmentation. No visualized echogeni c material on duke scale. No defects on color images. Comparison opposite side normal. SUBCLAVIAN VEIN: Normal compression, augmentation. No visualized echogenic material on duke scale. No defects on color images. AXILLARY VEIN: Normal compression, augmentation. No visualized echogenic material on duke scale. No d efects on color images. BRACHIAL VEIN: Normal compression, augmentation. No visualized echogenic material on duke scale. No d efects on color images. BASILIC VEIN: Normal compression, augmentation. No visualized echogenic material on duke scale. No de fects on color images. CEPHALIC VEIN: Normal compression, augmentation. No visualized echogenic material on duke scale. No d efects on color images. OTHER: None. CONTRALATERAL SUBCLAVIAN VEIN AND INTERNAL JUGULAR VEIN: Partially visualized central line within the right IJ. IMPRESSION: No evidence of DVT or SVT within the left arm. TECHNICAL DOCUMENTATION: JOB ID: [id number] 2010 [employer]- All Rights Reserved Reading location - IP/workstation name: [email or web address]
--- NOTE | 2019-12-28 13:14 | PDOC CRITICAL CARE PROG REPORT ---
General Date:: 12/28/19 ICU Day:: 5 Ventilator Day:: 5 Hospital Day:: 5 Resuscitation Status: Full Code Events in the past 12 to 24 Hours:: Aspiration and cardiac arrest (12/23). Based on review of ER documentation, this 84 year old female nonsmoker was admitted after a witnessed cardiac arrest in the field. Family initiated CPR. ROSC estimated to have occurred after 10 min of CPR. Intubated in the field. Family reported HTN, DM, hypercholesterolemia and "bone infection". "R sided" weakness and "does not speak" at baseline, per family report. Progressive dysphagia. 12/26: remains intubated. heel attacher wood shows atrial fibrillation, rate controlled. Takes Xarelto at home for stroke prophylaxis. Currently on heparin for DVT prophylaxis. Trach aspirate (12/23) isolated C albicans and respiratory vivian, despite 4+ PMNs and GPC in chains on smear. Urine (12/22) isolated viridans strep and P mirabilis. Blood (12/22) isolated CONS. Currently on Zosyn/Zyvox. DVT PROPHYLAXIS: Heparin. GI PROPHYLAXIS: Famotidine. 12/27: Remains intubated. FiO2 down to 21%. EEG was attempted yesterday to further evaluate for evidence of seizure/postictal state. Unable to complete study due to technical malfunction of EEG. Today, spontaneously opens eyes and looks around the room. Does not follow commands. But, no evidence of pathologic reflexes or seizure activity. Moves all 4 extremities to noxious stimuli. Restarted Xarelto. Monitor shows atrial fibrillation, rate controlled. Still hypertensive, but SBP better, now 150s. Still on Zosyn/Zyvox. DVT PROPHYLAXIS: Xarelto. GI PROPHYLAXIS: Famotidine. Review of systems relevant to events:: CVardiovascular, neurologic Reason for ICU Addmission:: Status post cardiac arrest, respiratory failure. Intubated - Medications: Medications reviewed and adjusted accordingly: Yes Vasopressors:: None Sedation:: None Physical Exam Vital Signs: Temp Pulse Resp BP Pulse Ox 98.8 F 69 7 L 160/64 H 97 12/28/19 06:00 12/27/19 20:00 12/28/19 06:00 12/27/19 18:00 12/28/19 08:04 Intake & Output 05/18/20 05/19/20 05/20/20 06:59 06:59 06:59 Intake Total 4289 5219 Output Total 591 895 Balance 1664 2069 Weight 84 kg 86.8 kg Weight/Height Weight 86.8 kg Height 1.68 m General appearance: PRESENT: no acute distress, well-developed, well-nourished Head exam: PRESENT: atraumatic, normocephalic Eye exam: PRESENT: conjunctiva pink, EOMI, PERRLA. ABSENT: scleral icterus Mouth exam: PRESENT: moist, tongue midline Neck exam: ABSENT: carotid bruit, JVD, lymphadenopathy, thyromegaly Respiratory exam: PRESENT: crackles, decreased breath sounds - Bilateral bases, rales. ABSENT: rhonchi, wheezes Cardiovascular exam: PRESENT: irregular rhythm, +S2 - Fixed split S2. ABSENT: diastolic murmur, rubs, systolic murmur Pulses: PRESENT: normal dorsalis pedis pul GI/Abdominal exam: PRESENT: normal bowel sounds, soft. ABSENT: distended, guarding, mass, organolmegaly, rebound, tenderness Extremities exam: PRESENT: full ROM, +1 edema - Left upper extremity. ABSENT: calf tenderness, clubbing, pedal edema Musculoskeletal exam: ABSENT: deformity, normal inspection - Left upper extremity swelling Neurological exam: PRESENT: alert, CN II-XII grossly intact, aphasic - Per family report. ABSENT: reflexes normal - DTRs: 2+ right biceps; 1+ left biceps; 2+ right patellar; 1+ left patellar, motor sensory deficit Psychiatric exam: ABSENT: agitated, anxious Skin exam: PRESENT: dry, intact, warm. ABSENT: cyanosis, rash Laboratory/Radiographs Laboratory Results: 12/27/19 05:35 12/28/19 04:05 12/27/19 12/27/19 12/27/19 05:35 05:35 05:35 Retic Count (auto) 1.04 Carbonic Acid HCO3/H2CO3 Ratio ABG pH ABG pCO2 ABG pO2 ABG HCO3 ABG O2 Saturation ABG Base Excess FiO2 Sodium Potassium Chloride Carbon Dioxide Anion Gap BUN Creatinine Est GFR ( Amer) Glucose Calcium Phosphorus Magnesium Iron 15.2 L TIBC 133 L % Saturation 11 Transferrin < 80.00 L Ferritin 287.00 H Total Bilirubin AST Alkaline Phosphatase Total Protein Albumin Prealbumin Vitamin B12 > 1000.0 H Folate 19.90 12/28/19 12/28/19 04:05 04:05 Retic Count (auto) Carbonic Acid 0.89 L HCO3/H2CO3 Ratio 23:1 ABG pH 7.47 H ABG pCO2 29.5 L ABG pO2 61.4 L ABG HCO3 20.7 ABG O2 Saturation 93.2 L ABG Base Excess -2.3 FiO2 21% Sodium 136.1 L Potassium 3.4 L Chloride 106 Carbon Dioxide 22 Anion Gap 8 BUN 33 H Creatinine 1.03 Est GFR ( Amer) > 60 Glucose 135 H Calcium 8.3 L Phosphorus 2.6 Magnesium 1.1 L* Iron TIBC % Saturation Transferrin Ferritin Total Bilirubin 1.0 AST 24 Alkaline Phosphatase 34 L Total Protein 4.8 L Albumin 2.4 L Prealbumin 6.6 L Vitamin B12 Folate 12/23/19 20:19 Blood Blood Culture - Final Veillonella Species No Aerobic Organisms 12/23/19 22:02 Castro Catheter Urine Culture - Final Viridans Streptococcus Proteus Mirabilis 12/23/19 12/24/19 12/26/19 20:20 03:55 05:00 Creatine Kinase 97 CK-MB (CK-2) Troponin I 0.087 NT-Pro-B Natriuret Pep 976 H 12/26/19 05:00 Creatine Kinase CK-MB (CK-2) 5.98 H Troponin I 0.065 NT-Pro-B Natriuret Pep 734 H Impressions: Head CT 12/27/19 00:00 IMPRESSION: Mild involutional changes with mild chronic microvascular ischemia. No acute intracranial imaging findings. EVIDENCE OF ACUTE STROKE: NO. Chest X-Ray 12/28/19 06:00 IMPRESSION: Worsening left pleural effusion and adjacent left basilar atelectasis and/or pneumonia. Otherwise no significant change. All labs, radiographs, diagnostic studies and EKGs were personally reviewed: Yes In addition, reports of radiographic and diagnostic studies were read: Yes Assessment and Plan - Diagnosis (1) Endotracheally intubated Is this a current diagnosis for this admission?: Yes Plan: With improvement in neurological status, anticipate liberation from mechanical ventilatory support within the next 24 hours. However, the patient is noted to be +14 kg during this hospitalization. Will check proBNP due to concerns for volume overload. May benefit from diuretic. Needs to start nutrition. (2) Hypomagnesemia Is this a current diagnosis for this admission?: Yes Plan: Replete (3) Hypokalemia Is this a current diagnosis for this admission?: Yes Plan: Replete (4) Aspiration pneumonia Qualifiers: Laterality: right Lung location: lower lobe of lung Is this a current diagnosis for this admission?: Yes Plan: On Zosyn/Zyvox. Recheck CBC. Suspect that the patient's worsening x-ray is likely reflecting volume overload. (5) Aspiration into lower respiratory tract Qualifiers: Encounter type: subsequent encounter Qualified Code(s): T17.800D - Unsp ecified foreign body in other parts of respiratory tract causing asphyxiation, subsequent encounter Is this a current diagnosis for this admission?: Yes Plan: This was witnessed and apparently has happened at home on occasion. Continue Zosyn/Zyvox. Continue Pepcid for GI prophylaxis. (6) Cardiac arrest Is this a current diagnosis for this admission?: Yes (7) Anoxic-ischemic encephalopathy Is this a current diagnosis for this admission?: Yes Plan: Improving. Frequent neuro checks. (8) Urinary tract infection Qualifiers: Urinary tract infection type: site unspecified Hematuria presence: without hematuria Qualified Code(s): N39.0 - Urinary tract infection, site not specified Is this a current diagnosis for this admission?: Yes Plan: Continue Zosyn/Zyvox. (9) Nutrition deficiency due to insufficient food Is this a current diagnosis for this admission?: Yes Plan: Start TF. (10) Microcytic anemia Is this a current diagnosis for this admission?: Yes (11) Hypertension Is this a current diagnosis for this admission?: Yes Plan: Home antihypertensive regimen: Carvedilol 12.5 mg p.o. twice daily; hydralazine 25 mg p.o. every 8 hours; benazepril 40 mg p.o. daily. Benazepril and hydralazine has been restarted in the interim. Start carvedilol 6.25 mg p.o. twice daily. (12) Atrial fibrillation Qualifiers: Atrial fibrillation type: permanent Qualified Code(s): I48.21 - Permanent atrial fibrillation Is this a current diagnosis for this admission?: Yes Plan: Continue Xarelto. Critical Time Critical Time (minutes): 90 Level of Care: ICU -: 1. The care of a critical patient is a dynamic process. This note is a district representative synopsis but static in nature. The timeframe for treatments given in order is not necessarily the actual time these treatments may have been done. 2. This patient requires critical care secondary to ongoing requirements for therapy not offered or safe outside the critical care environment. Transfer to a lower level of care will result in altered life or limb morbidity and mortality. 3. Multidisciplinary rounds completed. 4. ABCDE bundle addressed.
[2019-12-28] MEDS ORDERED: POTASSIUM CHLORIDE 20 MEQ PACKET PO ONE (13:30)
[2019-12-28] MEDS: DEXMEDETOMIDINE IN 0.9 % NACL 400 MCG/100 ML RTUPB IV PRN (14:41)
[2019-12-28] MEDS ORDERED: SUCCINYLCHOLINE CHLORIDE INJ 200 MG/10 ML VIAL IV ONE (14:45)
--- NOTE | 2019-12-28 17:16 | NEURO WORKBENCH EEG REPORT ---
EEG Report Patient: Janae Yu [facility] ID: [id number] Referring Doctor: Saskia Le DOS: 12/28/2019 Medications: Lotensin, Carvedilol, Famotidine, Apresoline, Linezolid, Piperacillin, Rivaroxaban History This is an 84 year old female with a history of peripheral vascular disease, stents, hypercholesterolemia, hypertension, cellulitis, GERD, scoliosis, type 2 diabetes, anxiety, right lower limb surgery, admitted with respiratory failure. The patient is intubated and given precedex, succinylcholine, body temperature 36.1. This EEG was requested for post-ictal state. EEG Interpretation This EEG was recorded in the comatose state. The EEG is characterized by a monotonous, disorganized background with generalized periodic discharges (GPDs) of ~2Hz frequency that have a triphasic morphology throughout the recording. There was significant myogenic artifact typically associated with active eye opening that impaired interpretation; the myogenic artifact resolved when relaxant was administered. Photic stimulation was impaired by diffuse myogenic artifact associated with active eye opening. These triphasic waves at times were sharply contoured but there were no definitive epileptiform discharges nor electrographic seizures, and the frequency of the triphasic discharges did not significantly change during the recording. The EKG showed an irregularly irregular rhythm. EEG Classification * GPDs, triphasic * EKG irregular rhythm * Myogenic artifact impaired interpretation EEG Impression This EEG is severely abnormal. GPDs may be seen in various encephalopathies including, but not limited to, anoxic, toxic/metabolic, infectious, hypothermic, and nonconvulsive status epilepticus. Consideration should be given for treatment with anti-epileptic medication. The arrhythmia on the EKG may require further investigation. INTERPRETING NEUROLOGIST: Suzette Dobson MD, FRCPC Board Certified in Neurology, with special qualification in Child Neurology, and in Clinical Neurophysiology [facility]
[2019-12-28] MEDS: RIVAROXABAN 10 MG TABLET NG SCH (17:18)
[2019-12-29] MEDS: INSULIN REG, HUMAN 100 UNIT/ML 3 ML VIAL (PYX) SUBCUT SCH ×5 (00:30→23:53)
[2019-12-29] MEDS: PIPERACILLIN SODIUM/TAZOBACTAM 3.375 GM in NORMAL SALINE 100 ML IV SCH ×4 (02:35→20:34)
[2019-12-29 05:48] LABS: ABSOLUTE EOSINOPHILS # (AUTO) 0.1 10^3/uL (0.0-0.6); ABSOLUTE MONOCYTES (AUTO) 0.7 10^3/uL (0.1-1.4); ABSOLUTE NEUT (AUTO) 6.4 10^3/uL (1.7-8.2); ARTERIAL BLOOD BASE EXCESS 0.1 mmol/L; ARTERIAL BLOOD H2CO3 0.93 mmol/L (1.05-1.35); ARTERIAL BLOOD HCO3 22.9 mmol/L (20-24); ARTERIAL BLOOD O2 SATURATION 92.8 % (94-98); ARTERIAL BLOOD PCO2 30.8 mmHg (35-45); ARTERIAL BLOOD PH 7.49 (7.35-7.45); ARTERIAL BLOOD PO2 58.8 mmHg (80-100); ARTERIAL BLOOD TOTAL CO2 23.9 mmol/L (21-25); BASOPHILS % (AUTO) 0.1 % (0-2); EOSINOPHILS % (AUTO) 0.8 % (0-6); HEMATOCRIT 26.5 % (36.0-47.0); HEMOGLOBIN 8.8 g/dL (12.0-15.5); LYMPHOCYTES % (AUTO) 12.5 % (13-45); MEAN CORPUSCULAR HEMOGLOBIN 22.9 pg (27.0-33.4); MEAN CORPUSCULAR HGB CONC 33.1 g/dL (32.0-36.0); MEAN CORPUSCULAR VOLUME 69 fl (80-97); MONOCYTES % (AUTO) 8.7 % (3-13); PLATELET COUNT 142 10^3/uL (150-450); RED BLOOD COUNT 3.84 10^6/uL (3.72-5.28); RED CELL DISTRIBUTION WIDTH 15.8 % (11.5-14.0); SEGMENTED NEUTROPHILS % (AUTO) 77.9 % (42-78); TOTAL CELLS COUNTED % (AUTO) 100 %; WHITE BLOOD COUNT 8.2 10^3/uL (4.0-10.5)
[2019-12-29 05:50] LABS: ARTERIAL BLOOD FIO2 21%
[2019-12-29 06:02] LABS: ALBUMIN 2.2 g/dL (3.5-5.0); ALKALINE PHOSPHATASE 39 U/L (38-126); ANION GAP 6 (5-19); ASPARTATE AMINO TRANSFERASE 21 U/L (14-36); BILIRUBIN,DIRECT 0.1 mg/dL (0.0-0.4); BILIRUBIN,TOTAL 0.9 mg/dL (0.2-1.3); BLOOD UREA NITROGEN 26 mg/dL (7-20); CALCIUM 8.2 mg/dL (8.4-10.2); CARBON DIOXIDE 26 mmol/L (22-30); CHLORIDE 103 mmol/L (98-107); GLUCOSE 240 mg/dL (75-110); POTASSIUM 3.3 mmol/L (3.6-5.0); TOTAL PROTEIN 4.5 g/dL (6.3-8.2)
[2019-12-29] MEDS: HYDRALAZINE HCL 25 MG TABLET NG SCH ×3 (06:15→21:17)
--- NOTE | 2019-12-29 07:12 | RADIOLOGY REPORT (SQ) ---
CHEST 1 VIEW on 12/29/2019 at 5:58 AM CLINICAL INDICATION: Intubated COMPARISON: 12/28/2019 FINDINGS: ET tube tip is in the mid thoracic trachea. NG tube extends into the stomach and below the level of this film. Right IJ catheter tip is in the SVC. Borderline cardiomegaly is noted. There are left greater than right pleural effusions. There are adjacent left greater than right lower lung opacities consistent with atelectasis and/or pneumonia. Vascular calcification is noted in the aorta. IMPRESSION: No significant change in the appearance of the chest.
[2019-12-29] MEDS: CARVEDILOL 6.25 MG TABLET NG SCH ×2 (09:18→21:18)
[2019-12-29] MEDS: FAMOTIDINE INJ/PF 20 MG/2 ML SDV IV SCH ×2 (09:18→21:21)
[2019-12-29] MEDS: BENAZEPRIL HCL 20 MG TABLET NG SCH (09:18)
[2019-12-29] MEDS: LINEZOLID 600 MG/300 ML RTUPB IV SCH ×2 (09:19→21:24)
[2019-12-29] MEDS: MAGNESIUM SULFATE/D5W 1 GM/100 ML RTUPB IV SCH ×2 (10:48→12:47)
[2019-12-29] MEDS ORDERED: POTASSIUM CHLORIDE 20 MEQ PACKET PO ONE (11:00)
[2019-12-29] MEDS: LEVETIRACETAM 500 MG/NACL-ISO 500 MG/100 ML RTUPB IV SCH ×2 (11:14→21:26)
--- NOTE | 2019-12-29 12:37 | RADIOLOGY REPORT (SQ) ---
EXAM DESCRIPTION: CHEST SINGLE VIEW IMAGES COMPLETED DATE/TIME: 12/29/2019 12:16 pm REASON FOR STUDY: pleural effusion COMPARISON: Earlier the same day. NUMBER OF VIEWS: One view. TECHNIQUE: Single frontal radiographic image of the chest acquired. LIMITATIONS: None. FINDINGS: LUNGS AND PLEURA: Stable appearance. MEDIASTINUM AND HILAR STRUCTURES: Stable heart size and mediastinal structures. HEART AND VASCULAR STRUCTURES: Stable appearance. SUPPORT DEVICES: Appropriate location without change. BONES: No acute findings. OTHER: No other significant finding. IMPRESSION: Grossly stable appearance of the chest allowing for slight differences in technique. Lai pport lines and tubes remain in satisfactory position. TECHNICAL DOCUMENTATION: JOB ID: [id number] 2010 [[employer]- All Rights Reserved Reading location - IP/workstation name: [email or web address]
[2019-12-29] MEDS ORDERED: FUROSEMIDE INJ/PF 40 MG/4 ML SDV IV ONE (16:00)
[2019-12-29] MEDS: RIVAROXABAN 10 MG TABLET NG SCH (17:40)
[2019-12-29] MEDS: RINGERS SOLUTION,LACTATED 1,000 ML IV PRN (17:40)
[2019-12-30] MEDS: DEXMEDETOMIDINE IN 0.9 % NACL 400 MCG/100 ML RTUPB IV PRN (02:02)
[2019-12-30] MEDS: PIPERACILLIN SODIUM/TAZOBACTAM 3.375 GM in NORMAL SALINE 100 ML IV SCH ×2 (02:06→09:55)
[2019-12-30 05:41] LABS: ABSOLUTE EOSINOPHILS # (AUTO) 0.1 10^3/uL (0.0-0.6); ABSOLUTE MONOCYTES (AUTO) 0.8 10^3/uL (0.1-1.4); ABSOLUTE NEUT (AUTO) 5.5 10^3/uL (1.7-8.2); BASOPHILS % (AUTO) 0.1 % (0-2); EOSINOPHILS % (AUTO) 1.3 % (0-6); HEMATOCRIT 27.3 % (36.0-47.0); HEMOGLOBIN 9.2 g/dL (12.0-15.5); MEAN CORPUSCULAR HGB CONC 33.5 g/dL (32.0-36.0); MEAN CORPUSCULAR VOLUME 68 fl (80-97); MONOCYTES % (AUTO) 10.2 % (3-13); PLATELET COUNT 153 10^3/uL (150-450); RED BLOOD COUNT 3.99 10^6/uL (3.72-5.28); RED CELL DISTRIBUTION WIDTH 15.7 % (11.5-14.0); SEGMENTED NEUTROPHILS % (AUTO) 75.4 % (42-78); TOTAL CELLS COUNTED % (AUTO) 100 %; WHITE BLOOD COUNT 7.3 10^3/uL (4.0-10.5)
[2019-12-30 06:00] LABS: ARTERIAL BLOOD BASE EXCESS 1.4 mmol/L; ARTERIAL BLOOD FIO2 21%; ARTERIAL BLOOD H2CO3 0.98 mmol/L (1.05-1.35); ARTERIAL BLOOD HCO3 24.3 mmol/L (20-24); ARTERIAL BLOOD O2 SATURATION 95.3 % (94-98); ARTERIAL BLOOD PCO2 32.5 mmHg (35-45); ARTERIAL BLOOD PH 7.49 (7.35-7.45); ARTERIAL BLOOD PO2 69.4 mmHg (80-100); ARTERIAL BLOOD TOTAL CO2 25.3 mmol/L (21-25)
[2019-12-30] MEDS: INSULIN REG, HUMAN 100 UNIT/ML 3 ML VIAL (PYX) SUBCUT SCH ×3 (06:16→17:47)
[2019-12-30] MEDS: HYDRALAZINE HCL 25 MG TABLET NG SCH ×3 (06:21→21:20)
[2019-12-30 06:25] LABS: ANION GAP 7 (5-19); BLOOD UREA NITROGEN 22 mg/dL (7-20); CARBON DIOXIDE 26 mmol/L (22-30); CHLORIDE 102 mmol/L (98-107); GLUCOSE 330 mg/dL (75-110); POTASSIUM 3.5 mmol/L (3.6-5.0)
[2019-12-30 06:32] LABS: PREALBUMIN 9.1 mg/dL (17.6-36.0)
--- NOTE | 2019-12-30 08:14 | RADIOLOGY REPORT (SQ) ---
EXAM DESCRIPTION: CHEST SINGLE VIEW IMAGES COMPLETED DATE/TIME: 12/30/2019 5:54 am REASON FOR STUDY: pulmonary edema, pneumonia COMPARISON: 12/29/2019. EXAM PARAMETERS: NUMBER OF VIEWS: One view. TECHNIQUE: Single frontal radiographic view of the chest acquired. RADIATION DOSE: NA LIMITATIONS: None. FINDINGS: LUNGS AND PLEURA: Diffuse bilateral airspace disease and pleural effusions, left greater t tejeda right. No change. MEDIASTINUM AND HILAR STRUCTURES: No masses. Contour normal. HEART AND VASCULAR STRUCTURES: Cardiomegaly. BONES: No acute findings. HARDWARE: Stable endotracheal tube, nasogastric tube, and central line. OTHER: No other significant finding. IMPRESSION: NO CHANGE IN APPEARANCE OF THE CHEST. TECHNICAL DOCUMENTATION: JOB ID: [id number] 2010 [employer]- All Rights Reserved Reading location - IP/workstation name: [email or web address]
[2019-12-30] MEDS ORDERED: NORMAL SALINE INJ/PF 0.9% 10 ML SDV IV PRN (09:43)
[2019-12-30] MEDS: LEVETIRACETAM 500 MG/NACL-ISO 500 MG/100 ML RTUPB IV SCH ×2 (09:56→21:21)
[2019-12-30] MEDS: CARVEDILOL 6.25 MG TABLET NG SCH ×2 (10:08→21:21)
[2019-12-30] MEDS: BENAZEPRIL HCL 20 MG TABLET NG SCH (10:08)
[2019-12-30] MEDS: FAMOTIDINE INJ/PF 20 MG/2 ML SDV IV SCH ×2 (10:09→21:20)
[2019-12-30] MEDS: LINEZOLID 600 MG/300 ML RTUPB IV SCH (10:12)
--- NOTE | 2019-12-30 10:51 | PDOC CRITICAL CARE PROG REPORT ---
General Date:: 12/29/19 ICU Day:: 6 Ventilator Day:: 6 Hospital Day:: 6 Resuscitation Status: Full Code Events in the past 12 to 24 Hours:: Aspiration and cardiac arrest (12/23). Based on review of ER documentation, this 84 year old female nonsmoker was admitted after a witnessed cardiac arrest in the field. Family initiated CPR. ROSC estimated to have occurred after 10 min of CPR. Intubated in the field. Family reported HTN, DM, hypercholesterolemia and "bone infection". "R sided" weakness and "does not speak" at baseline, per family report. Progressive dysphagia. 12/26: remains intubated. media monitor shows atrial fibrillation, rate controlled. Takes Xarelto at home for stroke prophylaxis. Currently on heparin for DVT prophylaxis. Trach aspirate (12/23) isolated C albicans and respiratory vivian, despite 4+ PMNs and GPC in chains on smear. Urine (12/22) isolated viridans strep and P mirabilis. Blood (12/22) isolated CONS. Currently on Zosyn/Zyvox. DVT PROPHYLAXIS: Heparin. GI PROPHYLAXIS: Famotidine. 12/27: Remains intubated. FiO2 down to 21%. EEG was attempted yesterday to further evaluate for evidence of seizure/postictal state. Unable to complete study due to technical malfunction of EEG. Today, spontaneously opens eyes and looks around the room. Does not follow commands. But, no evidence of pathologic reflexes or seizure activity. Moves all 4 extremities to noxious stimuli. Restarted Xarelto. Monitor shows atrial fibrillation, rate controlled. Still hypertensive, but SBP better, now 150s. Still on Zosyn/Zyvox. DVT PROPHYLAXIS: Xarelto. GI PROPHYLAXIS: Famotidine. 12/28: Remains intubated. FiO2 still 21%. EEG report raises the issue of a potential role for antiepileptic therapy. She is currently on Precedex for sedation. Moves all 4 extremities to noxious stimuli (right better than left). Atrial fibrillation, rate controlled. On Xarelto. She continues on Zosyn/Zyvox. Started tube feeds yesterday. Currently on Jevity 1.5 (goal 50 mL/h). DVT PROPHYLAXIS: Xarelto. GI PROPHYLAXIS: Famotidine. Review of systems relevant to events:: Cardiovascular, neurologic Reason for ICU Addmission:: Status post cardiac arrest, respiratory failure. Intubated - Medications: Medications reviewed and adjusted accordingly: Yes Sedation:: Precedex Physical Exam Vital Signs: Temp Pulse Resp BP Pulse Ox 98.4 F 78 19 133/64 H 98 12/29/19 10:00 12/29/19 10:00 12/29/19 10:12 12/29/19 10:12 12/29/19 10:12 Intake & Output 12/28/19 12/29/19 12/30/19 06:59 06:59 06:59 Intake Total 3216 2477 Output Total 895 3835 275 Balance 2321 -9418 -275 Weight 86.8 kg 87.2 kg Weight/Height Weight 87.2 kg Height 1.68 m General appearance: PRESENT: no acute distress, well-developed, well-nourished Head exam: PRESENT: atraumatic, normocephalic Eye exam: PRESENT: conjunctiva pink, EOMI, PERRLA. ABSENT: scleral icterus Neck exam: ABSENT: carotid bruit, JVD, lymphadenopathy, thyromegaly Respiratory exam: PRESENT: crackles, decreased breath sounds, rales. ABSENT: rhonchi, wheezes Cardiovascular exam: PRESENT: irregular rhythm, +S2 - Split S2. ABSENT: gallop, rubs, systolic murmur GI/Abdominal exam: PRESENT: normal bowel sounds, soft. ABSENT: distended, guarding, mass, organolmegaly, rebound, tenderness Extremities exam: PRESENT: full ROM, +1 edema. ABSENT: calf tenderness, clubbing Neurological exam: PRESENT: awake, CN II-XII grossly intact - A phasic per family report, motor sensory deficit - Moves right side better than left side. But does move all 4 extremities to noxious stimuli., other - DTRs: 2+ right biceps; 1+ left biceps; 2+ right patellar; 1+ left patellar Skin exam: PRESENT: dry, intact, warm. ABSENT: cyanosis, rash Tubes/Lines: PRESENT: Endotracheal Tube, Central Line - Right IJ, Other - Orogastric Laboratory/Radiographs Laboratory Results: 12/29/19 05:35 12/29/19 05:35 12/28/19 12/28/19 12/29/19 08:49 12:20 05:35 WBC 8.2 RBC 3.84 Hgb 8.8 L Hct 26.5 L MCV 69 L MCH 22.9 L MCHC 33.1 RDW 15.8 H Plt Count 142 L Seg Neutrophils % 77.9 Carbonic Acid 0.78 L HCO3/H2CO3 Ratio 23:1 ABG pH 7.46 H ABG pCO2 26.0 L ABG pO2 72.2 L ABG HCO3 18.2 L ABG O2 Saturation 95.6 ABG Base Excess -4.4 FiO2 21% Sodium 135.4 L Potassium 3.7 Chloride 106 Carbon Dioxide 18 L Anion Gap 11 BUN 31 H Creatinine 1.11 Est GFR ( Amer) 57 L Glucose 159 H Calcium 8.3 L Magnesium Total Bilirubin AST Alkaline Phosphatase Total Protein Albumin 12/29/19 12/29/19 05:35 05:35 WBC RBC Hgb Hct MCV MCH MCHC RDW Plt Count Seg Neutrophils % Carbonic Acid 0.93 L HCO3/H2CO3 Ratio 24:1 ABG pH 7.49 H ABG pCO2 30.8 L ABG pO2 58.8 L ABG HCO3 22.9 ABG O2 Saturation 92.8 L ABG Base Excess 0.1 FiO2 21% Sodium 134.8 L Potassium 3.3 L Chloride 103 Carbon Dioxide 26 Anion Gap 6 BUN 26 H Creatinine 0.88 Est GFR ( Amer) > 60 Glucose 240 H Calcium 8.2 L Magnesium 1.6 Total Bilirubin 0.9 AST 21 Alkaline Phosphatase 39 Total Protein 4.5 L Albumin 2.2 L 12/27/19 10:58 Tracheal Aspirate Gram Stain - Final 12/23/19 20:35 Blood Blood Culture - Final Staphylococcus Epidermidis 12/23/19 12/24/19 12/26/19 20:20 03:55 05:00 Creatine Kinase 97 CK-MB (CK-2) Troponin I 0.087 NT-Pro-B Natriuret Pep 976 H 12/26/19 12/28/19 05:00 08:49 Creatine Kinase CK-MB (CK-2) 5.98 H Troponin I 0.065 NT-Pro-B Natriuret Pep 734 H 4720 H Impressions: Head CT 12/27/19 00:00 IMPRESSION: Mild involutional changes with mild chronic microvascular ischemia. No acute intracranial imaging findings. EVIDENCE OF ACUTE STROKE: NO. Venous Doppler Study 12/28/19 00:00 IMPRESSION: No evidence of DVT or SVT within the left arm. Chest X-Ray 12/29/19 05:00 IMPRESSION: No significant change in the appearance of the chest. All labs, radiographs, diagnostic studies and EKGs were personally reviewed: Yes In addition, reports of radiographic and diagnostic studies were read: Yes Assessment and Plan - Diagnosis (1) Endotracheally intubated Is this a current diagnosis for this admission?: Yes Plan: With improvement in neurological status, anticipate liberation from mechanical ventilatory support within the next 24 hours. Repeat proBNP due to concerns for volume overload. May benefit from diuretic. On Jevity 1.5 (goal 50 mL/h). (2) Hypomagnesemia Is this a current diagnosis for this admission?: Yes Plan: Replete (3) Hypokalemia Is this a current diagnosis for this admission?: Yes Plan: Replete (4) Aspiration pneumonia Qualifiers: Laterality: right Lung location: lower lobe of lung Is this a current diagnosis for this admission?: Yes Plan: On Zosyn/Zyvox. 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 Continue Zosyn/Zyvox. Continue Pepcid for GI prophylaxis. (6) Cardiac arrest Is this a current diagnosis for this admission?: Yes (7) Anoxic-ischemic encephalopathy Is this a current diagnosis for this admission?: Yes Plan: Improving. Frequent neuro checks. Based on her abnormal EEG report, I will start the patient on Keppra. (8) Urinary tract infection Qualifiers: Urinary tract infection type: site unspecified Hematuria presence: without hematuria Qualified Code(s): N39.0 - Urinary tract infection, site not specified Is this a current diagnosis for this admission?: Yes (9) Nutrition deficiency due to insufficient food Is this a current diagnosis for this admission?: Yes Plan: On tube feeds. Currently on vital 1.5 at 20 mL/h. Advance as tolerated. Okay to change to Jevity 1.5 when the current bottle of vital 1.5 has completed. (10) Microcytic anemia Is this a current diagnosis for this admission?: Yes (11) Hypertension Is this a current diagnosis for this admission?: Yes (12) Atrial fibrillation Qualifiers: Atrial fibrillation type: permanent Qualified Code(s): I48.21 - Permanent atrial fibrillation Is this a current diagnosis for this admission?: Yes Plan: Continue Xarelto. (13) Abnormal EEG Is this a current diagnosis for this admission?: Yes Plan: Start Keppra. Critical Time Critical Time (minutes): 60 Level of Care: ICU -: 1. The care of a critical patient is a dynamic process. This note is a home office representative synopsis but static in nature. The timeframe for treatments given in order is not necessarily the actual time these treatments may have been done. 2. This patient requires critical care secondary to ongoing requirements for therapy not offered or safe outside the critical care environment. Transfer to a lower level of care will result in altered life or limb morbidity and mortal ity. 3. Multidisciplinary rounds completed. 4. ABCDE bundle addressed.
[2019-12-30] MEDS ORDERED: PIPERACILLIN SODIUM/TAZOBACTAM 4.5 GM in NORMAL SALINE 100 ML IV SCH (12:00)
[2019-12-30] MEDS: MAGNESIUM SULFATE/D5W 1 GM/100 ML RTUPB IV SCH ×2 (12:55→14:00)
[2019-12-30] MEDS: PIPERACILLIN SODIUM/TAZOBACTAM 4.5 GM in NORMAL SALINE 100 ML IV SCH ×2 (15:09→20:03)
--- NOTE | 2019-12-30 16:59 | PDOC CRITICAL CARE PROG REPORT ---
General Date:: 12/30/19 ICU Day:: 7 Ventilator Day:: 7 Hospital Day:: 7 Resuscitation Status: Full Code Events in the past 12 to 24 Hours:: Aspiration and cardiac arrest (12/23). Based on review of ER documentation, this 84 year old female nonsmoker was admitted after a witnessed cardiac arrest in the field. Family initiated CPR. ROSC estimated to have occurred after 10 min of CPR. Intubated in the field. Family reported HTN, DM, hypercholesterolemia and "bone infection". "R sided" weakness and "does not speak" at baseline, per family report. Progressive dysphagia. 12/26: remains intubated. monitoring tech shows atrial fibrillation, rate controlled. Takes Xarelto at home for stroke prophylaxis. Currently on heparin for DVT prophylaxis. Trach aspirate (12/23) isolated C albicans and respiratory vivian, despite 4+ PMNs and GPC in chains on smear. Urine (12/22) isolated viridans strep and P mirabilis. Blood (12/22) isolated CONS. Currently on Zosyn/Zyvox. DVT PROPHYLAXIS: Heparin. GI PROPHYLAXIS: Famotidine. 12/27: Remains intubated. FiO2 down to 21%. EEG was attempted yesterday to further evaluate for evidence of seizure/postictal state. Unable to complete study due to technical malfunction of EEG. Today, spontaneously opens eyes and looks around the room. Does not follow commands. But, no evidence of pathologic reflexes or seizure activity. Moves all 4 extremities to noxious stimuli. Restarted Xarelto. Monitor shows atrial fibrillation, rate controlled. Still hypertensive, but SBP better, now 150s. Still on Zosyn/Zyvox. DVT PROPHYLAXIS: Xarelto. GI PROPHYLAXIS: Famotidine. 12/28: Remains intubated. FiO2 still 21%. EEG report raises the issue of a potential role for antiepileptic therapy. She is currently on Precedex for sedation. Moves all 4 extremities to noxious stimuli (right better than left). Atrial fibrillation, rate controlled. On Xarelto. She continues on Zosyn/Zyvox. Started tube feeds yesterday. Currently on Jevity 1.5 (goal 50 mL/h). DVT PROPHYLAXIS: Xarelto. GI PROPHYLAXIS: Famotidine. 12/29: Remains intubated. FiO2 still 21%. Chest x-ray is much worse today with interval increase in left lung atelectasis, secondary to pooling of secretions. Started on Keppra yesterday. On Precedex for sedation. Easily arousable. Does not clearly follow commands but does visually track around the room. On Zosyn/Zyvox. Trach aspirate isolated Enterobacter cloacae and Karon albicans. Currently on Jevity 1.5. Blood sugars > 300. DVT PROPHYLAXIS: Xarelto. GI PROPHYLAXIS: Famotidine. Review of systems relevant to events:: Cardiovascular, neurologic, respiratory Reason for ICU Addmission:: Status post cardiac arrest, respiratory failure. Intubated - Medications: Medications reviewed and adjusted accordingly: Yes Physical Exam Vital Signs: Temp Pulse Resp BP Pulse Ox 97.9 F 78 19 137/87 H 98 12/30/19 08:00 12/30/19 10:00 12/30/19 10:00 12/30/19 10:00 12/30/19 10:00 Intake & Output 12/29/19 12/30/19 12/31/19 06:59 06:59 06:59 Intake Total 2477 2930 Output Total 3835 2520 750 Balance -1358 410 -750 Weight 87.2 kg 89.5 kg Weight/Height Weight 89.5 kg Height 1.68 m General appearance: PRESENT: no acute distress, well-developed, well-nourished Head exam: PRESENT: atraumatic, normocephalic Eye exam: PRESENT: conjunctiva pink, EOMI, PERRLA. ABSENT: scleral icterus Neck exam: ABSENT: carotid bruit, JVD, lymphadenopathy, thyromegaly Respiratory exam: PRESENT: crackles, decreased breath sounds - No breath sounds in the left base., rales. ABSENT: rhonchi, wheezes Cardiovascular exam: PRESENT: irregular rhythm. ABSENT: diastolic murmur, rubs, systolic murmur Pulses: PRESENT: normal dorsalis pedis pul GI/Abdominal exam: PRESENT: normal bowel sounds, soft. ABSENT: distended, guarding, mass, organolmegaly, rebound, tenderness Extremities exam: PRESENT: full ROM. ABSENT: calf tenderness, clubbing, pedal edema Neurological exam: PRESENT: awake, CN II-XII grossly intact, motor sensory deficit, other - Does not follow commands. Aphasic at baseline. Psychiatric exam: ABSENT: agitated, anxious Skin exam: PRESENT: dry, intact, warm. ABSENT: cyanosis, rash Tubes/Lines: PRESENT: Endotracheal Tube, Central Line - Right IJ, Other - Or ogastric Laboratory/Radiographs Laboratory Results: 12/30/19 05:20 12/30/19 05:20 12/30/19 12/30/19 12/30/19 05:20 05:20 05:20 WBC 7.3 RBC 3.99 Hgb 9.2 L Hct 27.3 L MCV 68 L MCH 23.0 L MCHC 33.5 RDW 15.7 H Plt Count 153 Seg Neutrophils % 75.4 Carbonic Acid 0.98 L HCO3/H2CO3 Ratio 24:1 ABG pH 7.49 H ABG pCO2 32.5 L ABG pO2 69.4 L ABG HCO3 24.3 H ABG O2 Saturation 95.3 ABG Base Excess 1.4 FiO2 21% Sodium 134.9 L Potassium 3.5 L Chloride 102 Carbon Dioxide 26 Anion Gap 7 BUN 22 H Creatinine 0.83 Est GFR ( Amer) > 60 Glucose 330 H Calcium 8.0 L Magnesium 1.8 Prealbumin 9.1 L 12/27/19 10:58 Tracheal Aspirate Gram Stain - Final 12/27/19 10:58 Tracheal Aspirate Sputum Culture - Final Enterobacter Cloacae C.albicans/C.dubliniensis Normal Vivian Absent 12/23/19 12/24/19 12/26/19 20:20 03:55 05:00 Creatine Kinase 97 CK-MB (CK-2) Troponin I 0.087 NT-Pro-B Natriuret Pep 976 H 12/26/19 12/28/19 12/29/19 05:00 08:49 05:35 Creatine Kinase CK-MB (CK-2) 5.98 H Troponin I 0.065 NT-Pro-B Natriuret Pep 734 H 4720 H 4460 H 12/30/19 05:20 Creatine Kinase CK-MB (CK-2) Troponin I NT-Pro-B Natriuret Pep 3450 H Impressions: Head CT 12/27/19 00:00 IMPRESSION: Mild involutional changes with mild chronic microvascular ischemia. No acute intracranial imaging findings. EVIDENCE OF ACUTE STROKE: NO. Venous Doppler Study 12/28/19 00:00 IMPRESSION: No evidence of DVT or SVT within the left arm. Chest X-Ray 12/30/19 05:00 IMPRESSION: NO CHANGE IN APPEARANCE OF THE CHEST. All labs, radiographs, diagnostic studies and EKGs were personally reviewed: Yes In addition, reports of radiographic and diagnostic studies were read: Yes Assessment and Plan - Diagnosis (1) Endotracheally intubated Is this a current diagnosis for this admission?: Yes Plan: Plans to extubate have been delayed by interval worsening of left lung atelectasis, suspected to be due to pooling of secretions. Position patient [id number]. Pulmonary toilet. Repeat x-ray in a.m. (2) Hypomagnesemia Is this a current diagnosis for this admission?: Yes Plan: Replete (3) Hypokalemia Is this a current diagnosis for this admission?: Yes Plan: Replete (4) Aspiration pneumonia Qualifiers: Laterality: right Lung location: lower lobe of lung Is this a current diagnosis for this admission?: Yes Plan: Trach aspirate isolated Enterobacter cloacae, MDR but sensitive to Zosyn according to data. Continue Zosyn but will need dosage increase (14-day course). Stop vancomycin. (5) Aspiration into lower respiratory tract Qualifiers: Encounter type: subsequent encounter Qualified Code(s): T17.800D - Unspecified foreign body in other parts of respiratory tract causing asphyxiation, subsequent encounter Is this a current diagnosis for this admission?: Yes Plan: The most recent chest x-ray suggested that she is pooling secretions in the left lung. (6) Cardiac arrest Is this a current diagnosis for this admission?: Yes (7) Anoxic-ischemic encephalopathy Is this a current diagnosis for this admission?: Yes Plan: Improving. Frequent neuro checks. Continue Keppra. (8) Urinary tract infection Qualifiers: Urinary tract infection type: site unspecified Hematuria presence: without hematuria Qualified Code(s): N39.0 - Urinary tract infection, site not specified Is this a current diagnosis for this admission?: Yes (9) Nutrition deficiency due to insufficient food Is this a current diagnosis for this admission?: Yes Plan: On tube feeds. Change Jevity 1.5 to Glucerna 1.5. (10) Microcytic anemia Is this a current diagnosis for this admission?: Yes (11) Hypertension Qualifiers: Hypertension type: essential hypertension Qualified Code(s): I10 - Essential (primary) hypertension Is this a current diagnosis for this admission?: Yes (12) Atrial fibrillation Qualifiers: Atrial fibrillation type: permanent Qualified Code(s): I48.21 - Permanent atrial fibrillation Is this a current diagnosis for this admission?: Yes Plan: Continue Xarelto. (13) Abnormal EEG Is this a current diagnosis for this admission?: Yes Plan: Continue Keppra. Critical Time Critical Time (minutes): 60 Level of Care: ICU -: 1. The care of a critical patient is a dynamic process. This note is a associate sales representative synopsis but static in nature. The timeframe for treatments given in order is not necessarily the actual time these treatments may have been done. 2. This patient requires critical care secondary to ongoing requirements for therapy not offered or safe outside the critical care environment. Transfer to a lower level of care will result in altered life or limb morbidity and mortality. 3. Multidisciplinary rounds completed. 4. ABCDE bundle addressed.
[2019-12-30] MEDS: LABETALOL HCL INJ 20 MG/4 ML DISP.SYRIN IV PRN (17:47)
[2019-12-30] MEDS: RIVAROXABAN 10 MG TABLET NG SCH (17:47)
[2019-12-31] MEDS: INSULIN REG, HUMAN 100 UNIT/ML 3 ML VIAL (PYX) SUBCUT SCH ×5 (03:18→23:44)
[2019-12-31] MEDS: PIPERACILLIN SODIUM/TAZOBACTAM 4.5 GM in NORMAL SALINE 100 ML IV SCH ×4 (03:19→20:41)
[2019-12-31] MEDS: HYDRALAZINE HCL 25 MG TABLET NG SCH ×3 (05:38→21:37)
[2019-12-31 06:04] LABS: ARTERIAL BLOOD BASE EXCESS 1.6 mmol/L; ARTERIAL BLOOD H2CO3 0.99 mmol/L (1.05-1.35); ARTERIAL BLOOD HCO3 24.6 mmol/L (20-24); ARTERIAL BLOOD O2 SATURATION 94.6 % (94-98); ARTERIAL BLOOD PCO2 32.9 mmHg (35-45); ARTERIAL BLOOD PH 7.49 (7.35-7.45); ARTERIAL BLOOD PO2 65.9 mmHg (80-100); ARTERIAL BLOOD TOTAL CO2 25.6 mmol/L (21-25)
[2019-12-31 06:06] LABS: ARTERIAL BLOOD FIO2 21%
[2019-12-31 06:07] LABS: ABSOLUTE EOSINOPHILS # (AUTO) 0.1 10^3/uL (0.0-0.6); ABSOLUTE LYMPHOCYTES (AUTO) 0.8 10^3/uL (0.5-4.7); ABSOLUTE MONOCYTES (AUTO) 0.7 10^3/uL (0.1-1.4); ABSOLUTE NEUT (AUTO) 7.6 10^3/uL (1.7-8.2); BASOPHILS % (AUTO) 0.2 % (0-2); HEMATOCRIT 30.2 % (36.0-47.0); LYMPHOCYTES % (AUTO) 9.1 % (13-45); MEAN CORPUSCULAR HEMOGLOBIN 22.7 pg (27.0-33.4); MEAN CORPUSCULAR VOLUME 69 fl (80-97); MONOCYTES % (AUTO) 8.1 % (3-13); PLATELET COUNT 177 10^3/uL (150-450); RED BLOOD COUNT 4.38 10^6/uL (3.72-5.28); RED CELL DISTRIBUTION WIDTH 15.7 % (11.5-14.0); SEGMENTED NEUTROPHILS % (AUTO) 81.6 % (42-78); TOTAL CELLS COUNTED % (AUTO) 100 %; WHITE BLOOD COUNT 9.3 10^3/uL (4.0-10.5)
[2019-12-31 06:24] LABS: ANION GAP 8 (5-19); BLOOD UREA NITROGEN 20 mg/dL (7-20); CALCIUM 8.4 mg/dL (8.4-10.2); CARBON DIOXIDE 28 mmol/L (22-30); CHLORIDE 100 mmol/L (98-107); GLUCOSE 249 mg/dL (75-110); PHOSPHORUS 2.5 mg/dL (2.5-4.5); POTASSIUM 3.6 mmol/L (3.6-5.0)
--- NOTE | 2019-12-31 06:29 | RADIOLOGY REPORT (SQ) ---
EXAM DESCRIPTION: XR CHEST 1 VIEW COMPLETED DATE/TME: 12/31/2019 05:00 CLINICAL HISTORY: 84 years Female, left lung atelectasis COMPARISON: One day prior. NUMBER OF VIEWS/TECHNIQUE: 1/AP FINDINGS: Complete obscuration", "white out"of the left hemithorax. Interval worsening. Differential diagnosis includes effusion, hemorrhage/contusion, collapse, and infectious/neoplastic processes. Moderate mixed airspace and interstitial opacities moderate hazy opacity-effusion of the right lower and mid hemithorax. Atherosclerosis. Obscured diaphragm. Adequate appearing endotracheal tube. Adequate appearing enteric tube. Adequate appearing right jugular central line. Limitation: Leads/hardware/artifact. Obscured cardiac silhouette. Leftward cardiac shift-rotation. No pneumothorax. Stable bony thorax. IMPRESSION: 1. Complete obscuration", "white out"of the left hemithorax. Interval worsening. Differential diagnosis includes effusion, hemorrhage/contusion, collapse, and infectious/neoplastic processes. 2. Moderate mixed airspace and interstitial opacities moderate hazy opacity-effusion of the right lower and mid hemithorax.
[2019-12-31] MEDS: LABETALOL HCL INJ 20 MG/4 ML DISP.SYRIN IV PRN (06:47)
[2019-12-31] MEDS ORDERED: LIDOCAINE 1% INJ-PF (10 MG/ML) 30 ML SDV ONE (07:55)
[2019-12-31] MEDS ORDERED: PROPOFOL INJ 200 MG/20 ML VIAL IV ONE ×2 (07:56→09:21)
[2019-12-31] MEDS ORDERED: FENTANYL CITRATE INJ/PF 100 MCG/2 ML AMPUL ONE (07:56)
[2019-12-31] MEDS: RINGERS SOLUTION,LACTATED 1,000 ML IV PRN (08:16)
--- NOTE | 2019-12-31 09:02 | Operative Report ---
Bedside Procedure - History of Present Illness Indication for Procedure: Left lung atelectasis Date: 12/26/19 Provider: KASH LARSEN - Conscious Sedation Conscious sedation Time started: 08:20 Time completed: 08:54 Consent obtained: Yes Indication: Left lung atelectasis Emergent conditions applies.: E. - ASA Classification Airway Evaluation: Normal anatomy Used during procedure: Suction available, IV access obtained, Pulse ox on pt., equipment monitor phototypesetting on pt. Medications administered: Fentanyl, Diprivan Reversal agents: None I personally performed/intraservice time: Sedation, Procedure, 30 min or less Complications: No Notes: PROCEDURE TECHNIQUE: Flexible bronchoscopy: Informed consent was obtained from the patient's daughter (Maritza) after explaining the risks, (pneumothorax, life threatening bleeding, infection and adverse effects due to medications) benefits and alternatives to the procedure. Procedure was performed in the ICU, where the patient is already endotracheally intubated and on mechanical ventilatory support and connected to monitoring devices. IV medicine administered through right IJ central venous catheter. Lidocaine 1% (total 10 mL), propofol 10 mL total, fentanyl 50 mcg total were used for local anesthesia and conscious sedation. The bronchoscope was inserted and the airway examined. FINDINGS: Airway anatomy was completely normal throughout the right and left tracheobronchial trees. Airway mucosa was normal. Copious copious inspissated mucus secretions were noted in the left mainstem bronchus with spillover into the right mainstem bronchus. The secretions in the right side were easily removed with suctioning. However, the left sided secretions proved difficult to remove. With suctioning, a mucous plug was successfully removed from the left tracheobronchial tree. SOUND CONTROLLER DIAGNOSIS: Left lung atelectasis secondary to mucous plugging.
[2019-12-31] MEDS: BENAZEPRIL HCL 20 MG TABLET NG SCH (09:18)
[2019-12-31] MEDS: CARVEDILOL 6.25 MG TABLET NG SCH (09:19)
[2019-12-31] MEDS: LEVETIRACETAM 500 MG/NACL-ISO 500 MG/100 ML RTUPB IV SCH ×2 (09:20→21:23)
[2019-12-31] MEDS: FAMOTIDINE INJ/PF 20 MG/2 ML SDV IV SCH ×2 (09:20→21:24)
[2019-12-31] MEDS ORDERED: FENTANYL CITRATE INJ/PF 100 MCG/2 ML AMPUL IV ONE (09:30)
[2019-12-31] MEDS: CETIRIZINE 10 MG TABLET NG SCH (09:43)
--- NOTE | 2019-12-31 09:57 | RADIOLOGY REPORT (SQ) ---
EXAM DESCRIPTION: CHEST SINGLE VIEW IMAGES COMPLETED DATE/TIME: 12/31/2019 9:38 am REASON FOR STUDY: postprocedure (bronchoscopy), L lung atelectasis COMPARISON: Earlier the same day. EXAM PARAMETERS: NUMBER OF VIEWS: One view. TECHNIQUE: Single frontal radiographic view of the chest acquired. RADIATION DOSE: NA LIMITATIONS: None. FINDINGS: LUNGS AND PLEURA: Persistent opacification throughout the majority of the left hemithorax. Aeration is slightly improved in the left upper lobe. Persistent right basilar infiltrate. Suppor t lines and tubes remain in satisfactory position. MEDIASTINUM AND HILAR STRUCTURES: No masses. Contour normal. HEART AND VASCULAR STRUCTURES: Unchanged. BONES: No acute findings. HARDWARE: Unchanged. OTHER: No other significant finding. IMPRESSION: Mild improvement in aeration in the left upper lobe when compared to the earlier film. TECHNICAL DOCUMENTATION: JOB ID: [id number] 2010 [employer]- All Rights Reserved Reading location - IP/workstation name: [email or web address]
[2019-12-31] MEDS ORDERED: LIDOCAINE 1% INJ-PF (10 MG/ML) 30 ML SDV INJ ONE (12:00)
[2019-12-31] MEDS: DEXMEDETOMIDINE IN 0.9 % NACL 400 MCG/100 ML RTUPB IV PRN (15:02)
[2019-12-31] MEDS: METOPROLOL TARTRATE PF/INJ 5 MG/5 ML SDV IV PRN (15:22)
--- NOTE | 2019-12-31 15:36 | PDOC CRITICAL CARE PROG REPORT ---
General Date:: 12/31/19 ICU Day:: 8 Ventilator Day:: 8 Hospital Day:: 8 Resuscitation Status: Full Code Events in the past 12 to 24 Hours:: Aspiration and cardiac arrest (12/23). Based on review of ER documentation, this 84 year old female nonsmoker was admitted after a witnessed cardiac arrest in the field. Family initiated CPR. ROSC estimated to have occurred after 10 min of CPR. Intubated in the field. Family reported HTN, DM, hypercholesterolemia and "bone infection". "R sided" weakness and "does not speak" at baseline, per family report. Progressive dysphagia. 12/26: remains intubated. 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 Takes Xarelto at home for stroke prophylaxis. Currently on heparin for DVT prophylaxis. Trach aspirate (12/23) isolated C albicans and respiratory vivian, despite 4+ PMNs and GPC in chains on smear. Urine (12/22) isolated viridans strep and P mirabilis. Blood (12/22) isolated CONS. Currently on Zosyn/Zyvox. DVT PROPHYLAXIS: Heparin. GI PROPHYLAXIS: Famotidine. 12/27: Remains intubated. FiO2 down to 21%. EEG was attempted yesterday to further evaluate for evidence of seizure/postictal state. Unable to complete study due to technical malfunction of EEG. Today, spontaneously opens eyes and looks around the room. Does not follow commands. But, no evidence of pathologic reflexes or seizure activity. Moves all 4 extremities to noxious stimuli. Restarted Xarelto. Monitor shows atrial fibrillation, rate controlled. Still hypertensive, but SBP better, now 150s. Still on Zosyn/Zyvox. DVT PROPHYLAXIS: Xarelto. GI PROPHYLAXIS: Famotidine. 12/28: Remains intubated. FiO2 still 21%. EEG report raises the issue of a potential role for antiepileptic therapy. She is currently on Precedex for sedation. Moves all 4 extremities to noxious stimuli (right better than left). Atrial fibrillation, rate controlled. On Xarelto. She continues on Zosyn/Zyvox. Started tube feeds yesterday. Currently on Jevity 1.5 (goal 50 mL/h). DVT PROPHYLAXIS: Xarelto. GI PROPHYLAXIS: Famotidine. 12/29: Remains intubated. FiO2 still 21%. Chest x-ray is much worse today with interval increase in left lung atelectasis, secondary to pooling of secretions. Started on Keppra yesterday. On Precedex for sedation. Easily arousable. Does not clearly follow commands but does visually track around the room. On Zosyn/Zyvox. Trach aspirate isolated Enterobacter cloacae and Karon albicans. Currently on Jevity 1.5. Blood sugars > 300. DVT PROPHYLAXIS: Xarelto. GI PROPHYLAXIS: Famotidine. 12/30: Chest x-ray this morning showed pleat left lung atelectasis. Imaging findings were discussed with the patient's daughter along with the potential role for prior fiberoptic bronchoscopic evaluation. The patient's daughter agreed to proceed. Mucous plugging was identified in the left mainstem bronchus. Subsequent airways appeared to be patent with only modest watery secretions visualized. Follow-up x-ray does reveal improved aeration, particularly in the left upper lobe. More importantly, the patient is demonstrating improved mentation. She does follow some commands. On Zosyn for Enterobacter cloacae pneumonia. On Glucerna 1.5. Still with elevated blood sug ars. DVT PROPHYLAXIS: Xarelto. GI PROPHYLAXIS: Famotidine. Review of systems relevant to events:: Cardiovascular, neurologic, respiratory Reason for ICU Addmission:: Status post cardiac arrest, respiratory failure. Intubated - Medications: Medications reviewed and adjusted accordingly: Yes Physical Exam Vital Signs: Temp Pulse Resp BP Pulse Ox 97.7 F 88 20 142/88 H 100 12/31/19 10:00 12/31/19 10:00 12/31/19 10:30 12/31/19 10:30 12/31/19 11:46 Intake & Output 12/30/19 12/31/19 01/01/20 06:59 06:59 06:59 Intake Total 2930 3390 70 Output Total 2520 2280 500 Balance 410 1110 -430 Weight 89.5 kg 90.1 kg Weight/Height Weight 90.1 kg Height 1.68 m General appearance: PRESENT: no acute distress, well-developed, well-nourished Head exam: PRESENT: atraumatic, normocephalic Mouth exam: PRESENT: moist, tongue midline, other - Copious ear, mucous oral secretions Neck exam: ABSENT: carotid bruit, JVD, lymphadenopathy, thyromegaly Respiratory exam: PRESENT: decreased breath sounds, rales. ABSENT: rhonchi, wheezes Cardiovascular exam: PRESENT: irregular rhythm. ABSENT: diastolic murmur, rubs, systolic murmur Pulses: PRESENT: normal dorsalis pedis pul GI/Abdominal exam: PRESENT: normal bowel sounds, soft. ABSENT: distended, guarding, mass, organolmegaly, rebound, tenderness Extremities exam: ABSENT: calf tenderness, clubbing, pedal edema Neurological exam: PRESENT: alert, CN II-XII grossly intact Skin exam: PRESENT: dry, intact, warm. ABSENT: cyanosis, rash Tubes/Lines: PRESENT: Endotracheal Tube, Central Line - Right IJ, Other - Orogastric Laboratory/Radiographs Laboratory Results: 12/31/19 05:50 12/31/19 05:50 12/31/19 12/31/19 12/31/19 05:50 05:50 05:50 WBC 9.3 RBC 4.38 Hgb 10.0 L Hct 30.2 L MCV 69 L MCH 22.7 L MCHC 33.0 RDW 15.7 H Plt Count 177 Seg Neutrophils % 81.6 H Carbonic Acid 0.99 L HCO3/H2CO3 Ratio 24:1 ABG pH 7.49 H ABG pCO2 32.9 L ABG pO2 65.9 L ABG HCO3 24.6 H ABG O2 Saturation 94.6 ABG Base Excess 1.6 FiO2 21% Sodium 135.9 L Potassium 3.6 Chloride 100 Carbon Dioxide 28 Anion Gap 8 BUN 20 Creatinine 0.75 Est GFR ( Amer) > 60 Glucose 249 H Calcium 8.4 Phosphorus 2.5 Magnesium 2.0 12/27/19 10:58 Tracheal Aspirate Gram Stain - Final 12/27/19 10:58 Tracheal Aspirate Sputum Culture - Final Enterobacter Cloacae C.albicans/C.dubliniensis Normal Vivian Absent 12/23/19 12/24/19 12/26/19 20:20 03:55 05:00 Creatine Kinase 97 CK-MB (CK-2) Troponin I 0.087 NT-Pro-B Natriuret Pep 976 H 12/26/19 12/28/19 12/29/19 05:00 08:49 05:35 Creatine Kinase CK-MB (CK-2) 5.98 H Troponin I 0.065 NT-Pro-B Natriuret Pep 734 H 4720 H 4460 H 12/30/19 05:20 Creatine Kinase CK-MB (CK-2) Troponin I NT-Pro-B Natriuret Pep 3450 H Impressions: Head CT 12/27/19 00:00 IMPRESSION: Mild involutional changes with mild chronic microvascular ischemia. No acute intracranial imaging findings. EVIDENCE OF ACUTE STROKE: NO. Venous Doppler Study 12/28/19 00:00 IMPRESSION: No evidence of DVT or SVT within the left arm. Chest X-Ray 12/31/19 08:53 IMPRESSION: Mild improvement in aeration in the left upper lobe when compared to the earlier film. All labs, radiographs, diagnostic studies and EKGs were personally reviewed: Yes In addition, reports of radiographic and diagnostic studies were read: Yes Assessment and Plan - Diagnosis (1) Endotracheally intubated Is this a current diagnosis for this admission?: Yes Plan: Awaiting neurologic recovery post procedure. I anticipate liberation from mechanical ventilatory support later today. Repeat x-ray in a.m. (2) Aspiration pneumonia Qualifiers: Laterality: right Lung location: lower lobe of lung Is this a current diagnosis for this admission?: Yes Plan: Trach aspirate isolated Enterobacter cloacae, MDR but sensitive to Zosyn according to data. Continue Zosyn (14-day course). (3) Hypomagnesemia Is this a current diagnosis for this admission?: Yes (4) Hypokalemia Is this a current diagnosis for this admission?: Yes Plan: Replete (5) Cardiac arrest Is this a current diagnosis for this admission?: Yes (6) Aspiration into lower respiratory tract Qualifiers: Encounter type: subsequent encounter Qualified Code(s): T17.800D - Unspecified foreign body in other parts of respiratory tract causing asphyxiation, subsequent encounter Is this a current diagnosis for this admission?: Yes Plan: The most recent chest x-ray suggested that she is pooling secretions in the left lung. During bronchoscopy, the patient was noted to have copious clear mucus secretions emanating from the nasal mucosa and pulling in the posterior oropharynx. Start antihistamine (cetirizine). (7) Anoxic-ischemic encephalopathy Is this a current diagnosis for this admission?: Yes Plan: Improving. Frequent neuro checks. Continue Keppra. (8) Urinary tract infection due to Proteus Is this a current diagnosis for this admission?: Yes Plan: Covered with Zosyn. (9) Hypertension Qualifiers: Hypertension type: essential hypertension Qualified Code(s): I10 - Essential (primary) hypertension Is this a current diagnosis for this admission?: Yes Plan: Home antihypertensive regimen: Carvedilol 12.5 mg p.o. twice daily; hydralazine 25 mg p.o. every 8 hours; benazepril 40 mg p.o. daily. Benazepril and hydralazine has been restarted in the interim. On carvedilol 6.25 mg p.o. twice daily. Will increase dose to 12.5 mg p.o. twice daily today. (10) Nutrition deficiency due to insufficient food Is this a current diagnosis for this admission?: Yes Plan: On Glucerna 1.5. (11) Microcytic anemia Is this a current diagnosis for this admission?: Yes (12) Atrial fibrillation Qualifiers: Atrial fibrillation type: permanent Qualified Code(s): I48.21 - Permanent atrial fibrillation Is this a current diagnosis for this admission?: Yes Plan: Continue Xarelto. (13) Abnormal EEG Is this a current diagnosis for this admission?: Yes Plan: Continue Keppra. Critical Time Critical Time (minutes): 60 Level of Care: ICU -: 1. The care of a critical patient is a dynamic process. This note is a client relations representative synopsis but static in nature. The timeframe for treatments given in order is not necessarily the actual time these treatments may have been done. 2. This patient requires critical care secondary to ongoing requirements for therapy not offered or safe outside the critical care environment. Transfer to a lower level of care will result in altered life or limb morbidity and mortality. 3. Multidisciplinary rounds completed. 4. ABCDE bundle addressed.
[2019-12-31] MEDS: RIVAROXABAN 10 MG TABLET NG SCH (17:47)
[2019-12-31] MEDS: CARVEDILOL 12.5 MG TABLET NG SCH (21:24)
[2019-12-31] MEDS ORDERED: CARVEDILOL 6.25 MG TABLET NG SCH (22:00)
[2019-12-31] MEDS ORDERED: CARVEDILOL 12.5 MG TABLET NG SCH (22:00)
[2019-12-31] MEDS: INSULIN GLARGINE,HUM.REC.ANLOG 1,000 UNIT/10 ML VIAL SUBCUT SCH (22:34)
[2020-01-01] MEDS ORDERED: RINGERS SOLUTION,LACTATED 500 ML IV ONE (01:52)
[2020-01-01] MEDS: PIPERACILLIN SODIUM/TAZOBACTAM 4.5 GM in NORMAL SALINE 100 ML IV SCH ×4 (02:18→21:50)
[2020-01-01] MEDS: RINGERS SOLUTION,LACTATED 1,000 ML IV PRN (03:32)
[2020-01-01] MEDS: METOPROLOL TARTRATE PF/INJ 5 MG/5 ML SDV IV PRN (03:32)
[2020-01-01] MEDS: HYDRALAZINE HCL 25 MG TABLET NG SCH ×3 (05:19→22:17)
[2020-01-01 05:39] LABS: ARTERIAL BLOOD BASE EXCESS 3.7 mmol/L; ARTERIAL BLOOD FIO2 21%; ARTERIAL BLOOD H2CO3 1.22 mmol/L (1.05-1.35); ARTERIAL BLOOD HCO3 27.9 mmol/L (20-24); ARTERIAL BLOOD O2 SATURATION 91.7 % (94-98); ARTERIAL BLOOD PCO2 40.5 mmHg (35-45); ARTERIAL BLOOD PH 7.46 (7.35-7.45); ARTERIAL BLOOD PO2 58.7 mmHg (80-100); ARTERIAL BLOOD TOTAL CO2 29.1 mmol/L (21-25)
[2020-01-01 05:39] LABS: ABSOLUTE EOSINOPHILS # (AUTO) 0.1 10^3/uL (0.0-0.6); ABSOLUTE LYMPHOCYTES (AUTO) 0.8 10^3/uL (0.5-4.7); ABSOLUTE MONOCYTES (AUTO) 0.6 10^3/uL (0.1-1.4); ABSOLUTE NEUT (AUTO) 7.4 10^3/uL (1.7-8.2); BASOPHILS % (AUTO) 0.1 % (0-2); EOSINOPHILS % (AUTO) 0.6 % (0-6); HEMATOCRIT 26.6 % (36.0-47.0); HEMOGLOBIN 8.8 g/dL (12.0-15.5); LYMPHOCYTES % (AUTO) 9.2 % (13-45); MEAN CORPUSCULAR HEMOGLOBIN 22.9 pg (27.0-33.4); MEAN CORPUSCULAR HGB CONC 33.2 g/dL (32.0-36.0); MEAN CORPUSCULAR VOLUME 69 fl (80-97); MONOCYTES % (AUTO) 6.6 % (3-13); PLATELET COUNT 151 10^3/uL (150-450); RED BLOOD COUNT 3.86 10^6/uL (3.72-5.28); SEGMENTED NEUTROPHILS % (AUTO) 83.5 % (42-78); TOTAL CELLS COUNTED % (AUTO) 100 %; WHITE BLOOD COUNT 8.9 10^3/uL (4.0-10.5)
[2020-01-01 06:04] LABS: ANION GAP 5 (5-19); BLOOD UREA NITROGEN 23 mg/dL (7-20); CALCIUM 8.1 mg/dL (8.4-10.2); CARBON DIOXIDE 28 mmol/L (22-30); CHLORIDE 104 mmol/L (98-107); GLUCOSE 172 mg/dL (75-110); PHOSPHORUS 2.7 mg/dL (2.5-4.5); POTASSIUM 3.5 mmol/L (3.6-5.0)
[2020-01-01] MEDS: INSULIN REG, HUMAN 100 UNIT/ML 3 ML VIAL (PYX) SUBCUT SCH ×4 (06:22→22:00)
[2020-01-01] MEDS: DEXMEDETOMIDINE IN 0.9 % NACL 400 MCG/100 ML RTUPB IV PRN (06:27)
--- NOTE | 2020-01-01 07:05 | RADIOLOGY REPORT (SQ) ---
CHEST 1 VIEW on 01/01/2020 at 5:38 AM CLINICAL INDICATION: Left lung atelectasis COMPARISON: 12/31/2019 FINDINGS: ET tube tip is in the mid thoracic trachea. Right IJ catheter tip is near the cavoatrial junction. NG tube extends into the distal stomach and below the level of this film. There has been improvement in left pleural effusion. There are moderate right greater than left pleural effusions. There are bilateral mid and lower lung predominant opacities consistent with edema, atelectasis and/or pneumonia. There is no pneumothorax. Vascular calcification is noted in the aorta. IMPRESSION: Improved left pleural effusion with continued bilateral pleural effusions with bilateral opacities consistent with edema, atelectasis and/or pneumonia.
[2020-01-01] MEDS: LEVETIRACETAM 500 MG/NACL-ISO 500 MG/100 ML RTUPB IV SCH ×2 (09:33→22:18)
[2020-01-01] MEDS: CARVEDILOL 12.5 MG TABLET NG SCH ×2 (09:33→22:17)
[2020-01-01] MEDS: CETIRIZINE 10 MG TABLET NG SCH (09:33)
[2020-01-01] MEDS: BENAZEPRIL HCL 20 MG TABLET NG SCH (09:33)
[2020-01-01] MEDS: FAMOTIDINE INJ/PF 20 MG/2 ML SDV IV SCH ×2 (09:33→22:16)
[2020-01-01 12:01] LABS: ARTERIAL BLOOD BASE EXCESS 2.2 mmol/L; ARTERIAL BLOOD FIO2 21%; ARTERIAL BLOOD H2CO3 1.08 mmol/L (1.05-1.35); ARTERIAL BLOOD HCO3 25.8 mmol/L (20-24); ARTERIAL BLOOD PCO2 35.9 mmHg (35-45); ARTERIAL BLOOD PH 7.47 (7.35-7.45); ARTERIAL BLOOD PO2 51.5 mmHg (80-100); ARTERIAL BLOOD TOTAL CO2 26.9 mmol/L (21-25)
[2020-01-01] MEDS ORDERED: POTASSIUM CHLORIDE 20 MEQ PACKET PO ONE ×2 (13:24→16:00)
[2020-01-01] MEDS ORDERED: RINGERS SOLUTION,LACTATED 1,000 ML IV PRN (13:25)
[2020-01-01] MEDS ORDERED: ATROPINE SULFATE INJ 1 MG/10 ML DISP.SYRIN IV ONE (13:29)
[2020-01-01] MEDS ORDERED: EPINEPHRINE INJ 1 MG/10 ML DISP.SYRIN ONE ×2 (13:32→14:51)
[2020-01-01 16:38] LABS: ARTERIAL BLOOD BASE EXCESS 3.3 mmol/L; ARTERIAL BLOOD H2CO3 1.25 mmol/L (1.05-1.35); ARTERIAL BLOOD HCO3 27.7 mmol/L (20-24); ARTERIAL BLOOD O2 SATURATION 99.3 % (94-98); ARTERIAL BLOOD PCO2 41.6 mmHg (35-45); ARTERIAL BLOOD PH 7.44 (7.35-7.45); ARTERIAL BLOOD PO2 176.9 mmHg (80-100)
[2020-01-01 16:39] LABS: ARTERIAL BLOOD FIO2 60%
--- NOTE | 2020-01-01 16:57 | PDOC CRITICAL CARE PROG REPORT ---
General Date:: 01/01/20 ICU Day:: 9 Ventilator Day:: 9 Hospital Day:: 9 Resuscitation Status: Full Code Events in the past 12 to 24 Hours:: Aspiration and cardiac arrest (12/23). Based on review of ER documentation, this 84 year old female nonsmoker was admitted after a witnessed cardiac arrest in the field. Family initiated CPR. ROSC estimated to have occurred after 10 min of CPR. Intubated in the field. Family reported HTN, DM, hypercholesterolemia and "bone infection". "R sided" weakness and "does not speak" at baseline, per family report. Progressive dysphagia. 12/26: remains intubated. color television console monitor shows atrial fibrillation, rate controlled. Takes Xarelto at home for stroke prophylaxis. Currently on heparin for DVT prophylaxis. Trach aspirate (12/23) isolated C albicans and respiratory vivian, despite 4+ PMNs and GPC in chains on smear. Urine (12/22) isolated viridans strep and P mirabilis. Blood (12/22) isolated CONS. Currently on Zosyn/Zyvox. DVT PROPHYLAXIS: Heparin. GI PROPHYLAXIS: Famotidine. 12/27: Remains intubated. FiO2 down to 21%. EEG was attempted yesterday to further evaluate for evidence of seizure/postictal state. Unable to complete study due to technical malfunction of EEG. Today, spontaneously opens eyes and looks around the room. Does not follow commands. But, no evidence of pathologic reflexes or seizure activity. Moves all 4 extremities to noxious stimuli. Restarted Xarelto. Monitor shows atrial fibrillation, rate controlled. Still hypertensive, but SBP better, now 150s. Still on Zosyn/Zyvox. DVT PROPHYLAXIS: Xarelto. GI PROPHYLAXIS: Famotidine. 12/28: Remains intubated. FiO2 still 21%. EEG report raises the issue of a potential role for antiepileptic therapy. She is currently on Precedex for sedation. Moves all 4 extremities to noxious stimuli (right better than left). Atrial fibrillation, rate controlled. On Xarelto. She continues on Zosyn/Zyvox. Started tube feeds yesterday. Currently on Jevity 1.5 (goal 50 mL/h). DVT PROPHYLAXIS: Xarelto. GI PROPHYLAXIS: Famotidine. 12/29: Remains intubated. FiO2 still 21%. Chest x-ray is much worse today with interval increase in left lung atelectasis, secondary to pooling of secretions. Started on Keppra yesterday. On Precedex for sedation. Easily arousable. Does not clearly follow commands but does visually track around the room. On Zosyn/Zyvox. Trach aspirate isolated Enterobacter cloacae and Karon albicans. Currently on Jevity 1.5. Blood sugars > 300. DVT PROPHYLAXIS: Xarelto. GI PROPHYLAXIS: Famotidine. 12/30: Chest x-ray this morning showed pleat left lung atelectasis. Imaging findings were discussed with the patient's daughter along with the potential r ole for prior fiberoptic bronchoscopic evaluation. The patient's daughter agreed to proceed. Mucous plugging was identified in the left mainstem bronchus. Subsequent airways appeared to be patent with only modest watery secretions visualized. Follow-up x-ray does reveal improved aeration, partic ularly in the left upper lobe. More importantly, the patient is demonstrating improved mentation. She does follow some commands. On Zosyn for Enterobacter cloacae pneumonia. On Glucerna 1.5. Still with elevated blood sugars. DVT PROPHYLAXIS: Xarelto. GI PROPHYLAXIS: Famotidine. 12/31: Remains intubated. Sedated with Precedex. The patient was positioned preferentially right side down yesterday. Chest x-ray this morning shows considerable improvement in the left lung aeration with evidence for spillover of secretions into the right base. Also, was started on cetirizine yesterday after bronchoscopy revealed evidence of rhinorrhea, potentially contributing to the amount of drooling from the patient's mouth. On Zosyn. Started on Lantus 15 units subcutaneously nightly. On Glucerna 1.5. Sugar control is still suboptimal, but improving. DVT prophylaxis: Xarelto. GI prophylaxis: Famotidine. At approximately 1330, the patient developed sudden bradycardia and progressed to asystole while on pressure support ventilation. Of note, the patient was not experiencing increased work of breathing or increased respiratory rate. In fact, her heart rate and breathing slowed down together. Chest compressions were started, and she was given 1 amp epinephrine, 1 amp atropine. ROSC in less than 1 minute. Review of systems relevant to events:: Cardiovascular, neurologic, respiratory Reason for ICU Addmission:: Status post cardiac arrest, respiratory failure. Intubated - Medications: Medications reviewed and adjusted accordingly: Yes Vasopressors:: None Sedation:: Precedex Physical Exam Vital Signs: Temp Pulse Resp BP Pulse Ox 97.0 F 79 26 H 129/82 H 94 01/01/20 12:00 01/01/20 12:00 01/01/20 12:00 01/01/20 12:00 01/01/20 12:11 Intake & Output 12/31/19 01/01/20 01/02/20 06:59 06:59 06:59 Intake Total 3390 3023 308 Output Total 2280 1825 125 Balance 1110 1198 183 Weight 90.1 kg 89.8 kg Weight/Height Weight 89.8 kg Height 1.68 m General appearance: PRESENT: no acute distress, well-developed, well-nourished Head exam: PRESENT: atraumatic, normocephalic Eye exam: PRESENT: conjunctiva pink, EOMI, PERRLA. ABSENT: scleral icterus Mouth exam: PRESENT: moist, tongue midline, other - Does seem to be drooling less today. Neck exam: ABSENT: carotid bruit, JVD, lymphadenopathy, thyromegaly Respiratory exam: PRESENT: crackles, decreased breath sounds - In the bases, rales, rhonchi Cardiovascular exam: PRESENT: irregular rhythm. ABSENT: diastolic murmur, rubs, systolic murmur Pulses: PRESENT: normal dorsalis pedis pul GI/Abdominal exam: PRESENT: normal bowel sounds, soft. ABSENT: distended, guarding, mass, organolmegaly, rebound, tenderness Extremities exam: PRESENT: full ROM, pedal edema. ABSENT: calf tenderness, clubbing Neurological exam: PRESENT: altered, CN II-XII grossly intact, aphasic Skin exam: PRESENT: dry, intact, warm. ABSENT: cyanosis, rash Tubes/Lines: PRESENT: Endotracheal Tube, Central Line - Right IJ, Other - Orogastric Laboratory/Radiographs Laboratory Results: 01/01/20 05:10 01/01/20 05:10 01/01/20 01/01/20 01/01/20 05:02 05:10 05:10 WBC 8.9 RBC 3.86 Hgb 8.8 L Hct 26.6 L MCV 69 L MCH 22.9 L MCHC 33.2 RDW 16.0 H Plt Count 151 Seg Neutrophils % 83.5 H Carbonic Acid 1.22 HCO3/H2CO3 Ratio 22:1 ABG pH 7.46 H ABG pCO2 40.5 ABG pO2 58.7 L ABG HCO3 27.9 H ABG O2 Saturation 91.7 L ABG Base Excess 3.7 FiO2 21% Sodium 136.7 L Potassium 3.5 L Chloride 104 Carbon Dioxide 28 Anion Gap 5 BUN 23 H Creatinine 0.62 Est GFR ( Amer) > 60 Glucose 172 H Calcium 8.1 L Phosphorus 2.7 Magnesium 2.0 01/01/20 11:40 WBC RBC Hgb Hct MCV MCH MCHC RDW Plt Count Seg Neutrophils % Carbonic Acid 1.08 HCO3/H2CO3 Ratio 23:1 ABG pH 7.47 H ABG pCO2 35.9 ABG pO2 51.5 L ABG HCO3 25.8 H ABG O2 Saturation 89.0 L ABG Base Excess 2.2 FiO2 21% Sodium Potassium Chloride Carbon Dioxide Anion Gap BUN Creatinine Est GFR ( Amer) Glucose Calcium Phosphorus Magnesium 12/23/19 12/24/19 12/26/19 20:20 03:55 05:00 Creatine Kinase 97 CK-MB (CK-2) Troponin I 0.087 NT-Pro-B Natriuret Pep 976 H 12/26/19 12/28/19 12/29/19 05:00 08:49 05:35 Creatine Kinase CK-MB (CK-2) 5.98 H Troponin I 0.065 NT-Pro-B Natriuret Pep 734 H 4720 H 4460 H 12/30/19 05:20 Creatine Kinase CK-MB (CK-2) Troponin I NT-Pro-B Natriuret Pep 3450 H Impressions: Head CT 12/27/19 00:00 IMPRESSION: Mild involutional changes with mild chronic microvascular ischemia. No acute intracranial imaging findings. EVIDENCE OF ACUTE STROKE: NO. Venous Doppler Study 12/28/19 00:00 IMPRESSION: No evidence of DVT or SVT within the left arm. Chest X-Ray 01/01/20 05:00 IMPRESSION: Improved left pleural effusion with continued bilateral pleural effusions with bilateral opacities consistent with edema, atelectasis and/or pneumonia. All labs, radiographs, diagnostic studies and EKGs were personally reviewed: Yes In addition, reports of radiographic and diagnostic studies were read: Yes Assessment and Plan - Diagnosis (1) Asystole Is this a current diagnosis for this admission?: Yes Plan: The patient's son (Hansel "González") was updated by phone. He agreed to update his sisters Maritza and Shara. I have encouraged them to come visit the patient. Also, I did request instructions for subsequent episodes of cardiac arrest. Maritza called back after speaking with Hansel. She had instructions and requests to the care team. She requested that we continue with ongoing care (no withdrawal of care). She requested that we set up a phone call for the patient to hear her grandson's voice. And, she communicated that the patient should be changed to DNR after the phone call is made. Also, while the hope is that the p atient will continue to improve to the point of liberating from mechanical ventilatory support, the children have decided that no further resuscitative efforts (DNR/DNI) should be pursued after extubation. (2) Endotracheally intubated Is this a current diagnosis for this admission?: Yes Plan: Stop Precedex. I anticipate liberation from mechanical ventilatory support later today. (3) Aspiration pneumonia Qualifiers: Laterality: right Lung location: lower lobe of lung Is this a current diagnosis for this admission?: Yes Plan: Trach aspirate isolated Enterobacter cloacae, MDR but sensitive to Zosyn according to data. Continue Zosyn (14-day course). (4) Hypomagnesemia Is this a current diagnosis for this admission?: Yes (5) Hypokalemia Is this a current diagnosis for this admission?: Yes Plan: Replete (6) Cardiac arrest Is this a current diagnosis for this admission?: Yes (7) Aspiration into lower respiratory tract Qualifiers: Encounter type: subsequent encounter Qualified Code(s): T17.800D - Unspecified foreign body in other parts of respiratory tract causing asphyxiation, subsequent encounter Is this a current diagnosis for this admission?: Yes Plan: This patient will have to be watched vigilantly after liberation from mechanical ventilatory support. Aspiration precautions. The patient's head of bed should NEVER be allowed to go below 30 degrees. (8) Anoxic-ischemic encephalopathy Is this a current diagnosis for this admission?: Yes (9) Urinary tract infection due to Proteus Is this a current diagnosis for this admission?: Yes (10) Hypertension Qualifiers: Hypertension type: essential hypertension Qualified Code(s): I10 - Essential (primary) hypertension Is this a current diagnosis for this admission?: Yes Plan: Home antihypertensive regimen: Carvedilol 12.5 mg p.o. twice daily; hydralazine 25 mg p.o. every 8 hours; benazepril 40 mg p.o. daily. Benazepril and hydralazine has been restarted in the interim. On carvedilol 12.5 mg p.o. twice daily. (11) Nutrition deficiency due to insufficient food Is this a current diagnosis for this admission?: Yes Plan: On Glucerna 1.5. (12) Microcytic anemia Is this a current diagnosis for this admission?: Yes (13) Atrial fibrillation Qualifiers: Atrial fibrillation type: permanent Qualified Code(s): I48.21 - Permanent atrial fibrillation Is this a current diagnosis for this admission?: Yes Plan: Continue Xarelto. (14) Abnormal EEG Is this a current diagnosis for this admission?: Yes Plan: Continue Keppra. Critical Time Critical Time (minutes): 120 Level of Care: ICU -: 1. The care of a critical patient is a dynamic process. This note is a fraud representative synopsis but static in nature. The timeframe for treatments given in order is not necessarily the actual time these treatments may have been done. 2. This patient requires critical care secondary to ongoing requirements for therapy not offered or safe outside the critical care environment. Transfer to a lower level of care will result in altered life or limb morbidity and mortality. 3. Multidisciplinary rounds completed. 4. ABCDE bundle addressed.
[2020-01-01] MEDS: RIVAROXABAN 10 MG TABLET NG SCH (21:57)
[2020-01-01] MEDS: INSULIN GLARGINE,HUM.REC.ANLOG 1,000 UNIT/10 ML VIAL SUBCUT SCH (22:16)
[2020-01-02] MEDS: PIPERACILLIN SODIUM/TAZOBACTAM 4.5 GM in NORMAL SALINE 100 ML IV SCH ×3 (03:35→16:53)
[2020-01-02] MEDS: HYDRALAZINE HCL 25 MG TABLET NG SCH ×2 (05:42→14:55)
[2020-01-02] MEDS: INSULIN REG, HUMAN 100 UNIT/ML 3 ML VIAL (PYX) SUBCUT SCH ×2 (06:36→12:33)
--- NOTE | 2020-01-02 08:31 | RADIOLOGY REPORT (SQ) ---
EXAM DESCRIPTION: CHEST SINGLE VIEW IMAGES COMPLETED DATE/TIME: 01/02/2020 8:21 am REASON FOR STUDY: atelectasis COMPARISON: 01/01/2020 FINDINGS: Single-view chest AP portable upright. Mildly limiting rotation and external artifacts. Allowing for differences in technique and artifact, relatively stable appearance. Endotracheal and nasogastric tubes down and appropriate. Right IJ line looks appropriate. Persistent diminished aeration in the lung bases with bilateral effusions and volume loss. No pneumo thorax. TECHNICAL DOCUMENTATION: JOB ID: [id number] Reading location - IP/workstation name: [email or web address]
[2020-01-02] MEDS: CARVEDILOL 12.5 MG TABLET NG SCH (12:18)
[2020-01-02] MEDS: DEXTROSE 50%-WATER 25 GM/50 ML DISP.SYRIN IV PRN ×2 (12:18→17:40)
[2020-01-02] MEDS: CETIRIZINE 10 MG TABLET NG SCH (12:18)
[2020-01-02] MEDS: FAMOTIDINE INJ/PF 20 MG/2 ML SDV IV SCH (12:18)
[2020-01-02] MEDS: LEVETIRACETAM 500 MG/NACL-ISO 500 MG/100 ML RTUPB IV SCH (12:19)
[2020-01-02] MEDS: BENAZEPRIL HCL 20 MG TABLET NG SCH (12:33)
[2020-01-02 12:48] LABS: ARTERIAL BLOOD BASE EXCESS -0.7 mmol/L; ARTERIAL BLOOD FIO2 25%; ARTERIAL BLOOD H2CO3 1.07 mmol/L (1.05-1.35); ARTERIAL BLOOD HCO3 23.3 mmol/L (20-24); ARTERIAL BLOOD O2 SATURATION 97.6 % (94-98); ARTERIAL BLOOD PCO2 35.4 mmHg (35-45); ARTERIAL BLOOD PH 7.44 (7.35-7.45); ARTERIAL BLOOD PO2 96.8 mmHg (80-100); ARTERIAL BLOOD TOTAL CO2 24.4 mmol/L (21-25)
[2020-01-02 12:53] LABS: ABSOLUTE EOSINOPHILS # (AUTO) 0.1 10^3/uL (0.0-0.6); ABSOLUTE LYMPHOCYTES (AUTO) 1.1 10^3/uL (0.5-4.7); ABSOLUTE MONOCYTES (AUTO) 0.8 10^3/uL (0.1-1.4); ABSOLUTE NEUT (AUTO) 9.2 10^3/uL (1.7-8.2); BASOPHILS % (AUTO) 0.1 % (0-2); EOSINOPHILS % (AUTO) 0.9 % (0-6); HEMATOCRIT 23.4 % (36.0-47.0); LYMPHOCYTES % (AUTO) 9.5 % (13-45); MEAN CORPUSCULAR HEMOGLOBIN 22.9 pg (27.0-33.4); MEAN CORPUSCULAR HGB CONC 33.3 g/dL (32.0-36.0); MEAN CORPUSCULAR VOLUME 69 fl (80-97); MONOCYTES % (AUTO) 7.2 % (3-13); PLATELET COUNT 152 10^3/uL (150-450); RED CELL DISTRIBUTION WIDTH 15.1 % (11.5-14.0); SEGMENTED NEUTROPHILS % (AUTO) 82.3 % (42-78); TOTAL CELLS COUNTED % (AUTO) 100 %; WHITE BLOOD COUNT 11.1 10^3/uL (4.0-10.5)
[2020-01-02 12:55] LABS: HEMOGLOBIN 7.8 g/dL (12.0-15.5)
[2020-01-02] MEDS ORDERED: NORMAL SALINE 250 ML IV PRN ×2 (12:58)
[2020-01-02] MEDS ORDERED: FUROSEMIDE INJ/PF 40 MG/4 ML SDV IV PRN (12:58)
[2020-01-02] MEDS ORDERED: CARVEDILOL 12.5 MG TABLET PO SCH (13:00)
[2020-01-02 13:07] LABS: BLOOD UREA NITROGEN 22 mg/dL (7-20); CALCIUM 7.7 mg/dL (8.4-10.2); GLUCOSE 121 mg/dL (75-110); PHOSPHORUS 2.5 mg/dL (2.5-4.5); POTASSIUM 3.4 mmol/L (3.6-5.0)
[2020-01-02 13:12] LABS: CARBON DIOXIDE 31 mmol/L (22-30); CHLORIDE 103 mmol/L (98-107)
[2020-01-02 13:14] LABS: ANION GAP 3 (5-19)
[2020-01-02] MEDS: RIVAROXABAN 10 MG TABLET NG SCH (17:20)
[2020-01-02] MEDS ORDERED: DEXTROSE 5%-NORMAL SALINE 1,000 ML IV PRN (17:32)
[2020-01-02 18:22] VITALS: BP 71/56
--- NOTE | 2020-01-02 18:49 | Death Summary ---
Summary Date : 01/02/20 Time of :: 18:18 Autopsy: No Resuscitation Status: Do Not Resuscitate - Final Diagnosis (1) Endotracheally intubated Is this a current diagnosis for this admission?: Yes (2) Aspiration pneumonia Is this a current diagnosis for this admission?: Yes (3) Aspiration into lower respiratory tract Is this a current diagnosis for this admission?: Yes (4) Hypertension Is this a current diagnosis for this admission?: Yes (5) Hypomagnesemia Is this a current diagnosis for this admission?: Yes (6) Hypokalemia Is this a current diagnosis for this admission?: Yes (7) Anoxic-ischemic encephalopathy Is this a current diagnosis for this admission?: Yes (8) Urinary tract infection due to Proteus Is this a current diagnosis for this admission?: Yes (9) Nutrition deficiency due to insufficient food Is this a current diagnosis for this admission?: Yes (10) Microcytic anemia Is this a current diagnosis for this admission?: Yes (11) Atrial fibrillation Is this a current diagnosis for this admission?: Yes (12) Abnormal EEG Is this a current diagnosis for this admission?: Yes (13) Asystole Is this a current diagnosis for this admission?: Yes (14) Cardiac arrest Is this a current diagnosis for this admission?: Yes Hospital Course:: This 84-year-old -Irish female initially presented to [facility] emergency department on 12/23/2019 after experiencing cardiac arrest in the field. EMS transported the patient to the hospital after a witnessed arrest. Family members had initiated CPR. She was intubated in the field and was started on norepinephrine infusion for hypotension. She was transported to the emergency department. She was admitted to the ICU for post-CPR resuscitation. She was treated with aggressive IV fluid hydration. She presented with acute encephalopathy, dehydration and aspiration (as she was known to be a chronic aspirator per family report). She was able to be liberated from mechanical ventilatory support; however on 12/26/2019, the patient experienced another cardiac arrest secondary to gross aspiration, prompting endotracheal intubation with mechanical ventilatory support for a second time. This was followed by a more prolonged period of encephalopathy. With demonstration of some stereotypical movements, EEG was pursued on 12/28/2019 which raised the suspicion for possible concurrent seizure activity. She was started on Keppra. Tracheal aspirate revealed Enterobacter cloaca E. Urine cultures isolated Proteus mirabilis and viridans streptococci. She was initiated on empiric therapy with Zosyn and Zyvox and continued with Zosyn therapy based on sensitivity data. On 12/28/2019, the patient started to demonstrate some improvement in neurologic function. She became more awake while on mechanical ventilatory support. Over the ensuing days, she did appear to tolerate SIMV and even PSV trials. Her clinical progress, however, was hindered by progressively worsening left lung atelectasis due to accumulation of secretions. This led to fiberoptic bronchoscopic evaluation on 12/31/2019, which revealed pooling of secretions in the left tracheobronchial tree with inspissated mucus secretions in the left mainstem bronchus. Attempts to clear the airways with suctioning did result in considerable improvement in aeration of the left lung. She was maintained on mechanical ventilatory support for 2 additional days, during which she did experience considerable improvement in aeration. In the face of this clinical progress and with the prospect of considering liberation from mechanical ventilation, the patient's children (2 daughters and 1 son: Maritza Olmedo and Michael) were informed of the significant obstacles that would hinder this patient's survival subsequent to extubation. However, they were in agreement that the patient would not be accepting of tracheostomy and/or percutaneous gastrostomy. Consequently, they agreed that the patient should have her CODE STATUS changed to DO NOT RESUSCITATE. Additionally, they stipulated that (while the intention was still to successfully liberate the patient from mechanical ventilatory support) no further resuscitative efforts should be pursued. Specifically, the patient did receive any form of cardiopulmonary resuscitation, including any subsequent endotracheal intubation. On the afternoon of 01/02/2020, the patient did tolerate a spontaneous breathing trial and demonstrated hemodynamic stability. The patient's daughter Shara was at the bedside at the time of extubation. Although the patient was on an FiO2 of 21% at the time of extubation, subsequent to removal of the endotracheal tube, the patient promptly demonstrated oxygen desaturation requiring high levels of supplemental oxygen. Initially, the patient was supported with a face tent followed by high flow nasal cannula and nonrebreather mask. She experienced persistent and precipitous hypoxia followed by bradycardia arrhythmia and subsequently went into asystole. I was physically present at the bedside from the time of extubation to the time of . No response to tactile, verbal, physical or noxious stimuli. Pupils fixed and dilated. No corneal reflex. No spontaneous respirations. No breath sounds. No heart sounds. The patient was pronounced at 1818 on 01/02/2020.
--- NOTE | 2020-01-06 14:59 | CRITICAL CARE ADMISSION REPORT ---
HPI Date:: 12/23/19 Time:: 22:30 Reason for ICU Reason:: Status post cardiac arrest, respiratory failure. HPI: 84-year-old female with a history of diabetes, chronic debilitation, peripheral vascular disease, GERD, possible CAD, hypercholesterolemia and hypertension. It is unclear whether the patient's cardiac arrest at home was witnessed, however the family initiated CPR. An estimated 10 minutes from of CPR to EMS arrival and ROSC. Patient was intubated in the field and started on levophed. Patient's family also reported a "bone infection" but was full to provide further details. She is now being admitted to the intensive care unit status post cardiac arrest. She remains intubated. CT negative for any acute bleed. History obtained from:: Medical record. Past Medical History Cardiac Medical History: Reports: Hyperlipidema, Hypertension, Peripheral Vascular Disease Denies: Coronary Artery Disease, Myocardial Infarction Pulmonary Medical History: Denies: Asthma, Bronchitis, Chronic Obstructive Pulmonary Disease (COPD), Pneumonia, Tuberculosis Neurological Medical History: Denies: Seizures Endocrine Medical History: Reports: Diabetes Mellitus Type 2 GI Medical History: Reports: Gastroesophageal Reflux Disease Musculoskeltal Medical History: Reports: Arthritis Hematology: Denies: Anemia Past Surgical History Past Surgical History: Reports: Cardiac Catheterization - Stents, Orthopedic Surgery - R foot surgery Denies: Pacemaker Social/Family History - Social History Smoking Status: Never Smoker Hx Recreational Drug Use: No Hx Prescription Drug Abuse: No - Medication/Allergies Home Medications: Aspirin [Ecotrin 81 mg EC Tablet] 81 mg PO DAILY 01/04/12 Benazepril HCl [Lotensin] 40 mg PO DAILY 01/04/12 Hydralazine HCl [Apresoline 50 Mg Tablet] 25 mg PO Q8 01/04/12 Insulin Glargine,Hum.rec.anlog [Lantus Insulin 100 Unit/mL] 10 units SQ QHS 10/30/12 Atorvastatin Calcium [Lipitor 40 mg Tablet] 40 mg PO QHS 12/24/19 Carvedilol [Coreg 12.5 mg Tablet] 12.5 mg PO Q12 12/24/19 Rivaroxaban [Xarelto] 20 mg PO QPM 12/24/19 Allergies/Adverse Reactions: No Known Allergies Allergy (Verified 03/23/19 19:59) Review of Systems ROS unobtainable: Due to endotracheal tube, Due to mental status Constitutional: PRESENT: as per HPI Physical Exam Vital Signs: Temp Pulse Resp BP Pulse Ox 98.0 F 16 159/79 H 100 12/23/19 18:53 12/23/19 22:10 12/23/19 22:10 12/23/19 22:10 Intake & Output 12/22/19 12/23/19 12/24/19 06:59 06:59 06:59 Intake Total 4 Balance 4 General appearance: PRESENT: other Exam: Underweight. Ear exam: PRESENT: normal external ear exam Mouth exam: PRESENT: dry mucosa, neck supple Neck exam: ABSENT: carotid bruit, JVD Respiratory exam: PRESENT: rhonchi, symmetrical. ABSENT: rales, wheezes Cardiovascular exam: PRESENT: RRR, +S1, +S2, systolic murmur Pulses: PRESENT: normal carotid pulses, normal radial pulses GI/Abdominal exam: PRESENT: normal bowel sounds Gentrourinary exam: PRESENT: indwelling catheter Extremities exam: ABSENT: joint swelling, pedal edema Musculoskeletal exam: PRESENT: other - Muscle wasting Tubes/Lines: PRESENT: Endotracheal Tube - Oral gastric tube Laboratory/Radiographs Laboratory Results: 12/23/19 20:20 12/23/19 20:20 12/23/19 12/23/19 12/23/19 19:45 20:20 20:20 WBC 9.9 RBC 5.54 H Hgb 12.4 Hct 39.9 MCV 72 L MCH 22.3 L MCHC 31.0 L RDW 16.1 H Plt Count 226 Seg Neutrophils % 86.2 H Carbonic Acid 1.28 HCO3/H2CO3 Ratio 22:1 ABG pH 7.45 ABG pCO2 42.5 ABG pO2 273.4 H ABG HCO3 28.9 H ABG O2 Saturation 99.7 H ABG Base Excess 4.4 FiO2 70% Sodium 141.2 Potassium 4.5 Chloride 103 Carbon Dioxide 32 H Anion Gap 6 BUN 33 H Creatinine 0.78 Est GFR ( Amer) > 60 Glucose 265 H Lactic Acid Calcium 9.6 Total Bilirubin 0.7 AST 23 Alkaline Phosphatase 57 Total Protein 6.5 Albumin 3.4 L 12/23/19 20:20 WBC RBC Hgb Hct MCV MCH MCHC RDW Plt Count Seg Neutrophils % Carbonic Acid HCO3/H2CO3 Ratio ABG pH ABG pCO2 ABG pO2 ABG HCO3 ABG O2 Saturation ABG Base Excess FiO2 Sodium Potassium Chloride Carbon Dioxide Anion Gap BUN Creatinine Est GFR ( Amer) Glucose Lactic Acid 1.5 Calcium Total Bilirubin AST Alkaline Phosphatase Total Protein Albumin 12/23/19 20:20 Troponin I 0.087 Impressions: Chest X-Ray 12/23/19 19:14 IMPRESSION: 1. Status post endotracheal tube placement, with the tip approximately 1.2 cm superior to the zora. The tube needs to be repositioned. 2. Small bilateral pleural effusions suggested. All labs, radiographs, diagnostic studies and EKGs were personally reviewed: Yes In addition, reports of radiographic and diagnostic studies were read: Yes Critical Time Critical Time (minutes): 65 -: The care of a critically ill patient is dynamic. This note represents a static moment in the admission process. Orders and treatments may be given simultaneously and urgently, and time is not tax compliance representative of the treatment process. This patient requires Critical Care secondary to life threatening organ or limb dysfunction. Without Critical Care services, the patient is at risk for increas ed mortality and morbidity.
== END 2020-01-02 20:14 | disposition expired | DRG 207 ==
LOC: ER 18:53 → EH 22:53 → ICU 12-24 02:41
PROVIDERS: ADMIT Anesthesiology; ATTEND Anesthesiology
PROC: 5A1955Z Respiratory Ventilation, Greater than 96 Consecutive Hours (ICD-10-PCS; principal; 2019-12-23)
PROC: 0BH17EZ Insertion of Endotracheal Airway into Trachea, Via Natural or Artificial Opening (ICD-10-PCS; 2019-12-23)
PROC: 0B978ZZ Drainage of Left Main Bronchus, Via Natural or Artificial Opening Endoscopic (ICD-10-PCS; 2019-12-26)
PROC: 0B938ZZ Drainage of Right Main Bronchus, Via Natural or Artificial Opening Endoscopic (ICD-10-PCS; 2019-12-26)
PROC: 0BC78ZZ Extirpation of Matter from Left Main Bronchus, Via Natural or Artificial Opening Endoscopic (ICD-10-PCS; 2019-12-26)
PROC: 02HV33Z Insertion of Infusion Device into Superior Vena Cava, Percutaneous Approach (ICD-10-PCS; 2019-12-26)
PROC: 03HY32Z Insertion of Monitoring Device into Upper Artery, Percutaneous Approach (ICD-10-PCS; 2019-12-26)
PROC: 5A12012 Performance of Cardiac Output, Single, Manual (ICD-10-PCS; 2019-12-26)
DX: J69.0 Pneumonitis due to inhalation of food and vomit (principal); J96.00 Acute respiratory failure, unspecified whether with hypoxia or hypercapnia; G93.40 Encephalopathy, unspecified; G93.1 Anoxic brain damage, not elsewhere classified; J98.11 Atelectasis; N39.0 Urinary tract infection, site not specified; I48.21 Permanent atrial fibrillation; I46.9 Cardiac arrest, cause unspecified; J98.09 Other diseases of bronchus, not elsewhere classified; E11.51 Type 2 diabetes mellitus with diabetic peripheral angiopathy without gangrene; I95.9 Hypotension, unspecified; B95.5 Unspecified streptococcus as the cause of diseases classified elsewhere; E86.0 Dehydration; Z66 Do not resuscitate; R00.1 Bradycardia, unspecified; E63.9 Nutritional deficiency, unspecified; E87.6 Hypokalemia; D50.9 Iron deficiency anemia, unspecified; I10 Essential (primary) hypertension; B96.4 Proteus (mirabilis) (morganii) as the cause of diseases classified elsewhere; E83.42 Hypomagnesemia; E78.00 Pure hypercholesterolemia, unspecified; K21.9 Gastro-esophageal reflux disease without esophagitis; M19.90 Unspecified osteoarthritis, unspecified site; R53.1 Weakness; R13.10 Dysphagia, unspecified; Z20.828 Contact with and (suspected) exposure to other viral communicable diseases; Z95.5 Presence of coronary angioplasty implant and graft; Z82.49 Family history of ischemic heart disease and other diseases of the circulatory system; Z68.29 Body mass index [BMI] 29.0-29.9, adult
CPT/HCPCS: 31500; 31622; 36415; 36430; 36556; 36600; 36620; 51702; 70450; 71045; 80048; 80053; 80061; 81001; 82040; 82150; 82330; 82533; 82550; 82553; 82607; 82728; 82746; 82803; 82962; 83540; 83550; 83605; 83690; 83735; 83880; 84100; 84134; 84466; 84484; 85025; 85027; 85045; 85379; 85610; 85730; 86850; 86900; 86901; 86920; 87040; 87070; 87077; 87086; 87088; 87186; 87205; 87635; 92950; 93005; 93010; 93971; 94002; 94003; 94660; 95819; 96365; 96366; 99291; 99292; J0171; J0330; J0610; J0696; J1170; J1642; J1644; J1815; J1940; J1953; J2020; J2250; J2270; J2543; J2704; J3010; J3370; J3475; J3480; J3490; J7030; J7042; J7050; J7060; J7120; P9016; P9041; P9047; S0028